=== PATIENT | female | born 1940 | race African-American/Black ===

== ENCOUNTER 2016-11-28 15:19 | Emergency (ER) | payer OTHER ==
--- NOTE | 2016-11-28 16:44 | PROVIDER DOCUMENTATION ---
Addendum entered and electronically signed by Karyn Farah CRNP 19:09: Progress - PLAN OF CARE/RESULTS Progress/Plan/Lab Results: Laboratory Tests 11/28/16 11/28/16 17:13 17:13 WBC 5.87 RBC 4.34 Hgb 12.5 Hct 38.9 MCV 89.6 MCH 28.8 MCHC 32.1 L RDW Std Deviation 15.3 H Plt Count 205 MPV 9.5 Immature Gran % (Auto) 0.0 Neut % (Auto) 60.2 Lymph % (Auto) 27.3 [place] % (Auto) 9.4 H Eos % (Auto) 2.2 Baso % (Auto) 0.9 H Immature Gran # (Auto) 0.00 Neut # (Auto) 3.54 Lymph # (Auto) 1.60 [place] # (Auto) 0.55 Eos # (Auto) 0.13 Baso # (Auto) 0.05 Sodium 134 L Potassium 4.1 Chloride 94 L Carbon Dioxide 25 Anion Gap 15 BUN 33 H Creatinine 4.8 H Estimated GFR/1.73 m2 11 BUN/Creatinine Ratio 7 Glucose 180 H Calculated Osmolality 280 Calcium 11.1 H Total Bilirubin 0.31 AST 14 ALT 5 L Alkaline Phosphatase 71 Total Protein 7.9 Albumin 3.8 Globulin 4.1 Albumin/Globulin Ratio 0.9 Orders Category Date Time Status FLAT/UPRIGHT ABD/1 VIEW CHEST [RAD] Stat Exams 11/28/16 16:37 Completed CBC WITH ELECTRONIC DIFF [HEME] Stat Lab 11/28/16 17:13 Completed COMPREHENSIVE METABOLIC PANEL [CHEM] Stat Lab 11/28/16 17:13 Completed Vital Signs - 24 hr 11/28/16 11/28/16 15:20 18:31 Temperature 97.6 F Pulse Rate 67 67 Respiratory 22 18 Rate Blood Pressure 173/70 197/69 O2 Sat by Pulse 97 98 Oximetry Addendum entered and electronically signed by Karyn Farah CRNP 18:58: Progress - CHANGE OF SHIFT REPORT (ED Provider) Report Given and Care Transferred to:: assumed care of patient from Dr. Soria Time of Transfer: 18:42 Items Pending: Other (dc home) Original Note: HPI-General Adult - General Source: patient - History of Present Illness -Gen Adult Nature of Presenting Problems: 76 yo WM complains of waking up at 2am this morning feeling 'sick.' She had a hard time defining 'sick.' Denied nausea, SOB, cough, wheeze, palpitations, CP. Finally admitted to dizziness and constipation. But overall says she does not feel right. She never misses dialysis and had it yesterday. Location of Pain/Injury: reports: none Pain Radiation: reports: no radiation Quality of Pain: reports: none Severity: reports: moderate Timing: reports: still present Context/Activities at Onset: reports: none Modifying Factors: improves with: nothing Associated Symptoms: reports: constipation, dizziness, weakness. denies: diarrhea, fever/chills, genitourinary problems, loss of appetite, muscle aches, shortness of breath, vomiting Similar Symptoms Previously?: No Recently seen or treated by another doctor?: Yes <Wilmer Soria - Last Filed: 11/28/16 16:38> <Karyn Farah - Last Filed: 11/28/16 18:57> - General Chief Complaint: Weakness Stated Complaint: weakness Time Seen by Provider: 11/28/16 16:01 Allergies/Adverse Reactions: Patient Allergies Allergy/AdvReac Type Severity Reaction Status Date / Time No Known Allergies Allergy Verified 11/28/16 15:41 Home Medications: Home Medication List Medication Instructions Recorded Confirmed Last Taken Type ATORVAstatin [Lipitor] 10 mg PO QHS 05/20/13 11/28/16 11/28/16 History Amlodipine [Norvasc] 5 mg PO DAILY 05/20/13 11/28/16 11/28/16 History Brimonidine 0.15% Ophth Soln 1 drop OP DAILY 05/20/13 11/28/16 08/27/14 05:30 History [Alphagan P 0.15% Ophth Soln] Esomeprazole [Nexium] 40 mg PO DAILY 05/20/13 11/28/16 08/27/14 05:30 History Ferrous Sulfate [Ferrousul] 325 mg PO DAILY 05/20/13 11/28/16 08/27/14 05:30 History Insulin Aspart [Novolog] 15 unit SQ QAM 05/20/13 11/28/16 08/27/14 05:30 History Insulin Glargine [Lantus] 15 unit SUBQ QHS 05/20/13 11/28/16 08/26/14 17:30 History Latanoprost 2.5 ml OP QHS 05/20/13 11/28/16 08/26/14 17:30 History Calcium Acetate 667 mg PO TID 12/25/13 11/28/16 11/27/16 History Folic Acid/Vitamin B Comp W-C 1 each PO DAILY 12/25/13 11/28/16 11/27/16 History [Nephrocaps] Polyethylene Glycol 3350 [Miralax] 255 gm PO DAILY #1 powder 11/28/16 Unknown Rx Review of Systems - Adult - REVIEW OF SYSTEMS - ADULT Constitutional: reports: see HPI. denies: chills, fever Eyes: reports: no symptoms reported Ears, Nose, Mouth & Throat: reports: no symptoms reported Cardiovascular: reports: no symptoms reported Respiratory: reports: no symptoms reported Gastrointestinal: reports: constipation (but had BM this morning) Genitourinary: reports: no symptoms reported Musculoskeletal: reports: no symptoms reported Integumentary: reports: no symptoms reported Neurological: reports: no symptoms reported Psychiatric: reports: no symptoms reported <Wilmer Soria - Last Filed: 11/28/16 16:38> Past History - Adult - PAST MEDICAL HISTORY-ADULT Review of Records: reports: Old Records Reviewed, Nursing Assessment Review, Medications Reviewed, Social history reviewed & non-contributory. 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.) Endocrine/Immune: reports: Diabetes Other Conditions: reports: cataract/glaucoma (glaucoma) - PRIOR SURGERIES/PROCEDURES Surgical/Procedure History: reports: pacemaker, indwelling device (fistula in the left arm), joint replacement (total hip) - IMMUNIZATION STATUS Childhood Immunizations: UTD Flu Vaccine: NUTD - FAMILY HISTORY Family History: reviewed, not pertinent - SOCIAL HISTORY Smoking: denies Substance Use: none/never Alcohol Use Frequency: never Living Situation: family <Wilmer Soria - Last Filed: 11/28/16 16:38> Physical Exam-General - PHYSICAL EXAM-ADULT Initial Vital Signs Reviewed: Yes - CONSTITUTIONAL General Appearance: appears well, alert - EYES Eyes: other (left eye is red, right eyelid doesn't move much) - HEAD, EARS, NOSE, MOUTH & THROAT HENMT: normocephalic/atraumatic - RESPIRATORY Respiratory: lungs clear, normal breath sounds, no pleuratic chest pain, no respiratory distress, no accessory muscle use - CARDIOVASCULAR Cardiovascular: normal peripheral pulses, regular rate, rhythm, no edema - GASTROINTESTINAL (ABDOMEN) Abdominal Exam: normal bowel sounds, non tender, soft. negative: guarding, rigid - MUSCULOSKELETAL Extremity: no pedal edema, no calf tenderness - SKIN Integumentary: normal color - NEUROLOGIC Neurologic: other (Kam's palsy on R side.) - PSYCHIATRIC Psych/Mental Status: normal mood/affect, normal thought content, normal thought process, oriented x 3 <Wimler Soria - Last Filed: 11/28/16 16:38> Departure <Wilmer Soria - Last Filed: 11/28/16 16:38> - Departure Time of Disposition Order: 18:55 Certified Medical Emergency: Emergent <Karyn Farah - Last Filed: 11/28/16 18:57> - Departure DIAGNOSIS: Constipation Qualifiers: Constipation type: other constipation type Qualified Code(s): K59.09 - Other constipation Disposition: HOME 01 Condition: Stable Additional Instructions: Follow up with your primary care doctor. ED Follow Up Instructions: You have been treated by a care provider in the Emergency Department. These instructions are being provided to you so you can have an understanding of how to care for yourself upon discharge. Upon discharge from the Emergency Department, you are responsible for making arrangements for follow-up care by a physician of your choice. Take all prescribed medications as directed. Return to the Emergency Department immediately for any new or worsening symptoms. You may call the Physician Referral phone number at [phone] to obtain a list of Physicians who are taking new patients. Prescriptions: Polyethylene Glycol 3350 [Miralax] 255 gm PO DAILY #1 powder Attestation - Physician/ CHANDRA Attestation Patient care was provided by Advanced Practice Provider:: Yes Advanced Practice Provider:: Karyn Farah Advanced Practice Provider documentation review:: The Mid-level provider documentation, treatment plan and medical decision making was reviewed by the physician who agrees with all treatment and medical decision making by the MLP. <Karyn Farah - Last Filed: 11/28/16 18:57> Physician Attestation
[2016-11-28 17:23] LABS: MANUAL DIFF NEEDED? NO
[2016-11-28 17:33] LABS: BASO% 0.9 % (0.0-0.8); EOS# 0.13 X1000 (0.0-0.7); EOS% 2.2 % (0.0-10.0); HEMATOCRIT 38.9 % (37.0-47.0); HEMOGLOBIN 12.5 g/dL (12.0-16.0); LYMPH% 27.3 % (20.5-51.1); MCH 28.8 PG (27-31); MCHC 32.1 g/dL (33-37); MCV 89.6 FL (81-99); MONO# 0.55 X1000 (0.11-0.59); MONO% 9.4 % (1.7-9.3); MPV 9.5 FL (7.4-10.4); NEUT% 60.2 % (42.2-75.2); PLT 205 X1000 (130-400); RBC 4.34 XMIL (4.2-5.4)
[2016-11-28 17:59] LABS: ALBUMIN 3.8 g/dL (3.5-5.0); CALCIUM 11.1 mg/dL (8.8-10.2); POTASSIUM 4.1 mmol/L (3.5-5.1); TOTAL BILIRUBIN 0.31 mg/dL (0.20-1.00); TOTAL PROTEIN 7.9 g/dL (6.3-8.3)
--- NOTE | 2016-11-28 18:01 | Diag Imaging Result Document ---
PROCEDURE NAME: FLAT/UPRIGHT ABD/1 VIEW CHEST - 11/28/2016 ABDOMINAL SERIES: COMPARISON: 03/25/2015. FINDINGS: The bowel gas pattern appears nonspecific and nonobstructive. There is a moderate amount of retained fecal debris in the colon. There is no free air identified. There are vascular calcifications noted. Upright chest compared with February 2015 shows stable mild cardiomegaly. There is transvenous cardiac pacemaker again seen. There is mild subsegmental atelectasis or scarring at the left base. There are no other acute changes identified. IMPRESSION: 1. Apparent constipation. Nonspecific bowel gas pattern otherwise. 2. Stable mild cardiomegaly. Mild subsegmental atelectasis or scarring at left lung base.
[2016-11-28 18:32] VITALS: BP 197/69
== END 2016-11-28 19:30 | disposition home or self-care (01) ==
LOC: ED 15:19
DX: K59.09 Other constipation (principal); R53.1 Weakness; R42 Dizziness and giddiness; Z95.0 Presence of cardiac pacemaker; I12.0 Hypertensive chronic kidney disease with stage 5 chronic kidney disease or end stage renal disease; N18.6 End stage renal disease; Z99.2 Dependence on renal dialysis; G51.0 Bell's palsy; Z79.899 Other long term (current) drug therapy; E11.9 Type 2 diabetes mellitus without complications; H40.9 Unspecified glaucoma; Z96.649 Presence of unspecified artificial hip joint; Z79.4 Long term (current) use of insulin
CPT/HCPCS: 74022; 80053; 82948; 85025

== ENCOUNTER 2016-12-07 11:57 | Emergency (ER) | payer OTHER ==
--- NOTE | 2016-12-07 12:24 | ED EKG INTERP ---
EKG Interpretation - EKG Time of EKG reading by physician:: 12:02 EKG Read and Signed by:: Abe Juarez EKG Interpretation (*Must complete 3 of following elements*): Abnormal Rate: 61 (left axis deviation; moderate voltage criteria for LVH; ST and T wave abnormality) Rhythm: atrial-paced rhythm with prolonged AV conduction Attestation - Scribe Verification/Attestation Scribe:: Machelle Chatterjee Acting as Scribe for:: Abe Juarez Scribe documention review:: This chart was documented by a scribe and accurately reflects the service the provider performed and the decisions made by the provider.
[2016-12-07] MEDS ORDERED: ASPIRIN PO STA (14:07)
--- NOTE | 2016-12-07 14:20 | PROVIDER DOCUMENTATION ---
HPI-Respiratory General - General Chief Complaint: Shortness of Breath Stated Complaint: SOB Time Seen by Provider: 12/07/16 13:37 Source: patient, family Allergies/Adverse Reactions: Patient Allergies Allergy/AdvReac Type Severity Reaction Status Date / Time No Known Allergies Allergy Verified 12/07/16 12:58 Home Medications: Home Medication List Medication Instructions Recorded Confirmed Last Taken Type ATORVAstatin [Lipitor] 10 mg PO QHS 05/20/13 12/07/16 12/07/16 History Amlodipine [Norvasc] 5 mg PO DAILY 05/20/13 12/07/16 12/07/16 History Brimonidine 0.15% Ophth Soln 1 drop OP DAILY 05/20/13 12/07/16 12/07/16 History [Alphagan P 0.15% Ophth Soln] Esomeprazole [Nexium] 40 mg PO DAILY 05/20/13 12/07/16 12/07/16 History Ferrous Sulfate [Ferrousul] 325 mg PO DAILY 05/20/13 12/07/16 12/07/16 History Insulin Aspart [Novolog] 15 unit SQ QAM 05/20/13 12/07/16 12/07/16 History Insulin Glargine [Lantus] 15 unit SUBQ QHS 05/20/13 12/07/16 12/07/16 History Latanoprost 2.5 ml OP QHS 05/20/13 12/07/16 12/07/16 History Calcium Acetate 667 mg PO TID 12/25/13 12/07/16 12/07/16 History Folic Acid/Vitamin B Comp W-C 1 each PO DAILY 12/25/13 12/07/16 12/07/16 History [Nephrocaps] Polyethylene Glycol 3350 [Miralax] 255 gm PO DAILY #1 powder 11/28/16 12/07/16 12/07/16 Rx - History of Present Illness-Resp Nature of Presenting Problem: 76 y/o F presented to the ER complaining of sudden intermittent and frequent episodes of shortness of breath while she is laying down in bed. She stated that she does not have chest pain, palpitation, dizziness, cough, fever or chills. Daughter at bedside states that the episode usually last for 3-5 minutes and reoccur every 10-15 minutes. She has no hx of viral illness or cancer. Patient walks around with a cane. Quality of Pain: reports: none Severity in ED: reports: moderate Onset/Duration: reports: abrupt, 1 hour ago Timing: reports: intermittent Context: denies: recent URI Cough Quality/Degree: reports: no cough Episode Frequency: frequent episodes Current Respiratory Medication Therapy: Initiated none Modifying Factors: improves with: nothing Associated Symptoms: reports: denies symptoms. denies: chest pain/soreness, flu -like symptoms Similar Symptoms Previously?: Yes Recently seen or treated by another doctor?: No Review of Systems - Adult - REVIEW OF SYSTEMS - ADULT ROS:: limited per condition Constitutional: reports: fatique. denies: chills, fever Eyes: reports: no symptoms reported Ears, Nose, Mouth & Throat: reports: hearing loss Cardiovascular: reports: no symptoms reported Respiratory: reports: shortness of breath. denies: cough, hemoptysis Gastrointestinal: reports: no symptoms reported Genitourinary: reports: no symptoms reported Musculoskeletal: reports: no symptoms reported Integumentary: reports: no symptoms reported Neurological: reports: other (left sided facial palys due to internal ear infection complication) Psychiatric: reports: no symptoms reported Endocrine: reports: no symptoms reported Hematologic/Lymphatic: reports: no symptoms reported Allergic/Immunologic: reports: no symptoms reported All Other Systems: Reviewed and Negative Past History - Adult - PAST MEDICAL HISTORY-ADULT Review of Records: reports: Nursing Assessment Review, Medications Reviewed 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.) Psychiatric: reports: denies history Endocrine/Immune: reports: denies history, Diabetes Other Conditions: reports: cataract/glaucoma (glaucoma) - PRIOR SURGERIES/PROCEDURES Surgical/Procedure History: reports: pacemaker, indwelling device (fistula in the left arm), joint replacement (total hip) - IMMUNIZATION STATUS Childhood Immunizations: UTD Flu Vaccine: NUTD - FAMILY HISTORY Family History: reviewed, not pertinent Physical Exam-General - PHYSICAL EXAM-ADULT Initial Vital Signs Reviewed: Yes - CONSTITUTIONAL General Appearance: mild distress - EYES Eyes: PERRL/EOMI - HEAD, EARS, NOSE, MOUTH & THROAT HENMT: normocephalic/atraumatic, hearing deficit, other (left sided facial palsy secondary to an old ear infex) - NECK Neck: supple - RESPIRATORY Respiratory: lungs clear, normal breath sounds - CARDIOVASCULAR Cardiovascular: regular rate, rhythm, no edema - GASTROINTESTINAL (ABDOMEN) Abdominal Exam: normal bowel sounds, soft - LYMPHATIC Lymphatic: no adenopathy - MUSCULOSKELETAL Extremity: normal range of motion, no pedal edema, other (AV fistula - murmur) - SKIN Integumentary: warm/dry - PSYCHIATRIC Psych/Mental Status: normal mood/affect Progress - PLAN OF CARE/RESULTS Progress/Plan/Lab Results: Vital Signs - 24 hr 12/07/16 11:59 Temperature 98.2 F Pulse Rate 60 Respiratory 20 Rate Blood Pressure 116/43 O2 Sat by Pulse 98 Oximetry Vital Signs - 24 hr 12/07/16 11:59 Temperature 98.2 F Pulse Rate 60 Respiratory 20 Rate Blood Pressure 116/43 O2 Sat by Pulse 98 Oximetry Laboratory Tests 12/07/16 12/07/16 12/07/16 12:48 14:47 14:47 WBC 5.69 RBC 4.18 L Hgb 12.2 Hct 37.3 MCV 89.2 MCH 29.2 MCHC 32.7 L RDW Std Deviation 15.3 H Plt Count 209 MPV 9.7 Immature Gran % (Auto) 0.0 Neut % (Auto) 50.2 Lymph % (Auto) 34.1 [place] % (Auto) 12.5 H Eos % (Auto) 2.5 Baso % (Auto) 0.7 Immature Gran # (Auto) 0.00 Neut # (Auto) 2.86 Lymph # (Auto) 1.94 [place] # (Auto) 0.71 H Eos # (Auto) 0.14 Baso # (Auto) 0.04 PT 10.4 INR 1.02 PTT (Actin FS) 25.6 Troponin T 0.107 H Orders Category Date Time Status Cardiac Monitoring DIRECTED Care 12/07/16 14:10 Active Check glucose DIRECTED Care 12/07/16 16:22 Active Oxygen Therapy- ED Nursing DIRECTED Care 12/07/16 14:11 Active Saline Loc NOW Care 12/07/16 14:10 Active CHEST-2 VIEWS [RAD] Stat Exams 12/07/16 14:10 Completed ABG [RESP] Routine Lab 12/07/16 17:30 Completed BMP [BASIC METABOLIC PANEL] [CHEM] Stat Lab 12/07/16 14:47 Completed CBC WITH ELECTRONIC DIFF [HEME] Stat Lab 12/07/16 12:48 Completed CK PROFILE [SP CHEM] Stat Lab 12/07/16 14:47 Completed D-DIMER [CHEM] Stat Lab 12/07/16 14:47 Completed MAGNESIUM [CHEM] Stat Lab 12/07/16 14:47 Completed PRO B-NATRIURETIC PEPTIDE Stat Lab 12/07/16 14:47 Completed PROTIME WITH INR [COAG] Stat Lab 12/07/16 14:47 Completed PTT [COAG] Stat Lab 12/07/16 14:47 Completed TROPONIN T Stat Lab 12/07/16 14:47 Completed TROPONIN T Stat Lab 12/07/16 16:55 Completed Aspirin Med 12/07/16 14:07 Discontinued 325 mg PO STAT STA Dextrose 50% Syringe [D50w Syringe] Med 12/07/16 16:43 Discontinued 50 ml IV NOW ONE EKG [EKG] Stat Ther 12/07/16 14:10 Ordered Laboratory Tests 12/07/16 12/07/16 12/07/16 12:48 14:47 14:47 WBC 5.69 RBC 4.18 L Hgb 12.2 Hct 37.3 MCV 89.2 MCH 29.2 MCHC 32.7 L RDW Std Deviation 15.3 H Plt Count 209 MPV 9.7 Immature Gran % (Auto) 0.0 Neut % (Auto) 50.2 Lymph % (Auto) 34.1 [place] % (Auto) 12.5 H Eos % (Auto) 2.5 Baso % (Auto) 0.7 Immature Gran # (Auto) 0.00 Neut # (Auto) 2.86 Lymph # (Auto) 1.94 [place] # (Auto) 0.71 H Eos # (Auto) 0.14 Baso # (Auto) 0.04 PT INR PTT (Actin FS) D-Dimer 0.66 H Specimen Type Sample Site pH pCO2 pO2 HCO3 Base Excess Oxyhemoglobin ABG O2 Sat (Calculated) ABG O2 Saturation ABG Carboxyhemoglobin ABG Methemoglobin [place] Test A-a O2 Difference Total Hemoglobin Lactate Blood Gas Modality FiO2 % Sodium 134 L Potassium 3.8 Chloride 91 L Carbon Dioxide 27 Anion Gap 16 BUN 33 H Creatinine 4.5 H Estimated GFR/1.73 m2 11 BUN/Creatinine Ratio 7 Glucose 64 L Calculated Osmolality 274 Calcium 11.1 H Magnesium 2.2 Creatine Kinase 37 Troponin T [id number]-O-Hqstncdtfui Pept 12/07/16 12/07/16 12/07/16 14:47 14:47 14:47 WBC RBC Hgb Hct MCV MCH MCHC RDW Std Deviation Plt Count MPV Immature Gran % (Auto) Neut % (Auto) Lymph % (Auto) [place] % (Auto) Eos % (Auto) Baso % (Auto) Immature Gran # (Auto) Neut # (Auto) Lymph # (Auto) [place] # (Auto) Eos # (Auto) Baso # (Auto) PT 10.4 INR 1.02 PTT (Actin FS) 25.6 D-Dimer Specimen Type Sample Site pH pCO2 pO2 HCO3 Base Excess Oxyhemoglobin ABG O2 Sat (Calculated) ABG O2 Saturation ABG Carboxyhemoglobin ABG Methemoglobin [place] Test A-a O2 Difference Total Hemoglobin Lactate Blood Gas Modality FiO2 % Sodium Potassium Chloride Carbon Dioxide Anion Gap BUN Creatinine Estimated GFR/1.73 m2 BUN/Creatinine Ratio Glucose Calculated Osmolality Calcium Magnesium Creatine Kinase Troponin T 0.107 H Gpj-H-Lnyldhqnzvx Pept 6929 H 12/07/16 12/07/16 16:55 17:30 WBC RBC Hgb Hct MCV MCH MCHC RDW Std Deviation Plt Count MPV Immature Gran % (Auto) Neut % (Auto) Lymph % (Auto) [place] % (Auto) Eos % (Auto) Baso % (Auto) Immature Gran # (Auto) Neut # (Auto) Lymph # (Auto) [place] # (Auto) Eos # (Auto) Baso # (Auto) PT INR PTT (Actin FS) D-Dimer Specimen Type ARTERIAL Sample Site R RADIAL pH 7.44 pCO2 42 pO2 78 HCO3 27.8 H Base Excess 3.9 H Oxyhemoglobin 92.3 L ABG O2 Sat (Calculated) 16.3 ABG O2 Saturation 96.5 ABG Carboxyhemoglobin 2.70 H ABG Methemoglobin 1.7 H [place] Test YES A-a O2 Difference 19.0 Total Hemoglobin 12.5 Lactate 0.60 Blood Gas Modality ROOM AIR FiO2 % 21.0 Sodium Potassium Chloride Carbon Dioxide Anion Gap BUN Creatinine Estimated GFR/1.73 m2 BUN/Creatinine Ratio Glucose Calculated Osmolality Calcium Magnesium Creatine Kinase Troponin T 0.101 H Nzc-J-Dwjnujnsomf Pept - REASSESSMENT Reassessment #1 Time Reassessed: 17:42 Status: improving - XRAY 1 Impression: Normal Departure - Departure Time of Disposition Order: 17:42 DIAGNOSIS: Apneic episode Disposition: HOME 01 Certified Medical Emergency: Emergent Condition: Fair Referrals: Rick Anderson MD [Primary Care Provider] - Ko Mojica MD [STAFF PHYSICIAN] - Call for Appoint. -1 week (Apneic episodes. CTA, EKG, CXR, ABG, CBC and BMP are WNL. Patient might need polysomnography) Instructions: Sleep Apnea, Oxfy-gq-Ostt
[2016-12-07 14:30] LABS: MANUAL DIFF NEEDED? NO
[2016-12-07 14:38] LABS: BASO% 0.7 % (0.0-0.8); EOS# 0.14 X1000 (0.0-0.7); EOS% 2.5 % (0.0-10.0); HEMATOCRIT 37.3 % (37.0-47.0); HEMOGLOBIN 12.2 g/dL (12.0-16.0); LYMPH# 1.94 X1000 (1.2-3.4); LYMPH% 34.1 % (20.5-51.1); MCH 29.2 PG (27-31); MCHC 32.7 g/dL (33-37); MCV 89.2 FL (81-99); MONO# 0.71 X1000 (0.11-0.59); MONO% 12.5 % (1.7-9.3); MPV 9.7 FL (7.4-10.4); NEUT% 50.2 % (42.2-75.2); PLT 209 X1000 (130-400); RBC 4.18 XMIL (4.2-5.4)
[2016-12-07 15:15] LABS: INR 1.02; PROTIME 10.4 Seconds (9.2-11.7); PTT 25.6 Seconds (22.0-36.0)
[2016-12-07 15:29] LABS: CALCIUM 11.1 mg/dL (8.8-10.2); MAGNESIUM 2.2 mg/dL (1.5-2.7); POTASSIUM 3.8 mmol/L (3.5-5.1)
[2016-12-07] MEDS ORDERED: D50W SYRINGE IV ONE (16:43)
[2016-12-07 16:56] VITALS: BP 129/77
--- NOTE | 2016-12-07 17:24 | Diag Imaging Result Document ---
PROCEDURE NAME: CHEST-2 VIEWS - 12/07/2016 FRONTAL AND LATERAL CHEST, 2 VIEWS: FINDINGS: Compared to 11/28/2016. The patient has a left-sided pacemaker. The lungs are well expanded. The heart is mildly prominent. The vessels are not distended. No pneumonia. No pleural effusions. No free air beneath the diaphragm. IMPRESSION: Stable chest.
[2016-12-07 17:38] LABS: ALLEN TEST YES; BE 3.9 mmoll (-3.0-3.0); BLOOD TYPE ARTERIAL; DRAW SITE R RADIAL; METHB 1.7 % (0.0-1.5); O2(CT) 16.3 mL/dL (15.0-23.0); PCO2(98.6) 42 mmHg (35-45); PO2(98.6) 78 mmHg (60-100); SAMPLE BLOOD; SAO2 96.5 % (95.0-100.0); THB 12.5 g/dL (11.5-17.4); pH(98.6) 7.44 (7.35-7.45)
[2016-12-07 17:39] LABS: MODALITY ROOM AIR
[2016-12-07] MEDS ORDERED: DEMEROL IV ONE (18:05)
--- NOTE | 2016-12-08 09:22 | EKG Report ---
Test Performed on : 12/07/2016 12:02:24 PM Test Reason : Chest Pain Blood Pressure : / mmHG Vent. Rate : 061 BPM Atrial Rate : 061 BPM P-R Int : 234 ms QRS Dur : 094 ms QT Int : 400 ms P-R-T Axes : 056 -42 000 degrees QTc Int : 402 ms Atrial-paced rhythm with prolonged AV conduction Left axis deviation Moderate voltage criteria for LVH, may be normal variant ST & T wave abnormality, consider lateral ischemia Abnormal ECG When compared with ECG of 25-MAR-2015 19:58, ST now depressed in Inferior leads Nonspecific T wave abnormality now evident in Inferior leads T wave inversion now evident in Anterolateral leads QT has shortened Unconfirmed Result
== END 2016-12-07 18:26 | disposition home or self-care (01) ==
LOC: ED 11:57
DX: R06.81 Apnea, not elsewhere classified (principal); R06.02 Shortness of breath; R53.83 Other fatigue; G51.0 Bell's palsy; Z95.0 Presence of cardiac pacemaker; I12.0 Hypertensive chronic kidney disease with stage 5 chronic kidney disease or end stage renal disease; N18.6 End stage renal disease; E11.9 Type 2 diabetes mellitus without complications; Z79.899 Other long term (current) drug therapy; Z99.2 Dependence on renal dialysis; H40.9 Unspecified glaucoma; Z96.649 Presence of unspecified artificial hip joint; R94.31 Abnormal electrocardiogram [ECG] [EKG]; Z79.4 Long term (current) use of insulin
CPT/HCPCS: 36415; 71020; 80048; 82550; 82805; 82948; 83735; 83880; 84484; 85025; 85379; 85610; 85730; 93005; 96374; 96375; J2175

== ENCOUNTER 2017-06-12 23:51 | Inpatient (IN) ==
[2017-06-13 00:10] LABS: MANUAL DIFF NEEDED? NO
[2017-06-13 00:16] LABS: BASO% 0.8 % (0.0-0.8); EOS# 0.23 X1000 (0.0-0.7); EOS% 3.9 % (0.0-10.0); HEMATOCRIT 32.1 % (37.0-47.0); HEMOGLOBIN 10.4 g/dL (12.0-16.0); IMM GRAN# 0.02 X1000 (0.0-0.04); IMM GRAN% 0.3 % (0.0-0.5); LYMPH# 1.59 X1000 (1.2-3.4); LYMPH% 26.9 % (20.5-51.1); MCH 28.5 PG (27-31); MCHC 32.4 g/dL (33-37); MCV 87.9 FL (81-99); MONO# 0.49 X1000 (0.11-0.59); MONO% 8.3 % (1.7-9.3); MPV 9.5 FL (7.4-10.4); NEUT% 59.8 % (42.2-75.2); PLT 244 X1000 (130-400); RBC 3.65 XMIL (4.2-5.4)
[2017-06-13 00:27] LABS: INR 1.07; PROTIME 11.3 Seconds (9.2-11.7)
[2017-06-13 00:32] LABS: ALBUMIN 3.9 g/dL (3.5-5.0); CALCIUM 8.3 mg/dL (8.8-10.2); MAGNESIUM 1.8 mg/dL (1.5-2.7); POTASSIUM 3.1 mmol/L (3.5-5.1); TOTAL BILIRUBIN 0.22 mg/dL (0.20-1.00)
[2017-06-13] MEDS ORDERED: TYLENOL PO PRN (04:37)
[2017-06-13] MEDS ORDERED: ZOFRAN IV PRN (04:37)
--- NOTE | 2017-06-13 04:55 | HISTORY AND PHYSICAL ---
PRIMARY CARE PHYSICIAN: Dr. Anderson. CHIEF COMPLAINT: Chest pain, shortness of breath. HISTORY OF PRESENTING ILLNESS: A 76-year-old elderly female with a history of end-stage renal disease, on renal dialysis Thursday, and Thursday, hypertension, diabetes mellitus type 2, had presented to the emergency department due to patient having chest pain and shortness of breath. The patient was seen initially in the emergency department. She was hypotensive and she was given some fluids and her pressure had improved. She was somewhat still symptomatic and due to her presenting symptoms it was thought that she would need admission for further management. At the time of my examination, she had denied any headache, fever, chills, hemoptysis, melena, but complained of chest pain and shortness of breath. PAST MEDICAL HISTORY: Includes end-stage renal disease, on renal dialysis Thursday, and Thursday, hypertension, diabetes mellitus type 2. PAST SURGICAL HISTORY: Pacemaker, bilateral hip replacement. ALLERGIES: No known drug allergies. CURRENT MEDICATIONS: As listed on the medication reconciliation sheet. SOCIAL HISTORY: No history of smoking, alcohol or illicit drug use. FAMILY HISTORY: No history of coronary disease. REVIEW OF SYSTEMS: Twelve point review of systems is as in HPI. Other systems negative. PHYSICAL EXAMINATION: GENERAL: Cooperative, friendly female. She is resting more comfortably now. VITAL SIGNS: Temperature 98.1 degrees, pulse 74, respirations 20, blood pressure 167/71 and she is saturating 95%. HEENT: Atraumatic, normocephalic. Extraocular movements intact. PERRLA. NECK: No masses. CHEST: Bibasilar rales. CARDIOVASCULAR: Regular rate and rhythm. ABDOMEN: Soft. Positive bowel sounds. EXTREMITIES: Trace edema. NEUROLOGIC: She is awake, alert, oriented x2. GENITOURINARY: No bladder distention. SKIN: Warm. LABORATORIES AND STUDIES: Sodium 136, potassium 3.1, chloride 90, CO2 is 25, BUN 35, creatinine is 4.7, glucose is 170. ProBNP is 7156. ASSESSMENT: A 76-year-old elderly female with a history of end-stage renal disease, hypertension, diabetes mellitus type 2 was brought to the emergency department due to patient having chest pain and shortness of breath. She apparently was also having some mental status changes and she was evaluated in the emergency room. Initially, she was hypotensive then her blood pressure resumed back within normal limits. However, due to presenting symptoms she will need admission for further management. 1. Altered mental status. 2. Chest pain. 3. Dyspnea, suspected volume overload. 4. Hypotension, now normotensive. 5. End-stage renal disease. 6. Hypertension. 7. Diabetes mellitus type 2. PLAN: 1. We will admit patient to [facility]. 2. We will continue with neuro checks. 3. We will continue to trend cardiac enzymes. 4. We will consult Nephrology for dialysis. 5. We will also consult Cardiology for chest pain. 6. We will monitor blood pressure closely. 7. Put patient on sliding scale insulin regimen. 8. We will put patient on DVT prophylaxis with SCD. 9. Patient is full code. 10. We will continue to follow and reassess. cc: Manuel Gonzalez MD
--- NOTE | 2017-06-13 07:46 | Diag Imaging Result Doc PS360 ---
EXAM: CHEST-PORTABLE HISTORY: SOB; possible fluid overload TECHNIQUE: Erect AP portable at 0005 COMMENT: The inspiration is slightly less optimal than on 12/07/2016. Otherwise, there has been no significant change in the appearance of the chest. IMPRESSION: Borderline cardiomegaly. Electronically signed by Gage Murguia 06/13/2017 7:44 AM
--- NOTE | 2017-06-13 08:10 | Diag Imaging Result Doc PS360 ---
EXAM: CT THORAX W/O CONTRAST HISTORY: cp TECHNIQUE: CT of the chest without contrast with dose reduction (clarity.) COMMENT: There are some linear opacities present in both lung bases suggesting atelectasis or fibrosis. The esophagus contains fluid and there is a hiatal hernia. There are granulomatous calcifications present in the right lower lobe and middle lobe. The thyroid gland is inhomogeneous and somewhat enlarged with a calcification on the left. There is no evidence of significant adenopathy. There is extensive coronary atherosclerotic calcification. There is arteriosclerosis throughout the abdomen. IMPRESSION: 1. Atelectasis and/or fibrosis in the lung bases. 2. Arteriosclerosis. 3. Multinodular goiter. 4. Hiatal hernia with possible reflux. Electronically signed by Gage Murguia 06/13/2017 8:07 AM
[2017-06-13] MEDS ORDERED: HEPARIN IV PRN (09:41)
[2017-06-13] MEDS ORDERED: NS 2,000 ML MISC PRN (09:41)
[2017-06-13] MEDS ORDERED: TIGHT: 0.2 ML/HR MISC PRN (09:41)
[2017-06-13] MEDS ORDERED: HEPARIN ONE (10:37)
[2017-06-13] MEDS ORDERED: NS 2,000 ML ONE (10:37)
[2017-06-13] MEDS ORDERED: EPOGEN SUBQ ONE (13:57)
[2017-06-13] MEDS: HUMULIN R SUBQ SCH ×2 (15:30→15:35)
--- NOTE | 2017-06-13 16:53 | CONSULTATION ---
DATE OF CONSULTATION: 06/13/2017 INDICATION: Chest pain. HISTORY OF PRESENT ILLNESS: Ms Kline is a 76-year-old black female with a history of end-stage renal disease currently followed by Dr. Vergara, last visit in January 2017. She has a history of sick sinus syndrome with permanent pacemaker implantation in 2011. She presented for evaluation of chest pain that was tight in nature and located in the upper chest area. It lasted for several minutes. It occurred while at rest. There was no other exertional component to this symptom. She reports compliance with all of her dialysis sessions and she would stay for the entire treatment. She has had no recent issues with dialysis and adheres to her Thursday, , Thursday schedule. PAST MEDICAL HISTORY: 1. End-stage renal disease, Thursday, , Thursday dialysis. 2. Hypertension. 3. Diabetes mellitus. 4. History of sick sinus syndrome status post dual chamber Chava permanent pacemaker implantation. SOCIAL HISTORY: No history of tobacco, alcohol or illicit drugs. FAMILY HISTORY: Significant for hypertension. REVIEW OF SYSTEMS: A 10 system review of systems is negative except for those things mentioned in HPI. PHYSICAL EXAMINATION: Vital signs: She is afebrile. Heart rate is 75, her blood pressures have been markedly elevated. The most recent was 188/100. General: She is in no acute distress. HEENT: Oropharynx is moist. Poor dentition. Eye examination shows pink conjunctivae. White sclerae. Neck: Examination shows no obvious thyromegaly or thyroid tenderness. Cardiovascular: She sounds to be in a regular rate and rhythm. She has no murmurs, no S3, no lower extremity edema. Chest: Exam sounds clear to auscultation bilaterally. She has no increased work of breathing. Abdomen: Soft, nontender, nondistended. She has no obvious organomegaly. Skin Exam: Warm and dry throughout without any rashes. 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 Psychiatric: Alert , oriented, pleasant. Normal mood and affect. PERTINENT DATA: Her chest CT without contrast showed atelectasis or fibrosis in bilateral lung bases, evidence for atherosclerosis identified in the coronaries well as throughout the abdominal areas imaged, multinodular goiter, hiatal hernia was visualized as well. Laboratory data shows a white count of 5.9, hematocrit 32, platelet count 244,000, INR 1.07, sodium 136 , potassium 3.1, BUN 35, creatinine 4.7. Her proBNP was 7156. Cardiac enzymes negative times multiple sets. ASSESSMENT: Chest pain in a patient with risk factors for coronary disease, including diabetes, end-stage renal disease and hypertension. PLAN: We will likely check an echocardiogram in the near future. Cardiac enzymes have been negative times multiple sets. We will consider obtaining a myocardial perfusion scan to further evaluate her from an ischemia standpoint. This will likely be performed on Thursday. cc: MD Rick Lowe MD MTDD
[2017-06-13] MEDS: NORVASC PO SCH (18:37)
[2017-06-13] MEDS: CELEXA PO SCH (18:37)
[2017-06-13] MEDS: LIPITOR PO SCH (20:57)
[2017-06-13] MEDS: XANAX PO SCH (20:57)
[2017-06-13] MEDS: XALATAN 0.005% OPH SOLN RIGHT EYE SCH (20:58)
[2017-06-13] MEDS: NEURONTIN PO SCH (20:58)
--- NOTE | 2017-06-13 21:06 | CONSULTATION ---
DATE OF CONSULTATION: 06/13/2017 REASON FOR CONSULTATION: Assistance with management ESRD and volume overload. HISTORY OF PRESENT ILLNESS: Ms Kline is a 76-year-old black female who is well known to me. She is receiving chronic hemodialysis in our clinic in [place]. She normally attends Thursday, and Thursday. She came to the emergency room because she was feeling bad. She is having some trouble characterizing it but she describes being diaphoretic and weak with some increasing shortness of breath. No chills or fevers that she can relate. No nausea or vomiting. No diarrhea. Because her symptoms were worsening, she was brought to the emergency room for evaluation. There is a mention in the note of low blood pressure but all documented blood pressures were within normal limits. She did undergo a CT of the chest which did not demonstrate pulmonary edema. PAST MEDICAL HISTORY: Diabetes, hypertension, end-stage kidney disease, pacemaker, coronary disease. HOME MEDICATIONS: Include Latanoprost drops, amlodipine, atorvastatin, calcium acetate, Simbrinza, alprazolam, hydralazine, citalopram. ALLERGIES: None. SOCIAL HISTORY: She is and lives with her who unfortunately is also quite ill. He has end-stage cardiomyopathy and is on home dobutamine therapy. FAMILY HISTORY: Noncontributory. REVIEW OF SYSTEMS: Otherwise noncontributory. PHYSICAL EXAMINATION: Vital Signs: Blood pressure 179/68, heart rate 70, respirations 13. Afebrile. Generally: She is in no acute distress. Somewhat anxious however. Skin: Somewhat moist and cool. Pupils are equal. Conjunctivae are pink. Oropharynx is dry. Normal dentition. Neck: Supple. Trachea is midline. Neck vein distention is present. Heart: Regular without gallops or murmurs. Lungs: Have equal breath sounds. No crackles or wheezes. Abdomen: Soft, nontender. Bowel sounds present. No organomegaly, masses or bruits. Extremities: Have trace to 1+ edema. No clubbing or cyanosis. Neurologic Exam: Grossly nonfocal except for her hyperacuity. LABORATORY DATA: Are reviewed. IMPRESSION: 1. End-stage kidney disease. She is due for her routine dialysis today. She is actually below her outpatient dry weight so we will remove 2 kg and lower her dry weight. Again her chest CAT scan had no evidence of pulmonary edema. 2. Electrolytes: We will use a 3 potassium bath today because her potassium is below target. 3. Acid base in target. 4. Anemia within target. Will dose with erythropoietin for maintenance. cc: MD Rick Galvan MD
[2017-06-14] MEDS: HUMULIN R SUBQ SCH ×6 (01:46→21:02)
--- NOTE | 2017-06-14 03:53 | PROGRESS NOTE ---
DATE: 06/13/2017 SUBJECTIVE: Patient seen. She is confused. Does appear to be having some chest pain. Denies any fevers or chills. Denies any GI or issues. PHYSICAL EXAMINATION: Vital Signs: Temperature 98, pulse is 68, respiratory rate 18, BP 144/73, saturation 98% on room air. General: Patient is awake and alert. She is in no respiratory distress. She is confused. HEENT: Normocephalic, atraumatic. Neck: Supple. No JVD. CV: Regular rate. Chest: Clear. Abdomen: Soft, nondistended. Extremities: Moves all extremities. ASSESSMENT: 1. Chest pain. 2. End-stage renal disease, on hemodialysis. 3. Hypertension. 4. Diabetes type 2. PLAN: We will continue patient in the hospital. Continue to follow her labs. We will check urine and blood cultures. Further orders as needed. cc: MD Rick Moreau MD
[2017-06-14 05:40] LABS: MANUAL DIFF NEEDED? NO
[2017-06-14 05:51] LABS: BASO% 0.9 % (0.0-0.8); EOS# 0.28 X1000 (0.0-0.7); EOS% 4.3 % (0.0-10.0); LYMPH# 1.38 X1000 (1.2-3.4); LYMPH% 21.4 % (20.5-51.1); MCH 28.7 PG (27-31); MCHC 32.4 g/dL (33-37); MCV 88.8 FL (81-99); MONO# 0.52 X1000 (0.11-0.59); MPV 9.2 FL (7.4-10.4); NEUT% 65.4 % (42.2-75.2); PLT 259 X1000 (130-400); RBC 3.83 XMIL (4.2-5.4)
[2017-06-14 06:07] LABS: CALCIUM 9.4 mg/dL (8.8-10.2); POTASSIUM 3.5 mmol/L (3.5-5.1)
[2017-06-14] MEDS: NORVASC PO SCH (08:29)
[2017-06-14] MEDS: PHOSLO PO SCH ×3 (08:29→17:18)
[2017-06-14] MEDS: PATIENT'S OWN MED OPH SCH (08:29)
[2017-06-14] MEDS: CELEXA PO SCH (08:29)
[2017-06-14] MEDS: APRESOLINE PO SCH ×3 (08:29→17:17)
[2017-06-14] MEDS: XANAX PO SCH (08:29)
--- NOTE | 2017-06-14 13:04 | PROGRESS NOTE ---
DATE: 06/14/2017 SUBJECTIVE: She is not complaining of any chest pain, although she had a somewhat large bowel movement this morning and has had some left upper quadrant discomfort since that time. OBJECTIVE: Vital signs: She is afebrile. Heart rate of 59, blood pressure is 182/59 presently and has been quite elevated in the 170s to 190s for roughly 24 hours. General: She is in mild distress secondary to her abdominal discomfort. Cardiovascular: She is in a regular rate and rhythm. No murmurs. No S3. No lower extremity edema. Chest: Exam is clear bilaterally. She has no increased work of breathing. Abdomen: Soft, nontender. There is no left upper quadrant tenderness. No palpable masses. Skin Exam: Warm and dry throughout without any rashes PERTINENT DATA: White count 6.5, hematocrit 34, platelet count 259,000. Sodium 136, potassium 3.5, BUN 17, creatinine is 3.4. ASSESSMENT: 1. Chest discomfort concerning for possible angina. 2. Abdominal discomfort. 3. Hypertension. PLAN: We will proceed with myocardial perfusion imaging in the morning. She has been made NPO after midnight for the procedure. We will check a flat and upright abdomen x-ray. I believe most likely it is possibly just gas related pains secondary to the large bowel movement this morning. Her blood pressure continues to be quite elevated. We will continue to titrate her medications. I will increase the amlodipine up to a total of 10 mg. cc: MD Rick Lowe MD
--- NOTE | 2017-06-14 13:21 | Diag Imaging Result Doc PS360 ---
EXAM: ABDOMEN FLAT/UPRIGHT HISTORY: abdominal pain TECHNIQUE: Flat and upright abdomen COMMENT: There is radiopaque material throughout the colon. There is some gaseous dilatation of small bowel loops in the midabdomen. The stomach is not distended. 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 Compared to 11/28/2016 the small bowel gas is more notable, otherwise has been no significant change. IMPRESSION: Ileus versus partial small bowel obstruction. Electronically signed by Gage Murguia 06/14/2017 1:19 PM
--- NOTE | 2017-06-14 14:03 | PROGRESS NOTE ---
DATE: 06/14/2017 SUBJECTIVE: Patient without any new complaints this morning. In fact, she states that she just woke up and it is too early for her to have complaints. Denies any diarrhea, constipation, melena. Denies any nausea or vomiting. States her chest pain is better. ASSESSMENT: 1. Acute delirium, improving. 2. Chest pain, stable. 3. Volume overload, improving. 4. End-stage renal disease, on hemodialysis, stable. 5. Type 2 diabetes. PLAN: We will continue to follow and adjust medications as needed. cc: MD Rick Moreau MD
--- NOTE | 2017-06-14 14:39 | ECHO REPORT ---
ORDER DATE: 06/14/2017 INDICATION: 1. Chest pain. 2. History of end-stage renal disease. FINDINGS: 1. The right atrium appears normal size. 2. Mild tricuspid regurgitation. RV systolic pressure is 61. 3. Normal RV size and systolic function. 4. No significant pulmonic insufficiency. 5. Mild left atrial enlargement at 4.8 cm. 6. No mitral prolapse. Mild mitral regurgitation. 7. Normal LV size, end-diastolic dimension of 5.2. Mild left ventricular hypertrophy with a posterior and interventricular septal wall thickness of 1.2 cm each. The LV systolic function does appear somewhat hyperdynamic, with an estimated EF greater than 70%. No obvious segmental wall motion abnormalities. 8. Aortic valve opens well. No evidence of stenosis or insufficiency. 9. Aorta appears normal in visualized segments. 10. No pericardial effusion seen. cc: MD Rick Lowe MD
[2017-06-14] MEDS: NEURONTIN PO SCH (21:00)
[2017-06-14] MEDS: XALATAN 0.005% OPH SOLN RIGHT EYE SCH (21:00)
[2017-06-14] MEDS: LIPITOR PO SCH (21:00)
[2017-06-15] MEDS ORDERED: D50W SYRINGE ONE (05:58)
[2017-06-15] MEDS: HUMULIN R SUBQ SCH ×4 (06:13→21:39)
--- NOTE | 2017-06-15 06:22 | EKG Report ---
Test Performed on : 06/13/2017 4:39:04 PM Test Reason : order Blood Pressure : / mmHG Vent. Rate : 076 BPM Atrial Rate : 076 BPM P-R Int : 204 ms QRS Dur : 090 ms QT Int : 436 ms P-R-T Axes : 045 -43 062 degrees QTc Int : 490 ms Normal sinus rhythm. Left axis deviation Prolonged QT Abnormal ECG When compared with ECG of 12-JUN-2017 23:47, (Unconfirmed) Nonspecific T wave abnormality, improved in Lateral leads Confirmed by Shekhar Crow MD ([id number]) on 06/17/2017 5:50:47 PM
[2017-06-15 06:23] LABS: ALBUMIN 3.8 g/dL (3.5-5.0); CALCIUM 9.6 mg/dL (8.8-10.2); POTASSIUM 4.1 mmol/L (3.5-5.1)
--- NOTE | 2017-06-15 06:44 | EKG Report ---
Test Performed on : 06/12/2017 11:47:32 PM Test Reason : Chest Pain Blood Pressure : / mmHG Vent. Rate : 073 BPM Atrial Rate : 073 BPM P-R Int : 222 ms QRS Dur : 094 ms QT Int : 442 ms P-R-T Axes : 047 -40 038 degrees QTc Int : 486 ms Sinus rhythm. with 1st degree AV block. Possible Left atrial enlargement Left axis deviation Left ventricular hypertrophy Abnormal ECG When compared with ECG of 31-MAY-2017 17:42, No significant change was found Unconfirmed Result
[2017-06-15] MEDS ORDERED: LEXISCAN ONE (07:59)
[2017-06-15] MEDS ORDERED: EPOGEN SUBQ SCH (09:00)
[2017-06-15] MEDS: NORVASC PO SCH (10:59)
[2017-06-15] MEDS: PATIENT'S OWN MED OPH SCH (10:59)
[2017-06-15] MEDS: CELEXA PO SCH (10:59)
[2017-06-15] MEDS: APRESOLINE PO SCH ×3 (10:59→16:15)
[2017-06-15] MEDS: PHOSLO PO SCH ×3 (10:59→16:15)
--- NOTE | 2017-06-15 13:45 | Diag Imaging Result Document ---
PROCEDURE NAME: MYOCARDIAL PERF SCAN, STR/REST - 06/15/2017 MYOCARDIAL PERFUSION SCAN: INDICATION: Chest pain. PROCEDURES PERFORMED: 1. Lexiscan stress. 2. One day stress rest myocardial perfusion imaging. PROCEDURE IN DETAIL: Ms. Kline was brought to the nuclear laboratory and had a resting study with injection of 12.8 mCi of technetium-99m sestamibi with usual imaging protocol utilized. Subsequently she was brought back and had a Lexiscan stress and at peak stress, was injected with 35.9 mCi of technetium-99m sestamibi with usual imaging protocol utilized. FINDINGS: LEXISCAN STRESS RESULTS: 1. Baseline EKG shows an atrial paced rhythm. 2. No clear evidence of ischemic related EKG changes or significant arrhythmias occurred during the course of the Lexiscan stress. She did appear to have ventricular paced beat during the course of the study. PERFUSION IMAGING RESULTS: 1. No evidence of abnormal extracardiac uptake. 2. TID ratio is 1.06. 3. Perfusion imaging shows a small size, mild intensity, fixed defect in the inferior apical and mid inferior segments. This is most likely soft tissue attenuation. Wall motion does appear to be intact in this affected area. 4. Normal ejection fraction of 82%, end-diastolic volume 84. End systolic volume of 18. Normal wall motion. cc: Trev iMreles MD
--- NOTE | 2017-06-15 16:26 | PROGRESS NOTE ---
DATE: 06/15/2017 SUBJECTIVE: Ms. Kline has not had any more complaints of chest pain. She says her abdominal pain is much improved, essentially resolved since yesterday. PHYSICAL EXAMINATION: Vital signs: She is afebrile. Heart rate 64, blood pressure 132/54. General: She is in no acute distress. Cardiovascular: She is in a regular rate and rhythm. She has no obvious murmurs. She has no S3. extremities: She has no lower extremity edema. Chest: Clear bilaterally. She has no increased work of breathing. Abdomen: Soft, nontender, nondistended. No obvious organomegaly. PERTINENT DATA: Sodium is 139, potassium 4.1, BUN 26, creatinine 4.7. ASSESSMENT: 1. Chest pain. 2. Possible ileus, based on abdominal x-ray. PLAN: We will ensure that her primary care physician sees the results of the abdominal x-ray. Currently she is n.p.o. Symptoms seem to be much improved. cc: MD Rick Lowe MD
[2017-06-15] MEDS ORDERED: XANAX PO SCH (21:00)
[2017-06-15] MEDS: LIPITOR PO SCH (21:33)
[2017-06-15] MEDS: NEURONTIN PO SCH (21:33)
[2017-06-15] MEDS: XALATAN 0.005% OPH SOLN RIGHT EYE SCH (21:36)
[2017-06-16 06:23] LABS: ALBUMIN 3.8 g/dL (3.5-5.0); CALCIUM 8.6 mg/dL (8.8-10.2); POTASSIUM 3.9 mmol/L (3.5-5.1)
[2017-06-16] MEDS: HUMULIN R SUBQ SCH ×2 (06:28→15:11)
[2017-06-16] MEDS ORDERED: NS 2,000 ML MISC PRN (07:14)
[2017-06-16] MEDS ORDERED: HEPARIN IV PRN (07:14)
[2017-06-16] MEDS ORDERED: TIGHT: 0.2 ML/HR MISC PRN (07:14)
[2017-06-16] MEDS ORDERED: HEPARIN ONE (08:27)
[2017-06-16] MEDS ORDERED: NS 2,000 ML ONE (08:27)
[2017-06-16] MEDS ORDERED: TOPROL XL PO SCH (09:00)
[2017-06-16 13:18] VITALS: BP 161/48
[2017-06-16] MEDS: PHOSLO PO SCH ×2 (15:11→15:13)
[2017-06-16] MEDS: APRESOLINE PO SCH ×2 (15:11→15:14)
[2017-06-16] MEDS: NORVASC PO SCH (15:13)
[2017-06-16] MEDS: PATIENT'S OWN MED OPH SCH (15:14)
[2017-06-16] MEDS: CELEXA PO SCH (15:14)
--- NOTE | 2017-06-16 15:37 | PROGRESS NOTE ---
DATE: 06/16/2017 TIME SEEN: 0845. SUBJECTIVE: Ms. Kline is resting quietly in bed. The head of the bed is elevated. She denies any chest pain. No increased work of breathing. She states that she had some abdominal discomfort yesterday. It is improved today. She is attempting to sit up to eat her breakfast. OBJECTIVE: Her most recent vital signs: Her temperature is 98.7 degrees, blood pressure 168/51, heart rate 60, respirations 14. She is on 2 L nasal cannula. Last recorded saturation 97%. She has had 300 in. She has had 400 Out in need of dialysis today. LABORATORY DATA: Sodium 139, potassium 3.9, chloride 97, CO2 of 24. BUN 40. Creatinine 6.2, glucose 79, anion gap 18. Calcium 8.6, phosphorus 5.9, albumin 3.8, white count 6.46. Hemoglobin 11, hematocrit 34.0. Platelet count 259,000. PHYSICAL EXAMINATION: This is a 76-year-old -[place] female. She is sitting up in bed. She is attempting to eat her breakfast. She appears in no acute distress. Skin is warm and dry. HEENT: Normocephalic, atraumatic. Conjunctivae pale. She has GLADYS. Mucous membranes are moist. Neck is supple. Trachea in midline. No JVD. Cardiovascular: Regular rate and rhythm. She has a soft systolic murmur. No gallop appreciated. Lungs are clear to auscultation anteriorly. Equal excursion. She is currently on O2. Abdomen is round, soft, nontender to light palpation. Positive bowel sounds. Genitourinary: Not inspected. Minimal void with dialysis assist. Extremities: Have no edema. No clubbing or cyanosis. Neurological: She is alert to person and to place. ASSESSMENT AND PLAN: 1. End-stage renal disease. Patient is due for her routine dialysis treatment today. We will place her on a 3 K bath. She is to dialyze for 3.5 hours. We will pull patient to her dry weight. 2. Electrolytes and acid-base balance. These currently remain stable. 3. Anemia. This is close to target. 4. Altered mental status. This has improved. 5. Fluid volume overload. Again, with assistance with dialysis. 6. Complaints of chest pain. 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 I would like to thank you for allowing us to follow with this patient. Dictated by SHAHIDA Young for David Espinoza MD Data reviewed, discussed with Julio Cesar Swartz on 06/16/17. I agree with the above assessment and plan of care. cc: SHAHIDA Young MD Adnan A. Seljuki, MD [facility]
--- NOTE | 2017-06-17 04:20 | DISCHARGE SUMMARY ---
ADMISSION DATE: 06/13/2017 DISCHARGE DATE: 06/16/2017 DISCHARGE DIAGNOSES: 1. Chest pain and shortness of breath that appear to be multifactorial including advanced age and generalized deconditioning. 2. Ileus that has been nonspecific and has resolved. 3. Hypertension. 4. End-stage renal disease. 5. Anemia secondary to chronic kidney disease. 6. Type 2 diabetes mellitus. HOSPITAL COURSE: Ms. Kline is a 76-year-old female who has a history of end-stage renal disease and has been on hemodialysis 3 times a week. Presented to the emergency department due to patient having chest pain and shortness of breath. She was noted to have hypertension and was given some fluids after which her blood pressure improved. She was admitted to the hospital for further evaluation and care. She did have a CT scan of the chest that showed atelectasis and/or fibrosis in the lung bases but no pneumonia. Consultation with Dr. Trev Mireles was obtained, who did a Lexiscan that has been low risk for myocardial ischemia. Consultation with Dr. Espinoza was also obtained and patient has been having inpatient hemodialysis. Abdominal x-rays were performed on June 14 that showed ileus versus partial small bowel obstruction but patient has clinically improved and she has been having bowel movements. She did have some abdominal discomfort but that has also improved. She is having good bowel movements and has not been having any abdominal issues anymore. She also has been diagnosed with type 2 diabetes mellitus for which we gave her lispro insulin as per sliding scale here at the hospital. Her blood pressure has been stable and we have added metoprolol ER 50 mg daily to her medication regimen. Since patient's condition has improved, we are going to let her go home today. DISCHARGE MEDICATIONS: 1. Amlodipine 5 mg orally once daily. 2. Metoprolol ER 50 mg orally once daily. 3. Atorvastatin 10 mg orally once daily. 4. Gabapentin 100 mg orally once daily at bedtime. 5. Hydralazine 50 mg orally 3 times a day. 6. Alprazolam 0.5 mg orally once daily at bedtime. 7. Citalopram 20 mg orally once daily. 8. Calcium acetate 667 mg 3 times a day with meals as directed. 9. Latanoprost eyedrops as directed. FOLLOWUP: She will follow up with me at the office in approximately 1 week and follow up with Dr. Trev Mireles in approximately 2 weeks. CONDITION: Stable. DISPOSITION: Home. TIME SPENT: A total of more than 40 minutes was spent taking care of this patient during the discharge process today. cc: Rick Anderson MD
--- NOTE | 2017-06-30 02:38 | PROVIDER DOCUMENTATION ---
This chart was entered by Gayb Laws Scribe, acting as scribe for Sea Saini MD. HPI-General Adult - General Chief Complaint: B/P Problems Stated Complaint: PACEMAKER ISSUSES Time Seen by Provider: 06/13/17 00:25 Source: patient Allergies/Adverse Reactions: Patient Allergies Allergy/AdvReac Type Severity Reaction Status Date / Time No Known Allergies Allergy Verified 05/31/17 18:41 Home Medications: Home Medication List Medication Instructions Recorded Confirmed Last Taken Type ATORVAstatin [Lipitor] 10 mg PO QHS 05/20/13 06/13/17 12/07/16 History Amlodipine [Norvasc] 5 mg PO DAILY 05/20/13 06/13/17 12/07/16 History Latanoprost 2.5 ml OP QHS 05/20/13 06/13/17 12/07/16 History Calcium Acetate 667 mg PO TID 12/25/13 06/13/17 12/07/16 History Alprazolam 0.5 mg PO QHS 06/13/17 06/13/17 Unknown History Brinzolamide/Brimonidine Tart 8 ml OP DAILY 06/13/17 06/13/17 Unknown History [Simbrinza 1%-0.2% Eye Drops] Citalopram [Celexa] 20 mg PO DAILY 06/13/17 06/13/17 Unknown History Gabapentin [Neurontin] 100 mg PO QHS 06/13/17 06/13/17 06/12/17 History Hydralazine [Apresoline] 50 mg PO TID 06/13/17 06/13/17 Unknown History Metoprolol Succinate E.r. [Toprol 50 mg PO DAILY #30 tablet 06/16/17 Unknown Rx Xl] - History of Present Illness -Gen Adult Nature of Presenting Problems: 76 year-old female with history of renal failure presents to the ER after having chest pain at her home. She has a pacemaker. She is no longer in chest pain upon arrival, but her heart rate has been very high while in route to the ER. She has dialysis on Thursday, and Saturdays and last dialyzed on . She denies any chest pain upon arrival but indicates she is having shortness of breath. She has a left sided facial droop that is not new. No other symptoms are presented at this time. Patient's daughter lives next door. She had gone over to check on her mother this evening. She found her sitting in a chair and did not appear well. She called 911 for assistance. The patient has complained of chest pain for 2 days and has been short or breath as well. Location of Pain/Injury: reports: none Pain Radiation: reports: no radiation Quality of Pain: reports: none Severity: reports: moderate Onset/Duration: reports: 1-3 hours ago Timing: reports: still present Associated Symptoms: reports: chest pain Similar Symptoms Previously?: No Recently seen or treated by another doctor?: Yes Review of Systems - Adult - REVIEW OF SYSTEMS - ADULT ROS:: ROS per family Constitutional: reports: no symptoms reported, see HPI Eyes: reports: no symptoms reported, see HPI Ears, Nose, Mouth & Throat: reports: no symptoms reported, see HPI Cardiovascular: reports: see HPI, chest pain Respiratory: reports: see HPI, shortness of breath Gastrointestinal: reports: no symptoms reported, see HPI Genitourinary: reports: no symptoms reported, see HPI Musculoskeletal: reports: no symptoms reported, see HPI Integumentary: reports: no symptoms reported, see HPI Neurological: reports: no symptoms reported, see HPI Psychiatric: reports: no symptoms reported, see HPI Endocrine: reports: see HPI All Other Systems: Reviewed and Negative Past History - Adult - PAST MEDICAL HISTORY-ADULT Review of Records: reports: Old Records Reviewed, Nursing Assessment Review, Medications Reviewed, Social history reviewed & non-contributory. 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.) Psychiatric: reports: denies history Endocrine/Immune: reports: denies history, Diabetes Other Conditions: reports: cataract/glaucoma (glaucoma) - PRIOR SURGERIES/PROCEDURES Surgical/Procedure History: reports: EGD, pacemaker, indwelling device (fistula in the left arm), joint replacement (total hip) - IMMUNIZATION STATUS Childhood Immunizations: UTD Flu Vaccine: NUTD - FAMILY HISTORY Family History: reviewed, not pertinent Physical Exam-General - PHYSICAL EXAM-ADULT Initial Vital Signs Reviewed: Yes - CONSTITUTIONAL General Appearance: alert, no apparent distress - EYES Eyes: PERRL/EOMI - HEAD, EARS, NOSE, MOUTH & THROAT HENMT: normocephalic/atraumatic, moist mucous membranes - NECK Neck: non-tender, full range of motion, supple - RESPIRATORY Respiratory: chest non-tender, lungs clear, other (Palpable device left upper chest.) - CARDIOVASCULAR Cardiovascular: normal peripheral pulses, tachycardia, other (Heart todes are distant and muffled.) - GASTROINTESTINAL (ABDOMEN) Abdominal Exam: normal bowel sounds, non tender, soft - LYMPHATIC Lymphatic: no adenopathy - MUSCULOSKELETAL Back Exam: normal inspection, no CVA tenderness Extremity: normal range of motion, non-tender, pedal edema, other (Palpable shunt left upper arm with palpable trill.) - SKIN Integumentary: normal color, normal turgor, warm/dry - NEUROLOGIC Neurologic: tag and label cutter II-XII nml as tested, grossly normal, no motor/sensory deficits - PSYCHIATRIC Psych/Mental Status: normal mood/affect, normal thought content, normal thought process, oriented x 3 Progress - PLAN OF CARE/RESULTS Progress/Plan/Lab Results: Vital Signs - 8 hr 06/12/17 23:45 06/12/17 23:56 Temperature 98.1 F Pulse Rate 74 73 Respiratory Rate 20 16 Blood Pressure 167/71 167/61 O2 Sat by Pulse Oximetry 95 98 Laboratory Results - last 24 hr 06/12/17 00:00 WBC 5.92 RBC 3.65 L Hgb 10.4 L Hct 32.1 L MCV 87.9 MCH 28.5 MCHC 32.4 L RDW Std Deviation 16.0 H Plt Count 244 MPV 9.5 Immature Gran % (Auto) 0.3 Neut % (Auto) 59.8 Lymph % (Auto) 26.9 Boyd % (Auto) 8.3 Eos % (Auto) 3.9 Baso % (Auto) 0.8 Immature Gran # (Auto) 0.02 Neut # (Auto) 3.54 Lymph # (Auto) 1.59 Boyd # (Auto) 0.49 Eos # (Auto) 0.23 Baso # (Auto) 0.05 Orders Category Date Time Status Cardiac Monitoring DIRECTED Care 06/12/17 23:58 Active Saline Loc NOW Care 06/12/17 23:58 Active CHEST-PORTABLE [RAD] Stat Exams 06/13/17 00:00 Taken CBC WITH ELECTRONIC DIFF [HEME] Stat Lab 06/12/17 00:00 Results CK PROFILE [SP CHEM] Stat Lab 06/12/17 00:00 Received COMPREHENSIVE METABOLIC PANEL [CHEM] Stat Lab 06/12/17 00:00 Received LACTATE, PLASMA [CHEM] Stat Lab 06/13/17 00:12 Received MAGNESIUM [CHEM] Stat Lab 06/12/17 00:00 Received PRO B-NATRIURETIC PEPTIDE Stat Lab 06/12/17 00:00 Received PROTIME WITH INR [COAG] Stat Lab 06/12/17 00:00 Received PTT [COAG] Stat Lab 06/12/17 00:00 Received TROPONIN T Stat Lab 06/12/17 00:00 Received EKG [EKG] Stat Ther 06/12/17 23:58 Ordered Result Diagrams: 06/14/17 04:57 06/16/17 04:40 - EKG 1 Time of EKG reading by physician:: 23:47 EKG Read and Signed by:: Sea Saini EKG Interpretation (*Must complete 3 of following elements*): Abnormal Rate: 73 Rhythm: Sinus rhythme with 1st degree AV block. Hildreth: left (prt axis 47 -40 38.) VA Interval: normal (pr interval 222 ms.) Comments: Possible L atrial enlargement. L ventricular hypertrophy. - XRAY 1 XRAY Study: Chest Impression: Abnormal Departure - Departure Date of Disposition Decision: 06/13/17 Time of Disposition Decision: 23:00 DIAGNOSIS: Chest pain Qualifiers: Chest pain type: unspecified Qualified Code(s): R07.9 - Chest pain, unspecified Disposition: ADMITTED INPATIENT 09 Certified Medical Emergency: Emergent Condition: Stable - Critical Care Note This patient required my direct & personal management of CC.: No Attestation - Physician/ CHANDRA Attestation Patient care was provided by Advanced Practice Provider:: No The physician spent face to face time with patient:: Yes Advanced Practice Provider documentation review:: Supervising physician onsite and consulted in the evaluation and care of this patient. The physician did have a face to face encounter with the patient. This chart was documented by the indicated scribe, (Gaby Laws Scribe) and accurately reflects the services I performed and decisions made by me, Sea aSini MD, as attested by the provider's signature.
== END 2017-06-16 16:50 | disposition home or self-care (01) ==
LOC: ED 23:51 → EDIPHOLD 06-13 02:36 → SUATTDRO 06-13 02:36 → 3S 06-13 15:43
PROVIDERS: ADMIT Internal Medicine; ATTEND Internal Medicine

== ENCOUNTER 2018-11-02 06:16 | Inpatient (IN) ==
--- NOTE | 2018-11-01 11:15 | EKG Report ---
Test Performed on : 11/01/2018 10:55:27 AM Test Reason : PAT Blood Pressure : / mmHG Vent. Rate : 060 BPM Atrial Rate : 060 BPM P-R Int : 242 ms QRS Dur : 102 ms QT Int : 452 ms P-R-T Axes : 074 -28 034 degrees QTc Int : 452 ms Atrial-paced rhythm with prolonged AV conduction Moderate voltage criteria for LVH, may be normal variant Abnormal ECG When compared with ECG of 04-FEB-2018 11:24, Nonspecific T wave abnormality no longer evident in Lateral leads QT has shortened Confirmed by Wilmer Soria MD ([id number]) on 11/01/2018 3:57:36 PM
[2018-11-01 12:05] LABS: HEMATOCRIT 30.5 % (37.0-47.0); HEMOGLOBIN 9.4 g/dL (12.0-16.0); MCH 27.2 PG (27-31); MCHC 30.8 g/dL (33-37); MCV 88.4 FL (81-99); RBC 3.45 XMIL (4.2-5.4); RDW 17.3 % (11.5-14.5); WBC 17.59 X1000 (4.8-10.8)
[2018-11-01 12:41] LABS: CALCIUM 10.9 mg/dL (8.8-10.2); CREATININE 3.5 mg/dL (0.5-0.9); POTASSIUM 3.6 mmol/L (3.5-5.1)
[2018-11-02] MEDS ORDERED: KEFZOL 1 GM/D5W 1 GM/50 ML IVPB ONE (06:50)
[2018-11-02] MEDS ORDERED: 1/2 NS 500 ML ONE (06:50)
[2018-11-02] MEDS ORDERED: DIPRIVAN 1% ONE (07:02)
[2018-11-02] MEDS ORDERED: XYLOCAINE-MPF 2% ONE (07:02)
[2018-11-02] MEDS ORDERED: ZOFRAN ONE (08:18)
[2018-11-02] MEDS ORDERED: LABETALOL ONE (08:52)
[2018-11-02] MEDS: APRESOLINE ONE ×2 (08:52→08:56)
--- NOTE | 2018-11-02 09:07 | OPERATIVE NOTE ---
PROCEDURE DATE: 11/02/2018 NAME OF PROCEDURE: Amputation of left 2nd toe with debridement of surrounding tissue. PREOPERATIVE DIAGNOSIS: Gangrene of the left toe. POSTOPERATIVE DIAGNOSIS: Gangrene of the left toe with foot infection. DESCRIPTION OF PROCEDURE: After satisfactory general anesthesia was achieved, the left foot was prepped and draped in a sterile fashion. We made a circular incision around the base of the left second toe. We extended the incision anteriorly past the metatarsophalangeal joint. We then amputated the toe through the metatarsophalangeal joint. The soft tissue was necrotic and purulent. We excised the underlying tendons. We debrided the tissue both anterior and posterior to the metatarsal. We took a rongeur and removed the distal metatarsal. We cultured the wound. Because of the purulent necrotic tissue, we decided to leave it open and pack it with iodoform gauze. We copiously irrigated. Hemostasis was satisfactory. We did pack it with half-inch iodoform gauze and covered it with sterile gauze and a Kerlix. She tolerated it well and was sent to the recovery room in satisfactory condition. cc: Sea Rodas MD
[2018-11-02] MEDS ORDERED: ZOFRAN IV PRN (09:43)
[2018-11-02] MEDS ORDERED: NORCO-7.5 PO PRN (09:43)
[2018-11-02] MEDS ORDERED: HEPARIN IV PRN (10:02)
[2018-11-02] MEDS ORDERED: NS 2,000 ML MISC PRN (10:02)
[2018-11-02] MEDS ORDERED: TIGHT: 0.2 ML/HR FOR DIALYSIS MISC PRN (10:02)
[2018-11-02 11:17] LABS: ALBUMIN 2.3 g/dL (3.5-5.0); CALCIUM 10.6 mg/dL (8.8-10.2); CREATININE 4.3 mg/dL (0.5-0.9); PHOSPHORUS 2.2 mg/dL (2.7-4.5); POTASSIUM 4.2 mmol/L (3.5-5.1)
--- NOTE | 2018-11-02 14:58 | NEPHROLOGY CONSULTATION ---
DATE: 11/02/2018 REASON FOR ADMISSION: Amputation of left second toe on the left foot. REASON FOR CONSULT: End-stage renal disease for dialysis. CONSULTING PHYSICIAN: Dr. Rodas. HISTORY OF PRESENT ILLNESS: Ms. Kline has had ongoing difficulties with her left great toe due to its nonhealing status. It was felt best that it be removed. She came in today for removal. She has been to surgery already this a.m. for amputation of the left second toe on the left. She has been recovered and has been brought to the floor. She remains sedated per earlier anesthesia. There is no family at the bedside. PAST MEDICAL HISTORY: End-stage renal disease, patient is dialyzed on Thursday, , Thursday at the [facility], hypertension, diabetes mellitus type 2, bilateral diabetic upper extremities, cardiac arrhythmias. PAST SURGICAL HISTORY: Pacemaker, bilateral hip replacement, left AV graft, previous tunnel dialysis catheters, amputation of second toe on the left foot today. SOCIAL HISTORY: She lives with her family. No tobacco, alcohol, or illicit drug use. FAMILY HISTORY: Positive for diabetes and hypertension. No end-stage renal disease. ALLERGIES: No known drug allergies noted. HOME MEDICATIONS: Xanax, Lipitor, Simbrinza, calcium acetate, Celexa, Neurontin , Apresoline, latanoprost, and Toprol. REVIEW OF SYSTEMS: Unable to obtain secondary to patient's sedated state. Most information obtained from information from our chart and previous admissions. VITAL SIGNS: Temperature 97.3 degrees, blood pressure 173/81, heart rate 81, respirations 16. She is currently on room air. Last recorded saturation 95%. She has had 150 in. She has only had 3 mL out. LABS: Sodium 135, potassium 4.2, chloride 97, CO2 24, BUN 31, creatinine 4.3, glucose 99, anion gap of 14, calcium 10.6, phosphorus 2.2, albumin 2.3. Previous hemoglobin 9.4 on the 4th. PHYSICAL EXAMINATION: General: This is a 77-year-old female. She appears frail, in no acute distress. Skin: Warm and dry. HEENT: Normocephalic, atraumatic. Conjunctivae pale. Mucous membranes are dry. Neck: Supple. Trachea midline. No evidence of JVD. She does appear to have a slight droop noted to the left side of the face , into the neck region from a previous CVA. Cardiovascular: She is regular rate and rhythm. Systolic murmur is present. Lungs: Clear to auscultation bilaterally. Equal excursion. On O2. Abdomen: Soft, nontender. Positive bowel sounds. Genitourinary: Not inspected. Minimal void with dialysis assist. Extremities: No edema. No clubbing or cyanosis. AV fistula to the left upper extremity with good palpable thrill. Integumentary: Skin is warm and dry. She has a dressing noted to her left foot. Some shadow drainage noted. Neurological: Alert to person. ASSESSMENT AND PLAN: 1. Chronic kidney disease stage 5D. Patient is due for her routine dialysis treatment today. We will plan for dialysis, 2 K bath. She is to dialyze for 3.5 hours. We will hold heparin. Pull patient to her outpatient dry weight. 2. Electrolytes, acid-base balance. To be addressed on dialysis. 3. Anemia. This remains low but stable. 4. 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 Followed by Dr. Rodas. I would like to thank you for allowing us to follow with this patient. Dictated by SHAHIDA Young for David Espinoza MD Face to face encounter, data reviewed, discussed with Julio Cesar Swartz on 11/03/18. I agree with the above assessment and plan of care. cc: SHAHIDA Young MD Robert C. Walker, MD [facility]ITAL[facility]anda
[2018-11-02] MEDS: ASPIRIN PO SCH (20:05)
[2018-11-02] MEDS: APRESOLINE PO SCH ×2 (20:05→20:06)
[2018-11-02] MEDS: ZYLOPRIM PO SCH (20:06)
[2018-11-02] MEDS: CELEXA PO SCH (20:06)
[2018-11-02] MEDS: PATIENT'S OWN MED BOTH EYES SCH (20:07)
[2018-11-02] MEDS: PHOSLO PO SCH (20:07)
[2018-11-02] MEDS: TOPROL XL PO SCH (20:07)
[2018-11-02] MEDS: LIPITOR PO SCH ×2 (22:11→22:13)
[2018-11-02] MEDS: XALATAN 0.005% OPH SOLN RIGHT EYE SCH (22:11)
[2018-11-02] MEDS: XANAX PO SCH (22:14)
[2018-11-03 07:18] LABS: BASO# 0.01 X1000 (0.0-0.2); BASO% 0.1 % (0.0-0.8); EOS# 0.15 X1000 (0.0-0.7); EOS% 1.1 % (0.0-10.0); HEMATOCRIT 27.8 % (37.0-47.0); HEMOGLOBIN 8.7 g/dL (12.0-16.0); LYMPH# 1.22 X1000 (1.2-3.4); LYMPH% 9.1 % (20.5-51.1); MCH 27.5 PG (27-31); MCHC 31.3 g/dL (33-37); MONO# 0.97 X1000 (0.11-0.59); MONO% 7.3 % (1.7-9.3); MPV 9.5 FL (7.4-10.4); NEUT# 10.99 X1000 (1.4-6.5); NEUT% 82.4 % (42.2-75.2); PLT 278 X1000 (130-400); RBC 3.16 XMIL (4.2-5.4); RDW 17.3 % (11.5-14.5); WBC 13.34 X1000 (4.8-10.8)
--- NOTE | 2018-11-03 07:59 | NEPHROLOGY PROGRESS NOTE ---
DATE: 11/03/2018 TIME SEEN: 0635. SUBJECTIVE: Ms. Kline is resting quietly in bed. She has no complaints. OBJECTIVE: Vital Signs: Her most recent vital signs, temperature 97.6 degrees , blood pressure 170/62, heart rate 59, respirations 16. She is currently on room air. Her last recorded saturation was 96%. She has had 372 in. She has had 0 recorded out. Laboratory Data: Her last potassium was 4.2. Previous hemoglobin 9.4. CBC pending this a.m. Physical Examination: General: This is a 77-year-old, female resting quietly in bed. No acute distress. Skin: Warm and dry. HEENT: Normocephalic, atraumatic. Conjunctivae pale. Mucous membranes are dry. Neck: Supple. Trachea midline. No JVD. Cardiovascular: She does have a systolic murmur present. S1, S2, with regular rate. Lungs: Clear to auscultation bilaterally. Equal excursion, on O2. Abdomen: Soft, nontender. Positive bowel sounds. Genitourinary: Not inspected. Minimal void with dialysis assist. Extremities : Patient has a dressing to her left foot. This is dry and intact. Again, some shadow drainage present. AV fistula to the left upper extremity, positive thrill. Dressing was removed. No edema present. Neurological: The patient does continue with a slight droop to her left side of her face and neck, and slight deficit to her left arm. ASSESSMENT AND PLAN: 1. Chronic kidney disease stage 5D. The patient is due for her routine dialysis treatment in the morning. No indications for intervention today. 2. Electrolytes. Her last potassium was 4.2. We will check electrolytes prior to her dialysis treatment in the morning. 3. Acid-base balance. This was stable again with correction on dialysis. 4. Anemia. This has been low but stable. 5. Status postoperative day #1, amputation of second toe on the left, followed by Dr. Rodas and primary care. I would like to thank you for allowing us to follow with this patient. Dictated by SHAHIDA Young for David Espinoza MD Face to face encounter, data reviewed, discussed with Julio Cesar Swartz on 11/03/18. I agree with the above assessment and plan of care. cc: SHAHIDA Young MD Robert C. Walker, MD MTDD
[2018-11-03] MEDS ORDERED: CALMOSEPTINE OINTMENT TOP PRN ×2 (08:22)
[2018-11-03 08:32] LABS: URINE SOURCE CATH
[2018-11-03] MEDS: APRESOLINE PO SCH ×3 (08:43→17:53)
[2018-11-03] MEDS: PHOSLO PO SCH (08:43)
[2018-11-03] MEDS: ZYLOPRIM PO SCH (08:43)
[2018-11-03] MEDS: ASPIRIN PO SCH (08:43)
[2018-11-03] MEDS: TOPROL XL PO SCH (08:44)
[2018-11-03] MEDS: PERIDEX MT SCH ×2 (08:44→22:16)
[2018-11-03] MEDS: CELEXA PO SCH (08:44)
[2018-11-03 09:22] LABS: BILIRUBIN URINE NEGATIVE (NEGATIVE); BLOOD URINE MODERATE (NEGATIVE); COLOR BROWN; GLUCOSE URINE NEGATIVE (NEGATIVE); KETONE URINE NEGATIVE (NEGATIVE); LEUKOCYTES URINE LARGE (NEGATIVE); NITRITE URINE NEGATIVE (NEGATIVE); PH URINE 7.5; PROTEIN URINE 300 mg/dL (NEGATIVE); TURBIDITY URINE TURBID (CLEAR); UROBILINOGEN URINE NORMAL (NORMAL)
[2018-11-03 09:38] LABS: URINE WBC TNTC /HPF (<10)
[2018-11-03] MEDS: CALMOSEPTINE OINTMENT TOP SCH ×3 (11:01→22:16)
[2018-11-03] MEDS ORDERED: VANCOMYCIN 1 GM/NS 1 GM/250 ML IVPB IV ONE (12:47)
[2018-11-03] MEDS: PATIENT'S OWN MED BOTH EYES SCH (15:08)
[2018-11-03] MEDS: XALATAN 0.005% OPH SOLN RIGHT EYE SCH (22:16)
[2018-11-03] MEDS: LIPITOR PO SCH (22:16)
--- NOTE | 2018-11-03 23:45 | GENERAL SURGERY PROGRESS NOTE ---
DATE: 11/03/2018 Her wound is inspected. It looks quite satisfactory. No purulence is noted. Her white count today was down to 13,000. We will give her vancomycin 1 dose after each dialysis. Hopefully, we can discharge her home tomorrow, and then allow them to give her vancomycin after dialysis. I spoke with her family. They understand and agree. cc: Sea Rodas MD
[2018-11-04] MEDS ORDERED: HEPARIN IV PRN (05:37)
[2018-11-04] MEDS ORDERED: NS 2,000 ML MISC PRN (05:37)
[2018-11-04] MEDS ORDERED: TIGHT: 0.2 ML/HR FOR DIALYSIS MISC PRN (05:37)
[2018-11-04] MEDS: XANAX PO SCH (05:55)
[2018-11-04 07:40] LABS: ALBUMIN 2.3 g/dL (3.5-5.0); CALCIUM 9.1 mg/dL (8.8-10.2); CREATININE 3.1 mg/dL (0.5-0.9); PHOSPHORUS 2.4 mg/dL (2.7-4.5); POTASSIUM 3.4 mmol/L (3.5-5.1)
[2018-11-04] MEDS: CALMOSEPTINE OINTMENT TOP SCH (08:50)
--- NOTE | 2018-11-04 08:55 | GENERAL SURGERY PROGRESS NOTE ---
DATE: 11/04/2018 TIME SEEN: 0825 hours in the morning. SUBJECTIVE: Ms. Kline's wound looks about the same. T-max is 99.4 degrees. Hemodynamics are okay. Her culture shows gram-positive cocci. In view of her improvement in white count yesterday and the identification of her having gram-positive cocci, I think we can treat her at home with local wound care by home health and IV vancomycin after each dialysis. I have communicated that with Dr. Espinoza, who will arrange it for the next 2 weeks. I will have her return to the office in 2 weeks. cc: Sea Rodas MD
[2018-11-04] MEDS: CELEXA PO SCH (09:09)
[2018-11-04] MEDS: TOPROL XL PO SCH (09:09)
[2018-11-04] MEDS: ASPIRIN PO SCH (09:09)
[2018-11-04] MEDS: APRESOLINE PO SCH (09:09)
[2018-11-04] MEDS: PHOSLO PO SCH (09:09)
[2018-11-04] MEDS: ZYLOPRIM PO SCH (09:09)
[2018-11-04] MEDS ORDERED: VANCOMYCIN 1 GM/NS 1 GM/250 ML IVPB IV SCH (10:30)
--- NOTE | 2018-11-04 11:24 | NEPHROLOGY PROGRESS NOTE ---
DATE: 11/04/2018 TIME SEEN: 0712. SUBJECTIVE: Ms. Kline is resting quietly in bed. Her head of the bed is elevated. She states that she is hurting today. OBJECTIVE: Her most recent vital signs: Temperature 99.4 degrees, blood pressure 140/49, heart rate 62, respirations 16. She is on room air. Last recorded saturation 100%. She has had 700 in. She has had 25 mL out with need for dialysis. Labs: Sodium 138, potassium 3.4, chloride 97, CO2 27, BUN 22, creatinine 3.1, glucose 96, anion gap of 14, calcium 9.1, phosphorus 2.4, albumin 2.3. Previous hemoglobin 8.7. General: This is a 77-year-old female. She is resting quietly in bed. She appears in modest distress secondary to leg pain. Skin: Warm and dry. HEENT: Normocephalic, atraumatic. Conjunctivae pale. She has GLADYS. Mucous membranes are dry. Neck: Supple. Trachea midline. No JVD. Cardiovascular: She is regular rate and rhythm. S4 is present. Lungs: Clear to auscultation anteriorly equal excursion on room air. Abdomen: Soft, nontender, positive bowel sounds. Genitourinary: Not inspected. Minimal void with dialysis assist. Extremities: Have no edema. No clubbing or cyanosis. She continues with dressing to her left foot. We have inspected her left hip. This does not appear to be any form of calciphylaxis, though it is hardened more than likely secondary to bed decubiti. ASSESSMENT AND PLAN: 1. Chronic kidney disease stage 5D. The patient is due for her routine dialysis treatment today. We will place her on a 3 K bath. She is to dialyze for 3.5 hours. We will attempt to pull her to her outpatient dry weight. 2. Electrolytes and acid-base balance. These are stable. 3. Anemia. This is low but stable. 4. Amputation of left great toe, postoperative day #2, followed by Dr. Rodas. They have identified the wound to be gram-positive cocci. We will plan for vancomycin after dialysis today and to be given for several weeks after that, per Dr. Rodas's orders at the outpatient clinic. I would like to thank you for allowing us to follow with this patient. Dictated by SHAHIDA Young for David Espinoza MD [id number] encounter. They reviewed and discussed with Gurinder Swartz. I agree with the above assessment and plan of care. cc: SHAHIDA Young MD Robert C. Walker, MD [facility]anda
[2018-11-04 14:22] VITALS: BP 148/46
[2018-11-04] MEDS ORDERED: VANCOMYCIN 1 GM/NS 1 GM/250 ML IVPB IV ONE (17:00)
== END 2018-11-04 17:10 | disposition home health service (06) | DRG 255 ==
LOC: OR 06:16 → 4N 06:16 → OBSVTOIN 10:58
PROVIDERS: ADMIT Surgery; ATTEND Surgery
CPT/HCPCS: 80048; 80069; 81001; 82948; 84134; 85025; 85027; 87070; 87075; 87077; 87088; 87186; 87205; 88305; 93005; 93010; 94761; A9270; J0360; J0690; J1644; J2405; J3370; J7030; XXXXX

== ENCOUNTER 2018-12-21 06:05 | Day surgery (SDC) ==
--- NOTE | 2018-12-15 16:39 | EKG Report ---
Test Performed on : 12/15/2018 4:31:39 PM Test Reason : PAT Blood Pressure : / mmHG Vent. Rate : 063 BPM Atrial Rate : 063 BPM P-R Int : 278 ms QRS Dur : 096 ms QT Int : 426 ms P-R-T Axes : 102 -38 018 degrees QTc Int : 435 ms Atrial-paced rhythm with prolonged AV conduction Left axis deviation Pulmonary disease pattern Voltage criteria for left ventricular hypertrophy Abnormal ECG When compared with ECG of 01-NOV-2018 10:55, No significant change was found Unconfirmed Result
[2018-12-21] MEDS ORDERED: XYLOCAINE-MPF 2% ONE (06:35)
[2018-12-21] MEDS ORDERED: KEFZOL 1 GM/D5W 1 GM/50 ML IVPB ONE (06:37)
[2018-12-21] MEDS ORDERED: 1/2 NS 500 ML ONE (06:37)
[2018-12-21] MEDS ORDERED: DIPRIVAN 1% ONE (06:37)
[2018-12-21 06:49] LABS: HEMATOCRIT 37.4 % (37.0-47.0); HEMOGLOBIN 11.4 g/dL (12.0-16.0); MCH 28.3 PG (27-31); MCHC 30.5 g/dL (33-37); MCV 92.8 FL (81-99); MPV 9.1 FL (7.4-10.4); RBC 4.03 XMIL (4.2-5.4); RDW 18.6 % (11.5-14.5); WBC 7.93 X1000 (4.8-10.8)
[2018-12-21 07:14] LABS: CALCIUM 10.7 mg/dL (8.8-10.2); CREATININE 4.6 mg/dL (0.5-0.9); POTASSIUM 4.4 mmol/L (3.5-5.1)
[2018-12-21] MEDS ORDERED: D50W SYRINGE ONE (07:42)
[2018-12-21] MEDS ORDERED: EPHEDRINE ONE (07:46)
[2018-12-21] MEDS ORDERED: D5 1/2 NS 1,000 ML ONE (08:21)
[2018-12-21] MEDS: DEMEROL ONE ×2 (08:25→08:31)
--- NOTE | 2018-12-21 08:31 | OPERATIVE NOTE ---
PROCEDURE DATE: 12/21/2018 PROCEDURE PERFORMED: Left transmetatarsal amputation. SURGEON: Sea Rodas MD. PRINT SUPPORT SPECIALIST: Mary. PREOPERATIVE DIAGNOSIS: Ischemic gangrene toes, left foot. POSTOPERATIVE DIAGNOSIS: Ischemic gangrene toes, left foot. DESCRIPTION OF PROCEDURE: Satisfactory general anesthesia was achieved. The left foot was prepped and draped in a sterile fashion. We made a fishmouth genaro on the dorsum and plantar aspect of the left foot. We incised the skin and carried our incision through the subcutaneous tissue, through the tendinous tissue down to the metatarsal bones. We did this both on the dorsal aspect and the plantar aspect. Some bleeding was present thankfully. We raised the periosteum off the metatarsals and used a bone biter to transect each metatarsal. The distal toes were handed off. We then used a rongeur to rongeur back the metatarsals until we could fold the skin together reasonably without tension. Some of the soft tissue was resected as well, allowing closure of the fishmouth. After we had dissected the bone back and resected the soft tissue, we then copiously irrigated it. We achieved acceptable hemostasis. We then folded the skin edges together and closed them with 2-0 nylon simple stitches. A couple of 4-0 nylons were used laterally for skin approximation. Xeroform, sterile 4x4s, a Kerlix was applied. She tolerated it well, was sent to the recovery room in satisfactory condition. cc: Sea Rodas MD
[2018-12-21] MEDS ORDERED: NS 2,000 ML MISC PRN (10:44)
[2018-12-21] MEDS ORDERED: ZOFRAN IV PRN (14:19)
[2018-12-21] MEDS ORDERED: D5 1/2 NS 1,000 ML IV SCH (14:19)
[2018-12-21] MEDS ORDERED: NORCO-7.5 PO PRN (14:19)
[2018-12-21] MEDS: KEFZOL 500 MG in NS 50 ML IV SCH ×2 (18:30→21:50)
[2018-12-21] MEDS: ASPIRIN PO SCH (18:35)
[2018-12-21] MEDS: COREG PO SCH ×2 (18:35→21:50)
[2018-12-21] MEDS: CELEXA PO SCH (18:36)
[2018-12-21] MEDS: PHOSLO PO SCH (18:36)
[2018-12-21] MEDS: NON-FORMULARY BULK MED BOTH EYES SCH (18:49)
[2018-12-21] MEDS ORDERED: XALATAN 0.005% OPH SOLN BOTH EYES SCH (21:00)
[2018-12-21] MEDS: XANAX PO SCH ×2 (21:51→23:34)
[2018-12-21] MEDS: PERIDEX MT SCH (21:51)
[2018-12-22 06:15] LABS: BASO# 0.02 X1000 (0.0-0.2); BASO% 0.3 % (0.0-0.8); EOS# 1.26 X1000 (0.0-0.7); EOS% 17.5 % (0.0-10.0); HEMATOCRIT 31.9 % (37.0-47.0); HEMOGLOBIN 9.7 g/dL (12.0-16.0); LYMPH# 1.61 X1000 (1.2-3.4); LYMPH% 22.3 % (20.5-51.1); MCHC 30.4 g/dL (33-37); MCV 91.9 FL (81-99); MONO# 0.68 X1000 (0.11-0.59); MONO% 9.4 % (1.7-9.3); MPV 9.3 FL (7.4-10.4); NEUT# 3.65 X1000 (1.4-6.5); NEUT% 50.5 % (42.2-75.2); PLT 171 X1000 (130-400); RBC 3.47 XMIL (4.2-5.4); RDW 18.2 % (11.5-14.5); WBC 7.22 X1000 (4.8-10.8)
[2018-12-22] MEDS: KEFZOL 500 MG in NS 50 ML IV SCH ×2 (06:17→15:33)
[2018-12-22] MEDS: CELEXA PO SCH (08:54)
[2018-12-22] MEDS: COREG PO SCH (08:54)
[2018-12-22] MEDS: ASPIRIN PO SCH (08:54)
[2018-12-22] MEDS: PHOSLO PO SCH (08:54)
[2018-12-22] MEDS: NON-FORMULARY BULK MED BOTH EYES SCH (08:55)
[2018-12-22] MEDS: PERIDEX MT SCH ×2 (08:55→09:06)
[2018-12-22] MEDS ORDERED: SENSIPAR PO SCH (09:00)
--- NOTE | 2018-12-22 13:20 | GENERAL SURGERY PROGRESS NOTE ---
DATE: 12/22/2018 TIME SEEN: 12:35. SUBJECTIVE: Ms. Kline's foot looks wonderful. We redressed her. There is no further bleeding. Her foot is warm. PLAN: Allow her to go home. We will put her on Keflex for a week and she will return to see me in the office in 2 weeks. cc: Sea Rodas MD
[2018-12-22 22:12] VITALS: BP 178/85
== END 2018-12-22 22:14 | disposition home or self-care (01) ==
LOC: 4N 06:05 → OR 06:05
PROVIDERS: ATTEND Surgery
CPT/HCPCS: 80048; 82948; 85025; 85027; 88305; 93005; 93010; A9270; J0690; J2175; J7030; XXXXX

== ENCOUNTER 2019-02-15 13:56 | Inpatient (IN) ==
--- NOTE | 2019-02-15 14:38 | EKG Report ---
Test Performed on : 02/15/2019 2:30:19 PM Test Reason : BLOOD PRESSURE PROBLEMS Blood Pressure : / mmHG Vent. Rate : 061 BPM Atrial Rate : 061 BPM P-R Int : 260 ms QRS Dur : 098 ms QT Int : 426 ms P-R-T Axes : -08 -45 -12 degrees QTc Int : 428 ms Atrial-paced rhythm with prolonged AV conduction Left anterior fascicular block Minimal voltage criteria for LVH, may be normal variant Abnormal ECG When compared with ECG of 15-DEC-2018 17:56, (Unconfirmed) No significant change was found Unconfirmed Result
[2019-02-15 16:49] LABS: BASO# 0.03 X1000 (0.0-0.2); BASO% 0.5 % (0.0-0.8); EOS# 1.15 X1000 (0.0-0.7); EOS% 19.1 % (0.0-10.0); HEMATOCRIT 38.4 % (37.0-47.0); HEMOGLOBIN 12.3 g/dL (12.0-16.0); LYMPH# 1.53 X1000 (1.2-3.4); LYMPH% 25.4 % (20.5-51.1); MCH 27.1 PG (27-31); MCV 84.6 FL (81-99); MONO# 0.23 X1000 (0.11-0.59); MONO% 3.8 % (1.7-9.3); MPV 9.6 FL (7.4-10.4); NEUT# 3.08 X1000 (1.4-6.5); NEUT% 51.2 % (42.2-75.2); PLT 183 X1000 (130-400); RBC 4.54 XMIL (4.2-5.4); RDW 17.1 % (11.5-14.5); WBC 6.02 X1000 (4.8-10.8)
[2019-02-15 16:54] LABS: CALCIUM 8.8 mg/dL (8.8-10.2); CREATININE 3.1 mg/dL (0.5-0.9); POTASSIUM 3.9 mmol/L (3.5-5.1)
[2019-02-15] MEDS ORDERED: NS 2,000 ML MISC PRN (17:02)
--- NOTE | 2019-02-15 19:27 | Diag Imaging Result Doc PS360 ---
EXAM: CHEST-PORTABLE HISTORY: hypertension TECHNIQUE: Chest single view COMPARISON: 11/17/2018 FINDINGS: The lungs are well expanded. The heart is mildly enlarged. There is a left-sided pacemaker. The vessels are not distended. There are no infiltrates. No effusion identified. IMPRESSION: Stable chest Electronically signed by Shaheen Calero 02/15/2019 7:24 PM
[2019-02-15] MEDS: HEPARIN SUBQ SCH (20:25)
--- NOTE | 2019-02-15 20:46 | HISTORY AND PHYSICAL ---
CHIEF COMPLAINT: Elevated blood pressure of greater than 200 mmHg systolic and malfunctioning left AV fistula. HISTORY OF PRESENT ILLNESS: Ms. Kline is an 78-year-old lady with past medical history of end-stage renal disease and essential hypertension who was initially sent to [facility] for malfunctioning left arm AV fistula. However, she was sent back to the emergency room since her systolic blood pressure was greater than 200. In the emergency room, she was found to have a systolic blood pressure initially of 221/87 and then subsequently 250/110. She was immediately taken for dialysis. Dr. Rodas was also already consulted by Dr. Espinoza. She has been receiving dialysis without any complaints at the moment though. I evaluated the patient in the dialysis unit. Currently her blood pressure is 130/80. She is denying any chest pain, shortness of breath, nausea, vomiting, headache. She is denying any abdominal pain. She is denying any arm pain, tingling, numbness, or dizziness. She states at baseline she is able to use her walker and she lives with her daughter. REVIEW OF SYSTEMS: Negative for headache, blurriness of vision. Negative for chest pain, shortness of breath or palpitation. Negative for nausea, vomiting, diarrhea. Negative for tingling or numbness in extremities. PAST MEDICAL HISTORY: 1. End-stage renal disease on Thursday, , Thursday hemodialysis through left arm AV fistula. 2. Bilateral hand diabetic neuropathy. 3. Essential hypertension. 4. Lod-grbzpfo-olnrqpuza type 2 diabetes mellitus. 5. Cardiac arrhythmia status post pacemaker. 6. 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 CVA was affecting left hemisphere. PAST SURGICAL HISTORY: 1. Pacemaker placement. 2. Bilateral hip replacement. 3. Left AV graft. SOCIAL HISTORY: Patient denies any active tobacco, alcohol, or illicit drug use. She lives with her daughter and uses walker at baseline. FAMILY HISTORY: Mother had diabetes, essential hypertension. ALLERGIES: No known drug allergies. HOME MEDICATIONS: She is listed to be taking Xanax 0.5 mg nightly, Lipitor 10 mg nightly, Simbrinza eyedrops daily, calcium acetate 667 mg t.i.d., Celexa 20 mg daily, Neurontin 100 mg t.i.d., hydralazine 50 mg t.i.d., latanoprost 2.5 mL eyedrops nightly, Toprol extended release 50 mg daily. Updated medication list is pending. PHYSICAL EXAMINATION: VITAL SIGNS: Currently vitals in the dialysis unit suggests temperature of 97.7 degrees, pulse 62, respiratory rate 14, blood pressure 136/80, saturating 100% on room air. GENERAL: Patient does not appear in any acute distress. HEENT: Oral cavity is moist. LUNGS: Air entry bilaterally equal. No wheeze, rhonchi, crackles. CARDIOVASCULAR: S1, S2 normal. No murmur or gallop. ABDOMEN: Soft, nontender. EXTREMITIES: No lower extremity edema. NEUROLOGIC: She has a right-sided ptosis, right-sided facial droop. She is able to lift right upper and lower extremity above ground level. Her speech appears normal. She is alert and oriented x3. She is answering all questions appropriately. LABORATORY STUDIES: Suggestive of normal WBC, normal platelet count, normal electrolytes. Microbiology: No data. IMAGING STUDIES: EKG performed today was suggestive of atrially paced rhythm. There was no ST-T elevation. The patient is not complaining of any chest pain. ASSESSMENT AND PLAN: 1. Hypertensive urgency with systolic blood pressure greater than 220 mmHg. The patient's blood pressure has essentially normalized after dialysis. I will continue her home carvedilol and I will add back her hydralazine as tolerated. 2. End-stage renal disease, on hemodialysis. She is currently receiving hemodialysis through left forearm arteriovenous fistula. Dr. Rodas has been consulted to see if this would need further intervention if it starts malfunctioning again. DISPOSITION: It is already late in the day, and though patient's blood pressure is normal, I will just monitor her overnight on the telemetry unit. Plan of care discussed with the patient. All of her questions have been answered. Nephrology and General Surgery is on board. I will start patient on home aspirin for secondary prophylaxis. cc: Michael Aragon MD
[2019-02-15] MEDS ORDERED: COREG PO SCH (21:00)
[2019-02-15] MEDS: ASPIRIN PO SCH (23:14)
[2019-02-15] MEDS: APRESOLINE IV PRN (23:14)
[2019-02-16] MEDS: HEPARIN SUBQ SCH ×3 (05:57→23:00)
[2019-02-16 06:44] LABS: BASO# 0.27 X1000 (0.0-0.2); BASO% 4.1 % (0.0-0.8); EOS# 1.17 X1000 (0.0-0.7); EOS% 17.8 % (0.0-10.0); HEMOGLOBIN 13.9 g/dL (12.0-16.0); LYMPH# 1.56 X1000 (1.2-3.4); LYMPH% 23.8 % (20.5-51.1); MCH 28.2 PG (27-31); MCHC 31.6 g/dL (33-37); MCV 89.2 FL (81-99); MONO# 0.58 X1000 (0.11-0.59); MONO% 8.8 % (1.7-9.3); MPV 9.9 FL (7.4-10.4); NEUT# 2.98 X1000 (1.4-6.5); NEUT% 45.5 % (42.2-75.2); PLT 176 X1000 (130-400); RBC 4.93 XMIL (4.2-5.4); RDW 18.4 % (11.5-14.5); WBC 6.56 X1000 (4.8-10.8)
[2019-02-16] MEDS: LIPITOR PO SCH (08:17)
[2019-02-16] MEDS: PRINIVIL PO SCH (08:42)
[2019-02-16] MEDS: CELEXA PO SCH (08:43)
[2019-02-16] MEDS: BRINZOLAMIDE BOTH EYES SCH ×3 (08:44→18:27)
[2019-02-16] MEDS: ASPIRIN PO SCH (08:44)
[2019-02-16] MEDS: BRIMONIDINE TART BOTH EYES SCH ×3 (08:44→18:27)
[2019-02-16] MEDS: APRESOLINE IV PRN (08:46)
[2019-02-16] MEDS: PHOSLO PO SCH ×3 (08:46→18:23)
[2019-02-16] MEDS ORDERED: ASPIRIN PO SCH (09:00)
[2019-02-16] MEDS ORDERED: APRESOLINE PO SCH (09:00)
[2019-02-16 09:23] LABS: ALB/GLOB RATIO 0.8; ALBUMIN 3.3 g/dL (3.5-5.0); CALCIUM 9.2 mg/dL (8.8-10.2); CREATININE 3.3 mg/dL (0.5-0.9); MAGNESIUM 1.8 mg/dL (1.5-2.7); POTASSIUM 4.1 mmol/L (3.5-5.1); TOTAL BILIRUBIN 0.28 mg/dL (0.20-1.00); TOTAL PROTEIN 7.6 g/dL (6.3-8.3)
--- NOTE | 2019-02-16 10:41 | PROGRESS NOTE ---
DATE: 02/16/2019 INTERVAL HISTORY: Though after dialysis I was informed patient's blood pressure was 130/80. Once she returned to floor, her blood pressure was noted to be again very high in 200s. She only received intravenous hydralazine overnight. SUBJECTIVE: The patient denies any headache, blurring of vision, chest pain, shortness of breath, or abdominal pain. We discussed about her elevated blood pressure and adding home medications. VITAL SIGNS: Currently, temperature 98.9 degrees, pulse 60, respiratory rate 20, blood pressure 192/47 and saturating 100% on room air. PHYSICAL EXAMINATION: General: Does not appear in any acute distress. HEENT: Oral cavity is moist. Lungs: Air entry bilaterally equal. No wheeze, rhonchi, or crackles. Cardiovascular: S1, S2 normal. No murmur, rub, or gallop. Abdomen: Soft, nontender. Extremities: No lower extremity edema. The left upper extremity has AV fistula with adequate good thrill. Neurologic: She has a right-sided ptosis, right-sided facial droop. She is able to lift both upper and lower extremities above ground level against gravity. She does not have slurring of speech. LABORATORY: Her hemoglobin, hematocrit, and platelets have been within acceptable range. Normal electrolytes except elevated creatinine. Microbiology shows no data. IMAGING: Chest x-ray yesterday had stable chest. ASSESSMENT AND PLAN: 1. Hypertensive urgency with systolic blood pressure greater than 220. Continue p.o. hydralazine and p.o. lisinopril. Give IV hydralazine as needed. The goal of blood pressure is around 170 systolic. If she is able to achieve that blood pressure later during the day, my plan is to discharge her on p.o. medication. 2. End-stage renal disease on Thursday, , Thursday hemodialysis. Initially, there were concerns of left arm AV fistula malfunctioning, and so General Surgery was consulted. However, eventually the left arm AV fistula started working just fine. 3. Disposition: Based on her blood pressure, my plan is to discharge her later today. cc: Michael Aragon MD
--- NOTE | 2019-02-16 11:06 | PROVIDER DOCUMENTATION ---
This chart was entered by Francia Mejia Scribe, acting as scribe for Phillip Garcia MD. HPI-General Adult - General Stated Complaint: HIGH BP Time Seen by Provider: 02/15/19 15:05 Source: patient, RN/MD Allergies/Adverse Reactions: Patient Allergies Allergy/AdvReac Type Severity Reaction Status Date / Time No Known Allergies Allergy Verified 01/24/19 08:16 Home Medications: Home Medication List Medication Instructions Recorded Confirmed Last Taken Type Latanoprost 1 drop BOTH EYES QHS 05/20/13 02/15/19 01/25/19 21:00 History Alprazolam 0.5 mg PO QHS 06/13/17 02/15/19 01/25/19 21:00 History Citalopram [Celexa] 20 mg PO DAILY 06/13/17 02/15/19 01/25/19 08:00 History Aspirin 81 mg PO DAILY #120 chewtab 12/01/17 02/15/19 01/20/19 Rx Brinzolamide/Brimonidine Tart 1 drop BOTH EYES TID 11/01/18 02/15/19 01/25/19 21:00 History [Simbrinza 1%-0.2% Eye Drops] Calcium Acetate 667 mg PO DAILY 11/01/18 02/15/19 01/25/19 08:00 History Carvedilol [Coreg] 12.5 mg PO BID 12/21/18 01/26/19 01/25/19 21:00 History Cinacalcet HCl [Sensipar] 30 mg PO DIRECTED 12/21/18 02/15/19 02/14/19 History Atorvastatin Calcium 40 mg PO HS 01/26/19 02/15/19 01/25/19 08:00 History - History of Present Illness -Gen Adult Nature of Presenting Problems: 78 yobf presents to the ed with c/o LUE fistula not working correctly when pt went to dialysis this am. pt came to ed and dr zhang saw pt in ed and has sent upstairs for dialysis. pt c/o generalized itching and denies any pain Location of Pain/Injury: reports: upper extremity (fistula not working), other (fistula not working correctly) Quality of Pain: reports: none Severity: reports: mild Onset/Duration: reports: this morning Timing: reports: still present Context/Activities at Onset: reports: light activity Modifying Factors: improves with: nothing Associated Symptoms: denies: back/neck pain, chest pain, diaphoresis, fever/chills, nausea, shortness of breath, syncope, vomiting Similar Symptoms Previously?: Yes Recently seen or treated by another doctor?: Yes Review of Systems - Adult - REVIEW OF SYSTEMS - ADULT Constitutional: denies: chills, fever Eyes: reports: no symptoms reported Ears, Nose, Mouth & Throat: reports: no symptoms reported Cardiovascular: denies: chest pain, palpitations, syncope Respiratory: denies: cough, shortness of breath, wheezing Gastrointestinal: reports: no symptoms reported Genitourinary: reports: no symptoms reported Musculoskeletal: denies: back pain, neck pain Integumentary: reports: no symptoms reported Neurological: denies: dizziness/vertigo, headache/migraines Psychiatric: reports: no symptoms reported Endocrine: reports: no symptoms reported Hematologic/Lymphatic: reports: no symptoms reported Allergic/Immunologic: reports: no symptoms reported All Other Systems: Reviewed and Negative Past History - Adult - PAST MEDICAL HISTORY-ADULT Review of Records: reports: Nursing Assessment Review, Medications Reviewed Major Childhood Illnesses: reports: denies history Cardiovascular: reports: HTN, pacemaker Respiratory: reports: denies history Gastrointestinal: reports: GERD, other (hx of esophageal dilation) Obstetrical/Gynecological: reports: denies history Genitourinary: reports: dialysis (last dialyzed today; regularly days are Thursday, and Thursday), ESRD, kidney disease Musculoskeletal: reports: denies history Hand Dominance: Right Handed Neurological: reports: CVA, stroke deficits, 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.) Psychiatric: reports: denies history Endocrine/Immune: reports: Diabetes Diabetes Type: Type 2 Other Conditions: reports: cataract/glaucoma (glaucoma), deaf/hard of hearing - PRIOR SURGERIES/PROCEDURES Surgical/Procedure History: reports: recent surgery (had a digit removed from left foot), EGD, pacemaker, indwelling device (fistula in the left arm), joint replacement (total hip) - IMMUNIZATION STATUS Childhood Immunizations: UTD, See Nurse Assessment Flu Vaccine: See Nurse Assessment - FAMILY HISTORY Family History: reviewed, not pertinent - SOCIAL HISTORY Smoking: denies Substance Use: denies Living Situation: family Physical Exam-General - PHYSICAL EXAM-ADULT Initial Vital Signs Reviewed: Yes (HTN 240/120) - CONSTITUTIONAL General Appearance: appears well, alert, no apparent distress, obese - EYES Eyes: PERRL/EOMI, pink conjunctivae - HEAD, EARS, NOSE, MOUTH & THROAT HENMT: moist mucous membranes, dental decay - NECK Neck: non-tender, full range of motion, normal inspection - RESPIRATORY Respiratory: chest non-tender, lungs clear, normal breath sounds - CARDIOVASCULAR Cardiovascular: normal peripheral pulses, regular rate, rhythm - GASTROINTESTINAL (ABDOMEN) Abdominal Exam: normal bowel sounds, non tender, soft, no organomegaly, no pulsatile mass - LYMPHATIC Lymphatic: no adenopathy - MUSCULOSKELETAL Back Exam: normal inspection, no CVA tenderness, no vertebral tenderness Extremity: normal capillary refill, pelvis stable, other (dialysis fistula in E it is not working correctly. dr zhang is in ed) - SKIN Integumentary: normal color, normal turgor, warm/dry - NEUROLOGIC Neurologic: grossly normal - PSYCHIATRIC Psych/Mental Status: normal mood/affect, normal thought content, normal thought process, oriented x 3 Progress - PLAN OF CARE/RESULTS Progress/Plan/Lab Results: Vital Signs - 8 hr 02/15/19 14:24 Temperature 97.7 F Pulse Rate 65 Respiratory Rate 20 Blood Pressure 221/87 O2 Sat by Pulse Oximetry 96 Orders Category Date Time Status EKG [EKG] Stat Ther 02/15/19 14:32 Draft Result Diagrams: 02/16/19 05:53 02/16/19 07:25 - REASSESSMENT Reassessment #1 Time Reassessed: 15:24 (pt went upstairs for dialysis) Status: unchanged - EKG 1 Time of EKG reading by physician:: 14:30 EKG Read and Signed by:: Phillip Garcia EKG Interpretation (*Must complete 3 of following elements*): Abnormal Rate: 61 Rhythm: atrial paced rhythm w/ prolonged AV conduction Jackson: normal QRS: LVH, other (LAFB) OR Interval: normal ST Wave: normal - CONSULTS/PCP/HOSPITALIST Notification #1 *Consult/PCP/Hospitalist*: hospitalist Time Discussed: 15:16 Consult Disposition: Admit #2 Consult: dr contreras sx Time Discussed: 15:24 Reason/Comments: phone consult Departure - Departure Date of Disposition Decision: 02/15/19 Time of Disposition Decision: 18:50 DIAGNOSIS: End stage chronic kidney disease, Dialysis AV fistula malfunction Disposition: ADMITTED INPATIENT 09 Certified Medical Emergency: Emergent Condition: Serious - Critical Care Note This patient required my direct & personal management of CC.: Yes Total Time (mins): 32 Critical Care Statement: This patient required my direct personal management to treat or rule out processes, the absence of which, could potentiallly result in sudden, clinically significant life or limb threatening deterioration. Attestation - Physician/ CHANDRA Attestation Patient care was provided by Advanced Practice Provider:: No The physician spent face to face time with patient:: Yes Advanced Practice Provider documentation review:: Supervising physician onsite and consulted in the evaluation and care of this patient. The physician did have a face to face encounter with the patient. This chart was documented by the indicated scribe, (Francia Mejia Scribe) and accurately reflects the services I performed and decisions made by me, Phillip Garcia MD, as attested by the provider's signature.
--- NOTE | 2019-02-16 11:44 | NEPHROLOGY PROGRESS NOTE ---
DATE: 02/16/2019 SUBJECTIVE: No complaints. OBJECTIVE: Vital signs: Blood pressure 200/60, heart rate 60, respirations 20, afebrile. Generally: No acute distress. Skin: Warm and dry. Neck: Neck veins are not distended. Cardiovascular: Heart is regular with S4. Lungs: Equal, shallow, no crackles. Abdomen: Soft, nontender. Bowel sounds present. Extremities: No edema, clubbing, or cyanosis. Left upper arm fistula with normal pulse and thrill. IMPRESSION: 1. Access complication. No difficulty with dialysis last evening. Exam is normal this morning and Dr. Rodas's exam did as well. We agree that no intervention is required at this time. From that perspective, she can certainly be discharged and we can study her access as an outpatient. 2. Hypertension. Blood pressure remains elevated. I will add an angiotensin receptor kendall. Her beta-kendall has been withheld because of bradycardia. Titrate her hydralazine to 100 mg t.i.d. cc: David Espinoza MD
[2019-02-16] MEDS: APRESOLINE PO SCH ×3 (15:30→23:00)
[2019-02-16] MEDS ORDERED: HALDOL IM ONE (16:43)
[2019-02-16] MEDS ORDERED: HALDOL IV ONE (16:43)
[2019-02-16] MEDS: COREG PO SCH (18:26)
[2019-02-16] MEDS: XANAX PO SCH (19:55)
[2019-02-16] MEDS: XALATAN 0.005% OPH SOLN BOTH EYES SCH (19:56)
[2019-02-16] MEDS: MELATONIN PO SCH (20:16)
[2019-02-17] MEDS: COREG PO SCH ×3 (05:04→22:17)
[2019-02-17] MEDS: XALATAN 0.005% OPH SOLN BOTH EYES SCH ×2 (05:04→22:02)
[2019-02-17] MEDS: XANAX PO SCH ×2 (05:05→22:03)
[2019-02-17] MEDS ORDERED: NS 2,000 ML MISC PRN (05:50)
[2019-02-17] MEDS ORDERED: HEPARIN IV PRN (05:50)
[2019-02-17] MEDS ORDERED: TIGHT: 0.2 ML/HR FOR DIALYSIS MISC PRN (05:50)
[2019-02-17] MEDS: HEPARIN SUBQ SCH ×3 (07:03→22:03)
[2019-02-17] MEDS: PHOSLO PO SCH ×3 (07:04→17:30)
--- NOTE | 2019-02-17 09:37 | NEPHROLOGY PROGRESS NOTE ---
DATE: 02/17/2019 SUBJECTIVE: Patient resting in bed. She is confused as to where she is and what day it is. She reorients quickly. She is calm and cooperative. OBJECTIVE: Vital Signs: Temperature 97.5 degrees, pulse 71, respiratory rate 18, blood pressure 159/66. Intake 460 mL, output not measured. General: This is an elderly female, resting in bed. She does not appear in any distress. HEENT: Normocephalic, atraumatic. Her oral mucosa is moist. Neck: Supple. No JVD. Cardiovascular: Regular rate and rhythm. No murmur or gallop appreciated. Pulmonary: She is clear bilaterally with equal excursion. Abdomen: Soft with positive bowel sounds. : Not inspected. Minimal void with hemodialysis assist. Extremities: Left upper extremity with AV fistula and positive thrill. Integumentary: Skin appears warm and dry otherwise. LABORATORY DATA: None available yet. ASSESSMENT AND PLAN: 1. Chronic kidney disease 5D. Today is her routine dialysis day. Based on her previous labs, will dialyze on a 2-potassium bath/ultrafiltrate to dry weight, 3.5-hour treatment. 2. Hypertensive urgency. Blood pressure under much better control. Again, will try to ultrafiltrate to dry weight with assistance to that. She does continue on Coreg, Apresoline, Prinivil. Dictated by SHAHIDA Meek for David Espinoza MD Face to face encounter, data reviewed, discussed with Beverly Ponce on 02/17/19. I agree with the above assessment and plan of care. cc: David Espinoza MD [facility]
[2019-02-17] MEDS: LIPITOR PO SCH (10:46)
[2019-02-17] MEDS: APRESOLINE PO SCH ×3 (10:46→22:17)
[2019-02-17] MEDS: PRINIVIL PO SCH (10:46)
[2019-02-17] MEDS: BRIMONIDINE TART BOTH EYES SCH ×3 (10:47→17:31)
[2019-02-17] MEDS: CELEXA PO SCH (10:47)
[2019-02-17] MEDS: BRINZOLAMIDE BOTH EYES SCH ×3 (10:47→17:31)
[2019-02-17] MEDS: ASPIRIN PO SCH (10:47)
--- NOTE | 2019-02-17 14:41 | PROGRESS NOTE ---
DATE: 02/17/2019 SUBJECTIVE: Today Ms. Kline refers to be feeling fairly okay. Denies any new complaints. OBJECTIVE: Vital signs: Blood pressure is 157/60, pulse of 59, respirations 22, temperature 97.6 degrees. General: Ms Kline is an 78-year-old female. She is in bed in no distress. HEENT: Mucosa is pink and moist. Anicteric. Acyanotic. Neck: Supple. Chest: Clear to auscultation. Cardiovascular: Regular rate and rhythm. Abdomen: Soft. Extremities: No pedal edema. 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 There is also an AV fistula on the right. LABORATORY DATA: None for today. ASSESSMENT: 1. Hypertensive urgency on presentation with initial blood pressure reading of 221. The patient's blood pressure has significantly improved with medication and ultrafiltration. 2. Endstage renal disease on hemodialysis Thursday, , and Saturdays. It appears that the patient had a normal dialysis through the fistula today. 3. Disposition. I understand the patient lives at home with home health. We will most likely get her discharged her 1st thing in the morning. cc: Dawson Denise MD
[2019-02-17] MEDS: MELATONIN PO SCH (22:03)
[2019-02-18] MEDS: HEPARIN SUBQ SCH ×2 (06:28→14:17)
[2019-02-18] MEDS: PHOSLO PO SCH ×4 (06:28→12:26)
[2019-02-18] MEDS: LIPITOR PO SCH (08:10)
[2019-02-18] MEDS: CELEXA PO SCH (08:10)
[2019-02-18] MEDS: ASPIRIN PO SCH (08:11)
[2019-02-18] MEDS: PRINIVIL PO SCH (08:11)
[2019-02-18] MEDS ORDERED: SENSIPAR PO SCH (09:00)
[2019-02-18] MEDS: COREG PO SCH (10:54)
[2019-02-18] MEDS: APRESOLINE PO SCH ×2 (10:54→14:51)
[2019-02-18] MEDS: BRINZOLAMIDE BOTH EYES SCH ×2 (10:55→14:17)
[2019-02-18] MEDS: BRIMONIDINE TART BOTH EYES SCH ×2 (10:55→14:17)
[2019-02-18 14:35] VITALS: BP 156/72
--- NOTE | 2019-02-18 16:46 | NEPHROLOGY PROGRESS NOTE ---
DATE: 02/18/2019 SUBJECTIVE: Patient resting in bed. No complaints. OBJECTIVE: Vital Signs: Temperature 97 degrees, pulse 61, respiratory rate 20, blood pressure 132/50. Intake 450 mL. Output 1.1 L on dialysis. General: This is an elderly female, resting in bed. She is in no acute distress HEENT: Normocephalic, atraumatic. Oral mucosa moist. Neck: Supple. No neck veins. Cardiovascular: Regular. Pulmonary: Clear bilaterally. Abdomen: Soft. Genitourinary: Not inspected. Hemodialysis. Extremities: No clubbing, cyanosis, edema. Left upper extremity AV fistula noted. Integumentary: Warm and dry. LABORATORY DATA: None. ASSESSMENT AND PLAN: 1. Chronic kidney disease 5 D. She dialyzed yesterday, 1.1 L removed. Have no treatment scheduled for today. If she does remain tomorrow, plan to dialyzer her at that time. 2. Hypertensive urgency. Blood pressure currently controlled. 3. Disposition. Anticipate discharge today. Continue dialysis as an outpatient. Dictated by SHAHIDA Meek for David Espinoza MD Face to face encounter, data reviewed, discussed with Beverly Ponce on 02/18/19. I agree with the above assessment and plan of care. cc: David Espinoza MD [facility]
--- NOTE | 2019-02-19 12:36 | DISCHARGE SUMMARY ---
ADMISSION DATE: 02/17/2019 DISCHARGE DATE: 02/18/2019 ADMITTING DIAGNOSES: 1. Hypertensive urgency with systolic blood pressure greater than 220. 2. End stage renal disease on hemodialysis. DISCHARGE DIAGNOSES: 1. Hypertensive urgency with initial blood pressure of 221. It significantly improved with medication and ultrafiltration. 2. End stage renal disease on hemodialysis on Thursday, and Thursday. Fistula was used. CONSULTATIONS: Dr. Espinoza SURGERIES OR PROCEDURES: She had hemodialysis. HOSPITAL COURSE: Ms. Reva Kline is an 78-year-old female who was directly admitted by Dr. Espinoza due to AV fistula malfunctioning and needing hemodialysis. She was sent to the emergency department due to her blood pressure being greater than 200, was found to have systolic 221 over 87. A repeat was 250/110. She was immediately taken to dialysis. Dr. Rodas was also consulted by Dr. Espinoza. Once evaluated in the Dialysis Unit, her blood pressure is down to 130/80. Denied any chest pain or any fever. No other complaints. There was no intervention needed for the fistula, as everything was working appropriately. She was started on angiotensin receptor kendall. Beta kendall was held because of bradycardia, and they titrated her hydralazine up to 100 three times a day. She received hemodialysis yesterday and today is stable and is going to go home with home health. DISCHARGE VITAL SIGNS: Temperature 97.5, heart rate 75, respiratory rate 20, blood pressure 164/50, O2 saturation is 92% on room air. DISCHARGE LAB DATA: White blood cells 6000, hemoglobin 13, hematocrit 44, platelet count 176. Sodium 140, potassium 4.1, BUN is 20, creatinine 3.3, glucose 63. Magnesium 1.8. Bilirubin is 0.28, AST is 14, ALT is 6. IMAGING: She had a chest x-ray which was stable. She had EKG that showed atrial paced rhythm with prolonged AV conduction, rate was 61. DISCHARGE MEDICATIONS: 1. Xanax 0.5 mg p.o. nightly. 2. Latanoprost 1 drop in both eyes nightly. 3. Atorvastatin calcium 40 mg p.o. nightly. 4. Calcium acetate 667 mg p.o. daily. 5. Celexa 20 mg p.o. daily. 6. Sensipar 30 mg take 1 tablet 4 times a week. 7. Simbrinza eyedrops in both eyes 3 times daily. 8. Melatonin 3 mg p.o. nightly. 9. Coreg 6.25 mg p.o. every 12 hours. 10.Apresoline 100 mg p.o. t.i.d. 11.Aspirin 81 mg p.o. daily. 12.Lisinopril 40 mg p.o. daily. DISCHARGE DIET: Renal diet. DISCHARGE ACTIVITY: As tolerated. DISCHARGE INSTRUCTIONS: Continue dialysis as scheduled. Follow up with Dr. Espinoza and Dr. Anderson. DISCHARGE DISPOSITION: Discharge home with home health. Dictated by SHAHIDA Saeed for Dawson Denise MD cc: SHAHIDA Saeed MD I have seen and examined Ms Kline today. Ms Kline is stable for discharge home with home health. I have reviewed and reconciled her home medications. I agree with the above discharge summary. [facility]
== END 2019-02-18 16:15 | disposition home health service (06) | DRG 304 ==
LOC: SUPCPDRO → ED 13:56 → EDIPHOLD 13:56 → SUATTDRO 19:45 → 4N 21:39
PROVIDERS: ATTEND Internal Medicine
CPT/HCPCS: 71010; 71045; 80048; 80053; 83735; 84132; 85025; 93005; 96372; 99285; A9270; J0360; J1630; J1644; J7030

== ENCOUNTER 2019-05-28 22:03 | Inpatient (IN) ==
[2019-05-28 23:09] LABS: BASO# 0.07 X1000 (0.0-0.2); EOS# 0.49 X1000 (0.0-0.7); HEMATOCRIT 42.5 % (37.0-47.0); HEMOGLOBIN 13.9 g/dL (12.0-16.0); LYMPH# 1.47 X1000 (1.2-3.4); LYMPH% 21.1 % (20.5-51.1); MCH 26.7 PG (27-31); MCHC 32.7 g/dL (33-37); MCV 81.7 FL (81-99); MONO# 0.41 X1000 (0.11-0.59); MONO% 5.9 % (1.7-9.3); MPV 9.5 FL (7.4-10.4); NEUT# 4.52 X1000 (1.4-6.5); PLT 208 X1000 (130-400); RDW 18.7 % (11.5-14.5); WBC 6.96 X1000 (4.8-10.8)
[2019-05-28 23:25] LABS: INR 1.16; PTT 31.3 Seconds (22.3-41.8)
[2019-05-28] MEDS ORDERED: APRESOLINE IV ONE (23:32)
[2019-05-28 23:33] LABS: ALB/GLOB RATIO 0.7; ALBUMIN 4.1 g/dL (3.5-5.0); CALCIUM 10.6 mg/dL (8.8-10.2); CREATININE 3.1 mg/dL (0.5-0.9); POTASSIUM 3.8 mmol/L (3.5-5.1); TOTAL BILIRUBIN 0.43 mg/dL (0.20-1.00); TOTAL PROTEIN 9.8 g/dL (6.3-8.3)
--- NOTE | 2019-05-28 23:33 | PROVIDER DOCUMENTATION ---
HPI-General Adult - General Chief Complaint: General Adult Stated Complaint: HEARTBURN Time Seen by Provider: 05/28/19 22:21 Source: patient, family Allergies/Adverse Reactions: Patient Allergies Allergy/AdvReac Type Severity Reaction Status Date / Time No Known Allergies Allergy Verified 01/24/19 08:16 Home Medications: Home Medication List Medication Instructions Recorded Confirmed Last Taken Type Latanoprost 1 drop BOTH EYES QHS 05/20/13 02/15/19 01/25/19 21:00 History Alprazolam 0.5 mg PO QHS 06/13/17 02/15/19 01/25/19 21:00 History Citalopram [Celexa] 20 mg PO DAILY 06/13/17 02/15/19 01/25/19 08:00 History Aspirin 81 mg PO DAILY #120 chewtab 12/01/17 02/15/19 01/20/19 Rx Brinzolamide/Brimonidine Tart 1 drop BOTH EYES TID 11/01/18 02/15/19 01/25/19 21:00 History [Simbrinza 1%-0.2% Eye Drops] Calcium Acetate 667 mg PO DAILY 11/01/18 02/15/19 01/25/19 08:00 History Carvedilol [Coreg] 12.5 mg PO BID 12/21/18 01/26/19 01/25/19 21:00 History Cinacalcet HCl [Sensipar] 30 mg PO DIRECTED 12/21/18 02/15/19 02/14/19 History Atorvastatin Calcium 40 mg PO HS 01/26/19 02/15/19 01/25/19 08:00 History Aspirin 81 mg PO DAILY chewtab 02/18/19 Unknown Rx Carvedilol [Coreg] 6.25 mg PO Q12HR #120 tab 02/18/19 Unknown Rx Hydralazine [Apresoline] 100 mg PO 0900,1500,2100 #180 tab 02/18/19 Unknown Rx LISINOpril [Prinivil] 40 mg PO DAILY #120 tab 02/18/19 Unknown Rx Melatonin 3 mg PO QHS #120 tab 02/18/19 Unknown Rx - History of Present Illness -Gen Adult Nature of Presenting Problems: 78 YO F pmh for ESRD on HD T,, Sat presents with c/o abdominal pain, n/v/ and diarrhea worsening today after dialysis. She was able to complete her dialysis today. Location of Pain/Injury: reports: abdomen Pain Radiation: reports: no radiation Severity: reports: mild Onset/Duration: reports: this afternoon Timing: reports: still present Context/Activities at Onset: reports: recent physical stress Associated Symptoms: reports: nausea, vomiting, weakness. 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.) Psychiatric: reports: denies history Endocrine/Immune: reports: Diabetes Other Conditions: reports: cataract/glaucoma (glaucoma) - PRIOR SURGERIES/PROCEDURES Surgical/Procedure History: reports: recent surgery (had a digit removed from left foot), EGD, pacemaker, indwelling device (fistula in the left arm), joint replacement (total hip) - IMMUNIZATION STATUS Childhood Immunizations: UTD, See Nurse Assessment Flu Vaccine: See Nurse Assessment - FAMILY HISTORY Family History: reviewed, not pertinent Physical Exam-General - PHYSICAL EXAM-ADULT Initial Vital Signs Reviewed: Yes - CONSTITUTIONAL General Appearance: alert, mild distress (from pain) - HEAD, EARS, NOSE, MOUTH & THROAT HENMT: normocephalic/atraumatic - RESPIRATORY Respiratory: lungs clear, normal breath sounds - CARDIOVASCULAR Cardiovascular: normal peripheral pulses, no edema, irregularly irregular - GASTROINTESTINAL (ABDOMEN) Abdominal Exam: normal bowel sounds, non tender, soft. negative: distended, guarding, rigid, rebound - MUSCULOSKELETAL Extremity: other (left foot partial amputation from metatarsal, 0.5cm ulcer to medial left ankle) - SKIN Integumentary: normal color, normal turgor - NEUROLOGIC Neurologic: facial droop, other (residual right sided weakness) - PSYCHIATRIC Psych/Mental Status: normal mood/affect Progress - PLAN OF CARE/RESULTS Progress/Plan/Lab Results: Vital Signs - 8 hr 05/28/19 22:32 Temperature 98.3 F Pulse Rate 60 Respiratory Rate 18 Blood Pressure 245/81 O2 Sat by Pulse Oximetry 99 Laboratory Results - last 24 hr 05/28/19 05/28/19 22:52 22:52 WBC 6.96 RBC 5.20 Hgb 13.9 Hct 42.5 MCV 81.7 MCH 26.7 L MCHC 32.7 L RDW Std Deviation 18.7 H Plt Count 208 MPV 9.5 Immature Gran % (Auto) 0.0 Neut % (Auto) 65.0 Lymph % (Auto) 21.1 [place] % (Auto) 5.9 Eos % (Auto) 7.0 Baso % (Auto) 1.0 H Immature Gran # (Auto) 0.00 Neut # (Auto) 4.52 Lymph # (Auto) 1.47 [place]ett # (Auto) 0.41 Eos # (Auto) 0.49 Baso # (Auto) 0.07 PT 15.0 INR 1.16 PTT (Actin FS) 31.3 Orders Category Date Time Status CHEST-1 VIEW [RAD] Stat Exams 05/28/19 22:25 Taken CBC WITH ELECTRONIC DIFF [HEME] Stat Lab 05/28/19 22:52 Completed CK PROFILE [SP CHEM] Stat Lab 05/28/19 22:52 Received CMP [COMPREHENSIVE METABOLIC PANEL] [CHEM] Stat Lab 05/28/19 22:52 Received PROTIME WITH INR [COAG] Stat Lab 05/28/19 22:52 Completed PTT [COAG] Stat Lab 05/28/19 22:52 Completed TROPONIN T Stat Lab 05/28/19 22:52 Received EKG [EKG] Stat Ther 05/28/19 22:22 Ordered hospitalist paged at 0200. admission for HTN Emergency, n/v. Stable CXR, trop at 0.06 (baseline compared to previous) and CT abd showing cholelithiasis, with mildly elevated Lipase at 120. Result Diagrams: 05/28/19 22:52 05/28/19 22:52 - REASSESSMENT Reassessment #1 Time Reassessed: 12:40 Status: improving (pt BP now at 215/100s, will try for labetalol next as HR has increased to 80bpm. active vomiting. zofran administered. will reevaluate) Reassessment #2 Time Reassessed: 01:53 Status: improving (BP now at 190s/80s with HR in 70s. pt states her abdominal pain is improving.) - EKG 1 Time of EKG reading by physician:: 22:40 EKG Read and Signed by:: Nivia Mcallister EKG Interpretation (*Must complete 3 of following elements*): Abnormal (atrial paced rhythm, left axis deviation, PVCs, prolonged QT interval) [place]: left Prior EKG Comparison: unchanged from prior (January 2019) - XRAY 1 XRAY Study: Chest Comparison with other Films: no changes (stable CXR when compared to previous CXR in January 2019) - CT/MRI 1 CT Study: Head (No acute intracranial process, signed by Dr. Rucker.) 2 CT Study: Abdomen (Mild Cholelithiasis, no bowel obstruction. small hiatal hernia and 2.5 and 2.4 cm dimension splenic artery aneurysms unchanged from 06/13/17. Signed By Dr. Rucker.) - CONSULTS/PCP/HOSPITALIST Notification #1 *Consult/PCP/Hospitalist*: Dr. Gonzalez Time Discussed: 02:44 Consult Disposition: Will see in ED Departure - Departure Date of Disposition Decision: 05/29/19 Time of Disposition Decision: 02:38 DIAGNOSIS: Hypertensive emergency, ESRD (end stage renal disease) on dialysis, Nontraumatic amputation of left foot Disposition: ADMITTED INPATIENT 09 Certified Medical Emergency: Emergent Condition: Serious Referrals and Follow-Ups: Rick Anderson MD [Primary Care Provider] - - Critical Care Note This patient required my direct & personal management of CC.: Yes Total Time (mins): 35 Critical Care Statement: This patient required my direct personal management to treat or rule out processes, the absence of which, could potentiallly result in sudden, clinically significant life or limb threatening deterioration. Attestation - Physician/ CHANDRA Attestation The physician spent face to face time with patient:: Yes Advanced Practice Provider documentation review:: Supervising physician onsite and consulted in the evaluation and care of this patient. The physician did have a face to face encounter with the patient.
--- NOTE | 2019-05-28 23:36 | EKG Report ---
Test Performed on : 05/28/2019 10:36:38 PM Test Reason : CP Blood Pressure : / mmHG Vent. Rate : 068 BPM Atrial Rate : 060 BPM P-R Int : 212 ms QRS Dur : 096 ms QT Int : 484 ms P-R-T Axes : 011 -36 049 degrees QTc Int : 514 ms Atrial-paced rhythm with prolonged AV conduction with occasional supraventricular complexes and with occasional premature ventricular complexes. Left axis deviation Moderate voltage criteria for LVH, may be normal variant Prolonged QT Abnormal ECG When compared with ECG of 15-FEB-2019 14:30, premature ventricular complexes. are now present Non-specific change in ST segment in Inferior leads T wave inversion no longer evident in Inferior leads QT has lengthened Unconfirmed Result
[2019-05-28] MEDS ORDERED: ASPIRIN PO ONE (23:37)
[2019-05-29] MEDS ORDERED: ZOFRAN IV ONE (00:10)
[2019-05-29] MEDS ORDERED: LABETALOL IV ONE (00:36)
--- NOTE | 2019-05-29 05:38 | HISTORY AND PHYSICAL ---
PRIMARY CARE PHYSICIAN: Dr. Anderson. CHIEF COMPLAINT: Nausea, vomiting. HISTORY OF PRESENTING ILLNESS: An 78-year-old female with a history of end- stage renal disease on renal dialysis Thursday, and Thursday, hypertension, diabetes mellitus type 2, who presented to emergency department with a 1-day history of having worsening nausea, vomiting. Patient states that she could not keep anything down and was not feeling well. The patient is a poor historian. Most of the history is obtained from family members. At time of my examination, patient denied any headache, fever, chills, chest pain, shortness of breath, or any weight changes, but complained of nausea, vomiting, and not feeling well. PAST MEDICAL HISTORY: Includes end-stage renal disease on renal dialysis Thursday, , Thursday, hypertension, diabetes mellitus type 2. PAST SURGICAL HISTORY: ICD, forefoot amputation, bilateral hip surgery. ALLERGIES: No known drug allergies. CURRENT MEDICATIONS: Include alprazolam 0.5 mg p.o. at bedtime, aspirin 81 mg p.o. daily, atorvastatin 40 mg p.o. at bedtime, carvedilol 6.25 mg p.o. daily, citalopram 20 mg p.o. daily, hydralazine 100 mg p.o. t.i.d., lisinopril 40 mg p.o. daily, latanoprost 1 drop to both eyes at bedtime. SOCIAL HISTORY: No history of smoking, alcohol, or illicit drug use. FAMILY HISTORY: Positive for coronary disease in Mother. REVIEW OF SYSTEMS: Fourteen point review of systems is as in HPI. Other systems negative. PHYSICAL EXAMINATION: GENERAL: Cooperative, friendly female. She is resting comfortably now. VITAL SIGNS: Temperature 98.3 degrees, pulse 60, respirations 18, blood pressure 181/81. HEENT: Atraumatic, normocephalic. Extraocular movements intact. PERRLA. NECK: No masses. CHEST: Clear to auscultation. CARDIOVASCULAR: Regular rate and rhythm. ABDOMEN: Soft. Positive bowel sounds. EXTREMITIES: No edema. NEUROLOGIC: She is awake, alert, oriented x1. GENITOURINARY: No bladder distention. SKIN: Warm. LABORATORIES AND STUDIES: WBC 6.96, hemoglobin 13.9, hematocrit 42.5, platelets 208,000. Sodium 139, potassium 3.8, chloride 92, CO2 is 31, BUN is 30, creatinine is 3.1. Glucose is 195. ASSESSMENT: This is an 78-year-old elderly female with a history of end-stage renal disease, hypertension, diabetes mellitus type 2, who had presented to emergency department with 1-day history of having worsening nausea, vomiting. She was evaluate in the emergency department, and due to her presenting symptoms, we will place in for observation for further evaluation and management. 1. Intractable nausea and vomiting. 2. Hypertensive urgency. 3. End-stage renal disease. 4. Diabetes mellitus type 2, diet controlled. PLAN: 1. We will admit patient to medical floor with telemetry. 2. Continue with supportive treatment with antiemetics as needed. 3. We will monitor blood pressure closely. Resume antihypertensive agents. 4. If the patient remains in hospital the patient will need dialysis. We will consult Nephrology. 5. Monitor blood glucose closely. 6. We will put patient on DVT prophylaxis with heparin. 7. We will continue to follow and reassess, make further recommendation based on patient's clinical course. cc: Manuel Gonzalez MD MTDD
[2019-05-29] MEDS ORDERED: APRESOLINE IV PRN (05:46)
[2019-05-29] MEDS: ZOFRAN IV PRN (06:12)
--- NOTE | 2019-05-29 08:38 | Diag Imaging Result Doc PS360 ---
EXAM: CHEST-1 VIEW INDICATION: chest pain TECHNIQUE: One view COMPARISON: 02/15/2019 FINDINGS: The lungs are grossly clear. There is no discrete pleural fluid collection or pneumothorax. The cardiac silhouette is mildly prominent but stable. The pacemaker is in stable position. Central vasculature is unremarkable. IMPRESSION: Stable mild cardiomegaly. No definite acute pathology by plain radiograph. Electronically signed by Cosmo Miramontes 05/29/2019 8:35 AM
--- NOTE | 2019-05-29 09:29 | Diag Imaging Result Doc PS360 ---
EXAM: CT ABDOMEN/PELVIS W/O CONTRAST INDICATION: abdominal pain TECHNIQUE: This exam was performed using automated exposure control, adjustment of mA or kV according to patient size, and/or use of iterative reconstruction technique. COMPARISON: 03/25/2015 FINDINGS: There is stable cardiomegaly. There is subsegmental atelectasis and/or scarring at the lung bases. There are a few small calcified stones layering in the gallbladder lumen. There is no evidence of pericholecystic inflammatory change. There is extensive aortoiliac atherosclerotic calcification and extensive calcification of the aortic branches. There are two calcified splenic artery aneurysms with the largest measuring up to 2.4 cm. These are stable. The liver, spleen, pancreas, and adrenal glands are unremarkable. There are several small renal cysts bilaterally and both kidneys are atrophic suggesting chronic renal insufficiency. The kidneys are unremarkable, otherwise. There is extensive metallic beam hardening artifact from bilateral hip arthroplasty. This obscures part of the pelvis. It largely obscures the urinary bladder. There is extensive calcification involving the wall of the uterus. There may be mild endometrial thickening. However, it is stable. The reproductive tract is unremarkable as imaged, otherwise. The appendix is normal. There is no evidence of bowel wall thickening and no bowel obstruction. The distal esophageal wall is thickened suggesting possible esophagitis. There is a fair amount of stool in the colon and rectum suggesting possible constipation. The remainder of the GI tract is essentially unremarkable. There is no evidence of acute osseous abnormality. IMPRESSION: 1.Possible mild constipation. 2.Thickening of the distal esophageal wall suggesting possible esophagitis. 3.Mild cholelithiasis. 4.Other incidental/nonacute findings detailed above. Electronically signed by Cosmo Miramontes 05/29/2019 9:27 AM
[2019-05-29] MEDS: HEPARIN SUBQ SCH ×2 (09:32→22:06)
--- NOTE | 2019-05-29 09:35 | Diag Imaging Result Doc PS360 ---
EXAM: CT HEAD W/O CONTRAST INDICATION: stroke TECHNIQUE: This exam was performed using automated exposure control, adjustment of mA or kV according to patient size, and/or use of iterative reconstruction technique. COMPARISON: 02/19/2019 FINDINGS: There is suggestion of mild periventricular and subcortical white matter microangiopathy. There is no definite acute infarct given the limited sensitivity of CT versus MRI. There is a stable bony excrescence at the inner table of the skull on the left at the sylvian fissure. This could represent a densely calcified meningioma or, more likely, focal hyperostosis. No discrete intracranial mass, mass effect, or intracranial hemorrhage is identified, otherwise. There has been a prior right mastoidectomy. 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 Surrounding soft tissues and bony structures are essentially unremarkable, otherwise. IMPRESSION: Stable chronic changes. No evidence of acute intracranial pathology. Electronically signed by Cosmo Miramontes 05/29/2019 9:33 AM
[2019-05-29] MEDS ORDERED: PRILOSEC PO ONE (16:17)
--- NOTE | 2019-05-29 16:39 | PROGRESS NOTE ---
DATE: 05/29/2019 SUBJECTIVE: Patient has no major complaints. OBJECTIVE: Vital signs: Blood pressure 213/81, heart rate of 63, respiratory rate of 16, temperature 97.2 degrees, 90% on room air. Cardiovascular: Regular rate and rhythm. Pulmonary: Bilateral breath sounds. Clear to auscultation. GI: Soft, nontender. Neurologic: She was pretty lethargic. I could not get her arouse too much. Yesterday she seemed like she was at least answering some questions. I cannot appreciate that right now. PROBLEM LIST: 1. Intractable nausea and vomiting. That seems to have resolved, but I do not know how much she has been challenged. We will give her clear liquids if she can tolerate. 2. Hypertensive emergency. She has been put on no medications for that. I guess she was n.p.o., I am not sure. In any case, we will get an MRI just to make sure she has not had a subtle stroke, although I do not know if that is going to be available tomorrow, but we will try. We can do diffusion-weighted imaging without contrast since she is a dialysis patient. 3. Hypertension, stable currently. We will continue her regular medications and follow. Ensure this is not posterior reversibility syndrome and we will continue to monitor closely. cc: Deric Buchanan MD
[2019-05-29 17:11] LABS: ALLEN TEST NO; BE 12.3 mmoll (-3.0-3.0); BLOOD TYPE ARTERIAL; METHB 0.7 % (0.0-1.5); SAMPLE BLOOD; SAO2 79.1 % (95.0-100.0); THB 13.9 g/dL (11.5-17.4); pH(98.6) 7.46 (7.35-7.45)
[2019-05-29 17:13] LABS: PCO2(98.6) 54 mmHg (35-45)
[2019-05-29 17:14] LABS: MODALITY ROOM AIR; O2HB 77.1 % (95.0-99.0); PO2(98.6) 39 mmHg (60-100)
[2019-05-29] MEDS: NON-FORMULARY BULK MED BOTH EYES SCH ×2 (17:14→22:07)
[2019-05-29] MEDS: APRESOLINE PO SCH (17:16)
[2019-05-29] MEDS: NITROGLYCERIN TOP SCH (17:17)
--- NOTE | 2019-05-29 18:19 | NEPHROLOGY CONSULTATION ---
DATE: 05/29/2019 CONTINUATION: OBJECTIVE: Vital Signs: Blood pressure 172/105, heart rate 60, respirations 23, afebrile. Generally: Again, actively hallucinating but no acute distress. Skin: Warm and dry. Conjunctivae are pink. Corneal arcus is present. Oropharynx is dry. Neck: Neck veins are not appreciated. Trachea is midline. Heart: Regular but distant. She is difficult to examine because of motion. Lungs: Have equal breath sounds. Shallow. No crackles. Abdomen: Soft, nontender. Bowel sounds present. Extremities: No edema, clubbing, or cyanosis. IMPRESSIONS: 1. Chronic kidney disease 5D. She had her routine dialysis yesterday. Electrolytes/acid base/anemia/volume status all in target. 2. Hypertension. Poorly controlled. She is receiving Apresoline 100 mg 3 times a day, Nitrol paste. Heart rate is somewhat suppressed at 16 beats per minute so I am reluctant to add a beta kendall. I will add lisinopril and calcium channel kendall. cc: David Espinoza MD
--- NOTE | 2019-05-29 18:25 | NEPHROLOGY CONSULTATION ---
DATE: 05/29/2019 REASON FOR CONSULTATION: Assistance with ESRD and dialysis. HISTORY OF PRESENT ILLNESS: Ms. Kline is an 78-year-old woman who is well known to us. She has severe peripheral vascular disease, coronary disease, diabetes, hypertension. She is on hemodialysis. She has had a lower extremity amputation in the past. She was brought into the hospital for nausea and vomiting. At the time of my exam, she is actively hallucinating, stating she is eating some candy. She does admit that she had nausea and vomiting and "a cold." She is not able to elaborate any further. PAST MEDICAL HISTORY: As above. HOME MEDICATIONS: Include latanoprost, alprazolam, citalopram, calcium acetate, Simbrinza eye drops, cinacalcet, atorvastatin, carvedilol, hydralazine, aspirin, lisinopril. ALLERGIES: None. SOCIAL HISTORY: She lives with her who has end-stage cardiomyopathy. She has dialysis every Thursday, and Thursday. FAMILY HISTORY: Otherwise noncontributory. REVIEW OF SYSTEMS: Otherwise noncontributory. INCOMPLETE REPORT -- DICTATION ENDS HERE. cc: David Espinoza MD
[2019-05-29] MEDS: LIPITOR PO SCH (22:07)
[2019-05-29] MEDS: XALATAN 0.005% OPH SOLN BOTH EYES SCH (22:07)
[2019-05-30] MEDS: NORVASC PO SCH ×2 (04:04→10:57)
[2019-05-30] MEDS: PRINIVIL PO SCH ×2 (04:05→10:56)
[2019-05-30] MEDS: NITROGLYCERIN TOP SCH ×4 (04:06→15:51)
[2019-05-30] MEDS: XANAX PO SCH ×2 (04:06→20:48)
[2019-05-30] MEDS: APRESOLINE PO SCH ×4 (04:07→20:52)
[2019-05-30 05:47] LABS: ALLEN TEST YES; BE 9.6 mmoll (-3.0-3.0); BLOOD TYPE ARTERIAL; METHB 0.5 % (0.0-1.5); O2(CT) 19.6 mL/dL (15.0-23.0); PO2(98.6) 50 mmHg (60-100); SAMPLE BLOOD; SAO2 87.8 % (95.0-100.0); THB 16.3 g/dL (11.5-17.4); pH(98.6) 7.44 (7.35-7.45)
[2019-05-30 05:48] LABS: MODALITY ROOM AIR
[2019-05-30 05:49] LABS: PCO2(98.6) 53 mmHg (35-45)
[2019-05-30] MEDS: PRILOSEC PO SCH ×3 (05:58→20:52)
[2019-05-30 06:23] LABS: BASO# 0.06 X1000 (0.0-0.2); BASO% 0.9 % (0.0-0.8); EOS# 0.28 X1000 (0.0-0.7); EOS% 4.3 % (0.0-10.0); HEMATOCRIT 41.7 % (37.0-47.0); HEMOGLOBIN 13.1 g/dL (12.0-16.0); LYMPH# 1.19 X1000 (1.2-3.4); LYMPH% 18.1 % (20.5-51.1); MCH 26.6 PG (27-31); MCHC 31.4 g/dL (33-37); MCV 84.8 FL (81-99); MONO# 0.55 X1000 (0.11-0.59); MONO% 8.4 % (1.7-9.3); MPV 10.3 FL (7.4-10.4); NEUT# 4.49 X1000 (1.4-6.5); NEUT% 68.3 % (42.2-75.2); PLT 184 X1000 (130-400); RBC 4.92 XMIL (4.2-5.4); RDW 19.3 % (11.5-14.5); WBC 6.57 X1000 (4.8-10.8)
[2019-05-30 06:46] LABS: CALCIUM 10.2 mg/dL (8.8-10.2); CREATININE 4.3 mg/dL (0.5-0.9); POTASSIUM 4.8 mmol/L (3.5-5.1)
[2019-05-30 07:35] LABS: HEMOGLOBIN A1C 5.6 % (4.8-6.0)
[2019-05-30] MEDS: CELEXA PO SCH (10:56)
[2019-05-30] MEDS: ASPIRIN PO SCH (10:56)
[2019-05-30] MEDS: NON-FORMULARY BULK MED BOTH EYES SCH ×3 (10:57→16:38)
[2019-05-30] MEDS: HEPARIN SUBQ SCH ×2 (10:57→20:48)
[2019-05-30] MEDS: PHOSLO PO SCH ×2 (11:06→15:20)
--- NOTE | 2019-05-30 13:16 | NEPHROLOGY PROGRESS NOTE ---
DATE: 05/30/2019 SUBJECTIVE: She is more alert today. She is not hallucinating. She did not eat her breakfast. Answers my questions appropriately, but she does not know how she got to the hospital. OBJECTIVE: Blood pressure 168/66, heart rate 64, respiration 18, afebrile. Generally in no acute distress. Skin is warm and dry. Neck veins are not visible. Oropharynx is dry. Heart is regular. Lungs are equal, no crackles, shallow.Abdomen: Soft. Bowel sounds present. Extremities: No edema, clubbing or cyanosis. IMPRESSION: 1. Chronic kidney disease, 5D. Her routine dialysis treatment day is tomorrow. Electrolytes/acid base/anemia all in target. 2. Hypertension. Blood pressure is improving with current therapy. cc: David Espinoza MD
--- NOTE | 2019-05-30 15:03 | Diag Imaging Result Doc PS360 ---
EXAM: CT ANGIOGRM PULMONARY ARTERIES INDICATION: chest pain TECHNIQUE: This exam was performed using automated exposure control, adjustment of mA or kV according to patient size, and/or use of iterative reconstruction technique. Thin section axial images and 3-D MIPS were obtained. COMPARISON: 06/13/2017 FINDINGS: There is no evidence of pulmonary embolism. There is patchy aortic atherosclerotic calcification. There is no evidence of aortic aneurysm or dissection. There is cardiomegaly that is stable. There are a few calcified hilar lymph nodes indicating prior granulomatous disease. There is no significant lymphadenopathy appreciated, otherwise. There is air and fluid in the esophagus suggesting possible gastroesophageal reflux. The esophageal wall appears to be less thickened than on the previous CT of the abdomen and pelvis performed yesterday. This is probably because of this more distended. Limited views of the upper abdomen are essentially stable, otherwise. There are bilateral infiltrates that are predominantly interstitial indicating edema. There are a few scattered calcified granulomata. There is a very small right pleural effusion and there is trace fluid on the left. There is bibasilar atelectasis that is more prominent on the right. IMPRESSION: 1.Pulmonary edema as described with a small right effusion and a trace left effusion with associated atelectasis. 2.Gas and fluid in the esophagus suggesting gastroesophageal reflux. However, the esophageal wall appears to be less thickened than yesterday's abdominal CT. 3.No evidence of pulmonary embolism. Electronically signed by Cosmo Miramontes 05/30/2019 3:01 PM
--- NOTE | 2019-05-30 17:42 | PROGRESS NOTE ---
DATE: 05/30/2019 SUBJECTIVE: The patient has no major complaints. She awakens and opens her eyes and looks around, but that is about it. No complaints of shortness of breath, chest pain, anything to that effect, but I am not sure what her baseline level of cognitive function is. OBJECTIVE: Vital Signs: Blood pressure is 155/59, heart rate 70s , temperature 98.7 degrees. Cardiovascular: Regular rate and rhythm. Pulmonary: Bilateral breath sounds, clear to auscultation. Gastrointestinal: Soft, nontender, nondistended. Bowel sounds are positive. DIAGNOSTIC DATA: White count 6.5, hemoglobin and hematocrit of 13 and 41, platelets 184,000. A pH of 7.44, pCO2 of 53, PaO2 of 50, creatinine of 4.3. CTA showed pulmonary edema and some right effusion and GERD. No PE. So, she has some volume overload. PROBLEM LIST: 1. Intractable nausea and vomiting. Well, that seems better. She looks like she has gotten really severe GERD. I am going to bump up her Prilosec to twice a day and make sure she has got aspiration precautions and reflux precautions. 2. Volume overload state. We will need to work on dialysis at a negative level if possible based on her CT findings. 3. Uncontrolled hypertension. She is on a fairly decent amount of medications. We will adjust those accordingly. I am going to switch her nitroglycerin paste to Imdur. She is on Norvasc. She is on lisinopril. She is on hydralazine. All these are at max dose. I have added the Imdur. We may need to add further antihypertensives. 4. Encephalopathy. I am not quite sure what her baseline is. With her hypertension, I am going to evaluate for stroke in the morning. 5. End-stage renal disease. We will continue dialysis and follow closely. cc: Deric Buchanan MD [facility]
[2019-05-30] MEDS: IMDUR PO SCH (19:28)
[2019-05-30] MEDS: XALATAN 0.005% OPH SOLN BOTH EYES SCH (20:48)
[2019-05-30] MEDS: LIPITOR PO SCH (20:48)
[2019-05-31] MEDS: PHOSLO PO SCH ×2 (06:10→13:28)
[2019-05-31] MEDS ORDERED: NS 2,000 ML MISC PRN (06:17)
[2019-05-31] MEDS ORDERED: TIGHT: 0.2 ML/HR FOR DIALYSIS MISC PRN (06:17)
[2019-05-31] MEDS ORDERED: HEPARIN IV PRN (06:17)
[2019-05-31 07:34] LABS: BASO# 0.04 X1000 (0.0-0.2); BASO% 0.6 % (0.0-0.8); EOS# 0.32 X1000 (0.0-0.7); EOS% 4.8 % (0.0-10.0); HEMATOCRIT 39.6 % (37.0-47.0); HEMOGLOBIN 12.6 g/dL (12.0-16.0); LYMPH# 1.33 X1000 (1.2-3.4); LYMPH% 20.1 % (20.5-51.1); MCH 26.8 PG (27-31); MCHC 31.8 g/dL (33-37); MCV 84.1 FL (81-99); MONO# 0.53 X1000 (0.11-0.59); NEUT# 4.41 X1000 (1.4-6.5); NEUT% 66.5 % (42.2-75.2); PLT 176 X1000 (130-400); RBC 4.71 XMIL (4.2-5.4); RDW 18.9 % (11.5-14.5); WBC 6.63 X1000 (4.8-10.8)
[2019-05-31 07:56] LABS: CREATININE 5.6 mg/dL (0.5-0.9); POTASSIUM 4.4 mmol/L (3.5-5.1)
--- NOTE | 2019-05-31 11:15 | PROGRESS NOTE ---
DATE: 05/31/2019 SUBJECTIVE: Patient has no major complaints. OBJECTIVE: Vital Signs: Blood pressure 169/56, heart rate of 64, respiratory rate of 14, temperature 97.6 degrees, satting 98% on 2 L. Cardiovascular: Regular rate and rhythm. Pulmonary: Bilateral breath sounds. Clear to auscultation. GI: Soft, nontender, nondistended. Bowel sounds are positive. Neurologic: She is much more awake today. No more complaints, but she is still somewhat lethargic. LABORATORY DATA: White count is 6.6, hemoglobin and hematocrit 12 and 39, platelets 176. BUN and creatinine 61 and 5.6. PROBLEM LIST: 1. Intractable nausea, vomiting. She seems to be doing better. Continue proton pump inhibitor and follow volume overload. We will do dialysis today per Renal recommendations. Hopefully, get some extra volume off. 2. Hypertension is still not completely controlled, but is definitely better controlled than when she first arrived. We added Imdur to the rest of her medications. 3. Encephalopathy. She is I think improving slowly over time. 4. Acute and hypoxic respiratory failure likely due to volume. There is no pulmonary embolus. There is no pneumonia. Continue dialysis and follow. Repeat her chest x-ray tomorrow. 5. Disposition: Pending her clinical status. Work on trying to get her up and about. cc: Deric Buchanan MD
[2019-05-31] MEDS: ZOFRAN IV PRN (11:20)
[2019-05-31] MEDS: PRINIVIL PO SCH (13:25)
[2019-05-31] MEDS: NORVASC PO SCH (13:25)
[2019-05-31] MEDS: CELEXA PO SCH (13:25)
[2019-05-31] MEDS: IMDUR PO SCH (13:25)
[2019-05-31] MEDS: ASPIRIN PO SCH (13:25)
[2019-05-31] MEDS: HEPARIN SUBQ SCH ×2 (13:26→22:27)
[2019-05-31] MEDS: NON-FORMULARY BULK MED BOTH EYES SCH ×3 (13:27→19:45)
[2019-05-31] MEDS: APRESOLINE PO SCH ×4 (13:27→22:28)
[2019-05-31] MEDS: PRILOSEC PO SCH ×2 (13:28→22:25)
--- NOTE | 2019-05-31 14:23 | Diag Imaging Result Doc PS360 ---
CT HEAD W/O CONTRAST - 05/31/2019 INDICATION: CVA COMPARISON: 05/29/2019 FINDINGS: There is stable mild cerebral white matter chronic microvascular disease. The ventricles and sulci are normal in size and contour. No intracranial mass or hemorrhage. The skull is intact. Stable right mastoidectomy changes. Otherwise the sinuses are clear. IMPRESSION: No acute disease or change from prior. This exam was performed using automated exposure control, adjustment of mA or kV according to patient size, and/or use of iterative reconstruction technique Electronically signed by Matthew Dong 05/31/2019 2:21 PM
--- NOTE | 2019-05-31 17:52 | NEPHROLOGY PROGRESS NOTE ---
DATE: 05/31/2019 TIME SEEN: 0725. SUBJECTIVE: Miss Kline is resting quietly in bed. She is more awake and alert. She does recognize myself. She states that she is just not sure why she is not feeling well, but feels better than yesterday. OBJECTIVE: Her most recent vital signs: Temperature 98.1 degrees ,blood pressure 137/26, heart rate 62, respirations 14. She is on 2 L nasal cannula. Last recorded saturation 100%. She has had 380 in. She has had 0 out. LABORATORIES: Sodium 139, potassium 4.4, chloride 94, CO2 of 29, BUN 61, creatinine 5.6, glucose is 107. Her anion gap is 16. Her calcium is 10. White count 6.63, hemoglobin 12.6, hematocrit 39.6 with a platelet count of 176,000. STUDIES: Head CT is currently pending. PHYSICAL EXAMINATION: General: This is an 78-year-old female. She is resting quietly in bed. She is more awake and alert today. She does recognize people around her. Skin: Warm and dry. HEENT: Normocephalic, atraumatic. Conjunctivae are is pale pink. She has GLADYS. Mucous membranes are dry. Neck: Supple. Trachea midline. No evidence of JVD. Cardiovascular: She is regular rate and rhythm. No gallop appreciated. Lungs: Clear to auscultation bilaterally. Equal excursion. She is on 2 L nasal cannula. Abdomen: Soft, nontender. Positive bowel sounds. Genitourinary: Not inspected. Minimal void with dialysis assist. Extremities: The patient has a left upper arm fistula. This is dry and intact with good thrill. No edema present. No clubbing or cyanosis. Neurological: As above. ASSESSMENT AND PLAN: 1. Chronic kidney disease stage 5D. The patient is due for her routine dialysis treatment today. We will place her on a 2 K bath. She is to dialyze for 3.5 hours. We will attempt to pull her to her outpatient dry weight. 2. Electrolytes and acid-base balance with correction on dialysis. 3. Anemia. This is in target. 4. Altered mental status. Improved. 5. Dysphagia. Consult GI. rg I would to thank you for allowing us to follow with this patient. Dictated by SHAHIDA Young for David Espinoza MD Face to face encounter, data reviewed, discussed with Julio Cesar Swartz on 05/31/19. I agree with the above assessment and plan of care. cc: SHAHIDA Young MD [facility]
[2019-05-31] MEDS: XANAX PO SCH (22:25)
[2019-05-31] MEDS: LIPITOR PO SCH (22:27)
[2019-05-31] MEDS: XALATAN 0.005% OPH SOLN BOTH EYES SCH (22:27)
[2019-06-01] MEDS: PHOSLO PO SCH ×4 (06:27→16:45)
--- NOTE | 2019-06-01 06:38 | Diag Imaging Result Doc PS360 ---
CHEST-PORTABLE - 06/01/2019 INDICATION: dyspnea COMPARISON: 05/28/2019 FINDINGS: Stable pacemaker. Stable cardiomegaly and pulmonary vascular congestion. There is mild interstitial pulmonary edema. No large pleural effusion. IMPRESSION: Cardiomegaly and pulmonary edema. No significant change from prior. Electronically signed by Matthew Dong 06/01/2019 6:36 AM
[2019-06-01 07:22] LABS: BASO# 0.06 X1000 (0.0-0.2); BASO% 0.9 % (0.0-0.8); EOS% 4.5 % (0.0-10.0); HEMATOCRIT 41.1 % (37.0-47.0); LYMPH# 1.75 X1000 (1.2-3.4); LYMPH% 26.2 % (20.5-51.1); MCH 26.7 PG (27-31); MCHC 31.6 g/dL (33-37); MCV 84.6 FL (81-99); MONO# 0.62 X1000 (0.11-0.59); MONO% 9.3 % (1.7-9.3); MPV 9.8 FL (7.4-10.4); NEUT# 3.95 X1000 (1.4-6.5); NEUT% 59.1 % (42.2-75.2); PLT 189 X1000 (130-400); RBC 4.86 XMIL (4.2-5.4); RDW 18.9 % (11.5-14.5); WBC 6.68 X1000 (4.8-10.8)
[2019-06-01 07:51] LABS: CREATININE 3.8 mg/dL (0.5-0.9); POTASSIUM 4.1 mmol/L (3.5-5.1)
[2019-06-01 07:52] LABS: ALBUMIN 3.3 g/dL (3.5-5.0); CALCIUM 9.7 mg/dL (8.8-10.2); PHOSPHORUS 3.8 mg/dL (2.7-4.5)
--- NOTE | 2019-06-01 09:14 | NEPHROLOGY PROGRESS NOTE ---
DATE: 06/01/2019 TIME SEEN: 0720. SUBJECTIVE: Ms. Kline is resting quietly in bed. She is currently getting ready to have an echocardiogram performed. She states that she is feeling better without complaints. OBJECTIVE: Vital Signs: Temperature 98.5 degrees, blood pressure 135/58, heart rate 70, respirations 16. She is on 2 L nasal cannula. Last recorded saturation 99%. She has had 0 recorded in. She had 3.2 L removed on dialysis yesterday. LABS: Sodium 139, potassium 4.1, chloride 96, CO2 28, BUN 35, creatinine 3.8, glucose 64, anion gap of 15, calcium 9.7, phosphorus 3.8, albumin is 3.3. White count 6.68, hemoglobin 13, hematocrit is 41.1, with a platelet count of 189,000. PHYSICAL EXAMINATION: General: This is an 78-year-old female who is resting quietly in bed, awake and alert. Continues to improve every day. Skin: Warm and dry. HEENT: Normocephalic, atraumatic. Conjunctivae pale pink. She has GLADYS. Mucous membranes are dry. Neck: Supple. Trachea midline. No evidence of JVD. Cardiovascular: She has a regular rate and rhythm. She does have a systolic murmur today. Lungs: Clear to auscultation bilaterally. Equal excursion on O2. Abdomen: Soft, nontender. Positive bowel sounds. Genitourinary: Not inspected. Hemodialysis assist. Extremities: Have no edema. No clubbing or cyanosis. The patient has a fistula to the left upper arm with palpable thrill. Neurological: As mentioned above. ASSESSMENT AND PLAN: 1. Chronic kidney disease stage 5D. She tolerated her dialysis treatment yesterday. No indications for intervention today. We will plan for dialysis in the a.m. 2. Electrolytes, acid-base balance and anemia. These are all acceptable. 3. Dysphagia with a history of esophageal stricture. GI consult on board. 4. Altered mental status. This continues to improve. I would like to thank you for allowing us to follow with this patient. Dictated by SHAHIDA Young for David Espinoza MD Face to face encounter, data reviewed, discussed with Julio Cesar Swartz on 06/01/19. I agree with the above assessment and plan of care. cc: SHAHIDA Young MD [facility]
[2019-06-01] MEDS ORDERED: CALMOSEPTINE OINTMENT TOP PRN (10:11)
[2019-06-01] MEDS ORDERED: DIPRIVAN 1% ONE (10:11)
[2019-06-01] MEDS ORDERED: XYLOCAINE-MPF 2% ONE (10:11)
--- NOTE | 2019-06-01 10:32 | GASTROENTEROLOGY CONSULTATION ---
DATE: 06/01/2019 REASON FOR CONSULTATION: Nausea, vomiting. History of dysphagia requiring esophageal dilation. HISTORY OF PRESENT ILLNESS: Ms Reva Kline is an 78-year-old woman with past medical history of hypertension, hyperlipidemia, diabetes type 2, end-stage renal disease, on hemodialysis Tuesdays, , and Saturdays, who presented with 1 day of intractable nausea and vomiting. History is obtained from the chart given patient's underlying dementia. She has been having intermittent nausea, vomiting that was persistent until yesterday which improved significantly. However, patient continues to take poor oral intake. On presentation, she was noted to have hypertensive urgency and has been dialyzed. Her last EGD was in 06/04/2017 which showed a widely patent esophageal stricture which was dilated with a 60-Kinyarwanda Rey dilator. There was also some mild duodenitis. EGD and colonoscopy in July 2016 showed a hiatal hernia as well as esophageal stricture. The colon appeared normal. PAST MEDICAL HISTORY: As per HPI. PAST SURGICAL HISTORY: She has had a ICD placed for foot amputation, bilateral hip surgery. ALLERGIES: No known drug allergies. FAMILY HISTORY: Positive for coronary artery disease in mother. SOCIAL HISTORY: No smoking alcohol or drug use. MEDICATIONS: Include Xanax, aspirin, atorvastatin, carvedilol, citalopram, hydralazine, lisinopril, latanoprost eyedrops. PHYSICAL EXAMINATION: Vital Signs: Temperature 98 degrees, heart rate of 59, respiratory rate 18, blood pressure 148/52, O2 saturation 95% on 2 L nasal cannula. General: The patient is awake, in no acute distress. HEENT: Sclerae anicteric. Extraocular motor intact. Neck: Supple. No JVD or lymphadenopathy. Cardiac: Regular rate and rhythm. No murmurs, rubs, or gallops. Lungs: Clear auscultation bilaterally. Abdomen: Soft, nontender, nondistended. Normoactive bowel sounds. Extremities: No clubbing, cyanosis, or edema. Neurologic: Moving all extremities symmetrically, bilaterally. She is confused. She does have a left upper extremity AV fistula. LABS: White count of 6.6, hemoglobin 3.0, platelets of 189,000. Sodium 139, potassium 4.1, chloride of 96, bicarb 28, BUN of 35, creatinine of 3.8 from 5.6 yesterday, glucose is 64, albumin of 3.3. LFTs are within normal limits. Lipase of 120. IMAGING: CT of the abdomen and pelvis without contrast showed constipation, thickening of the distal esophageal wall suggesting possible esophagitis, mild cholelithiasis. Head CT shows stable chronic changes. No evidence of acute intracranial pathology. Chest x-ray on 05/28, stable cardiomegaly. No definite acute pathology by plain radiograph. ASSESSMENT AND PLAN: Ms. Reva Kline is an 79-year-old woman with history of hypertension, end- stage renal disease on hemodialysis, status post ICD and diabetes who presented with intractable nausea, vomiting in the setting of hypertensive urgency. Her blood pressure is improved. However, she has not been taking in much orally. She does have a remote history of esophageal stricture as well as duodenitis. She has been dilated in the past, last was in 2017. She is currently on a proton pump inhibitor 40 mg b.i.d. and Zofran IV as needed for her nausea, vomiting. We will plan for a diagnostic EGD today. She is currently NPO. Further recommendations postprocedure. # Nausea and vomiting # HTN # ESRD on HD # History of esophageal stricture Thank you for this consult. We will follow with you. Please call with any questions or concerns. [facility]
--- NOTE | 2019-06-01 10:39 | ENDOSCOPY OPERATIVE NOTE ---
[facility] ENDOSCOPY OPERATIVE NOTE , PATIENT: Reva Kline ADMISSION DATE: 06/01/2019 MR#: [id number] : 1940 EGD PROCEDURE REPORT PROCEDURE DATE: 06/01/2019 SURGEON: Eric Gallegos MD STATUS: inpatient [facility] ADMINISTRATOR: PREOPERATIVE DIAGNOSIS: The patient is a 78 yr old female here for an EGD due to dysphagia, pharynge al-esophageal , nausea, and vomiting. PROCEDURE PERFORMED: EGD w/ biopsy MEDICATIONS: Per Anesthesia TOPICAL ANESTHETIC: none CONSENT: The patient understands the risks and benefits of the procedure and understands that these r isks include, but are not limited to: sedation, allergic reaction, infection, perforation and/or bleeding. Alternative means of evaluation and treatment include, among others: physical exam, x-rays, and/or surgical intervention. The patient elects to proceed with this endoscopic procedure. HISORY AND PHYSICAL: 06/01/2019 function. Hand hygiene and appropriate measures for infection prevention was taken. After the risks, benefits and alternatives of the procedure were thoroughly explained, Informed consent was verified, confirmed and timeout was successfully executed by the treatment team. The patient was anesthetized with topical anesthesia and the BG28-y60 ([id number]) endoscope was introduced through the mouth and advanced to the second portion of the duoden um. Retroflexion was performed in the stomach and revealed no abnormalities. The gastroscope was then slowly withdraw n and removed. ESOPHAGUS: Four columns non-bleeding, linear ulcerated mucosa was found in the mid to distal esophagu s with white plaques. Biopsies were taken at the center of the ulcers to evaluate for infectious etiology. STOMACH: Mild gastritis (inflammation) was found in the gastric antrum. A biopsy was performed using a cold biopsy forceps. Sample sent for histology. DUODENUM: The duodenum was normal. SPECIMENS REMOVED: Specimen Removed ADVERSE EVENTS: There were no complications. POSTOPERATIVE DIAGNOSIS: 1. Four colums of ulcerated esophageal mucosa was found from the mid to distal esophagus with whit plaques; biopsies were taken 2. Gastritis (inflammation) was found in the gastric antrum; biopsy was performed 3. The duodenum was normal RECOMMENDATIONS: 1. Await biopsy results 2. Renal diet REPEAT EXAM: Eric Gallegos MD eSigned: Eric Gallegos MD 06/01/2019 10:38 AM cc: PATIENT NAME: Reva Kline MR#: [id number]
[2019-06-01] MEDS: IMDUR PO SCH (11:14)
[2019-06-01] MEDS: CELEXA PO SCH (11:15)
[2019-06-01] MEDS: APRESOLINE PO SCH ×3 (11:19→20:45)
[2019-06-01] MEDS: HEPARIN SUBQ SCH ×2 (11:19→20:44)
[2019-06-01] MEDS: ASPIRIN PO SCH (11:20)
[2019-06-01] MEDS: NORVASC PO SCH (11:20)
[2019-06-01] MEDS: NON-FORMULARY BULK MED BOTH EYES SCH ×3 (11:21→16:46)
[2019-06-01] MEDS: PRILOSEC PO SCH ×2 (11:21→20:44)
[2019-06-01] MEDS: PRINIVIL PO SCH (11:21)
--- NOTE | 2019-06-01 14:00 | ECHO REPORT ---
ORDER DATE: 06/01/2019 INDICATION: Volume shifts during hemodialysis. FINDINGS: 1. The right atrium appears normal in size at 3.8 cm. 2. Mild tricuspid regurgitation, RV systolic pressure of 37. 3. Normal RV size and systolic function. 4. No significant pulmonic insufficiency. 5. Left atrium may be mildly enlarged. It is difficult to visualize. 6. No mitral valve prolapse. Mild mitral regurgitation. No mitral stenosis. Mitral annular calcification is noted. 7. Normal LV size, end-diastolic dimension of 4.5 cm. Moderate left ventricular hypertrophy with posterior and interventricular septal wall thicknesses of 1.5 cm each. Normal LV systolic function. Estimated EF 60% to 65% with normal wall motion. 8. The aortic valve opens well. No evidence of stenosis or insufficiency. 9. The aorta appears normal in visualized segments. 10. No pericardial effusion seen. cc: MD Shoshana Lowe CRNP
--- NOTE | 2019-06-01 14:45 | PROGRESS NOTE ---
DATE: 06/01/2019 SUBJECTIVE: Patient has no major complaints. OBJECTIVE: Blood pressure is 152/73, heart rate of 62, respiratory rate is 16, temperature 98.2 degrees, 100% on 2 L.Cardiovascular: Regular rate and rhythm. Pulmonary: Bilateral breath sounds clear to auscultation. Gastrointestinal: Soft, nontender, nondistended. Neurological: She is a bit confused, though. She says she was talking to her grandchild who was in the room; there was nobody in the room, and she was clearly having a conversation with him. LABORATORY DATA: White count 6.6, hemoglobin 13, hematocrit 41, platelets 189,000. Creatinine 3.8. PROBLEM LIST: 1. Intractable nausea/vomiting, which I think that has actually resolved. She is on a PPI. She had esophageal thickening, so Gastroenterology has been consulted per Dr. Espinoza, which is very reasonable. Has a history of stricture, so she underwent endoscopy today, showing ulcerated esophagus which was kind of whitish. She had white plaques so am not sure if this was Aria; maybe it did not look like Aria. I think it is reasonable maybe to start treatment for that. We will discuss with dr conde but in any case, awaiting biopsy results. Her diet has been advanced. She has been doing okay. 2. Volume overload. She seems stable. We will continue diuresis per Nephrology recommendations. 3. Hypertension which is still elevated, but overall improved. DISPOSITION: I am not sure what her baseline level of functioning is. Apparently I think she lives at home and has caretakers, but she is pretty weak from all this. We will work on trying to start getting her up and see how she does and then can decide about being able to go home. PT has not seen her at this point. cc: Deric Buchanan MD [facility]
[2019-06-01] MEDS: MYCOSTATIN SUSP PO SCH ×2 (16:45→20:44)
[2019-06-01] MEDS: LIPITOR PO SCH (20:44)
[2019-06-01] MEDS: XALATAN 0.005% OPH SOLN BOTH EYES SCH (20:44)
[2019-06-01] MEDS: XANAX PO SCH (20:45)
[2019-06-02] MEDS: PHOSLO PO SCH ×3 (06:09→17:00)
[2019-06-02] MEDS ORDERED: NS 2,000 ML MISC PRN (06:11)
[2019-06-02] MEDS ORDERED: TIGHT: 0.2 ML/HR FOR DIALYSIS MISC PRN (06:11)
[2019-06-02] MEDS ORDERED: HEPARIN IV PRN (06:11)
[2019-06-02] MEDS: NORVASC PO SCH (10:15)
[2019-06-02] MEDS: PRILOSEC PO SCH ×2 (10:15→21:38)
[2019-06-02] MEDS: PRINIVIL PO SCH (10:15)
[2019-06-02] MEDS: NON-FORMULARY BULK MED BOTH EYES SCH ×3 (10:15→18:50)
[2019-06-02] MEDS: MYCOSTATIN SUSP PO SCH ×4 (10:15→21:38)
--- NOTE | 2019-06-02 14:20 | PROGRESS NOTE ---
DATE: 06/02/2019 SUBJECTIVE: Ms Kline was put in on 05/29/2019. She is a patient of Dr. Rick Anderson. An 78- year-old with history of end-stage renal disease, on dialysis Tuesdays, , and Saturdays. Has a history of hypertension, diabetes mellitus type 2, presented to the emergency department with a 1-day history of having worsening nausea and vomiting. Patient states that she cannot keep anything down, was not feeling well. Most of the history is obtained from family members. At the time of examination, patient denied headache, fever, chills, chest pain, shortness of breath, or any weight changes. PAST MEDICAL HISTORY: 1. End-stage renal disease on dialysis Tuesdays, , and Saturdays. 2. Hypertension. 3. Diabetes mellitus type 2. PAST SURGICAL HISTORY: ICD, forefoot amputation, bilateral hip surgery. Admitted with intractable nausea and vomiting, hypertensive urgency, end-stage renal disease, diabetes mellitus type 2. She reports she feels a little better. She does not report any nausea at the present time. She got a little bit of her lunch down. Her daughter was at the bedside. PHYSICAL EXAMINATION: Vital signs: Temperature 97.7 degrees, pulse 63, respirations 15, blood pressure 133/42. HEENT: Pupils were equal. Neck: No distended neck veins. Lungs: Are clear anterolateral. Cardiovascular: Regular rhythm and rate without murmur or S3. Abdomen: Soft, nondistended, nontender. No pedal edema. Urine output, I think this was from dialysis, she had 2000 mL removed. DIAGNOSTIC DATA: Echocardiogram done yesterday. Left ventricular size and end-diastolic dimension was 4.5 cm. Moderate left ventricular hypertrophy. Posterior and intraventricular septal wall thickness of 1.5 cm each. Normal left ventricular function. Ejection fraction 60% to 65%. Aortic valve opens well. Did not see any significant valvular dysfunction. Normal RV size and systolic function. ASSESSMENT AND PLAN: 1. Chronic kidney disease stage 5D. Tolerating her dialysis treatment. No indications for intervention today. Dr. Espinoza is following her. Plan for dialysis tomorrow morning. 2. Electrolytes, acid base and anemia, all acceptable. 3. Dysphagia and history of esophageal stricture. GI consult on board. 4. Altered mental status by report, it seems to be better. 5. Nausea, which appears to have improved as well. She said she had a bowel movement yesterday. REVIEW OF HER ORDERS: She is on Norvasc 10 mg a day, aspirin 81 mg a day, Lipitor 40 mg at bedtime, calcium acetate 1334 mg p.o. daily, Celexa 20 mg daily, hydralazine 100 mg I think 3 times a day, isosorbide mononitrate 30 mg a day, Prinivil 40 mg a day, Prilosec 40 mg b.i.d. REVIEW OF LABORATORY DATA: Review of her blood pressures, they look good, 104/53, 135/58, 90/56, 127/59, 133/42. Her lab was reviewed and hematocrit 41, hemoglobin 13. Blood sugars 61, 90, 104, 82. Electrolytes: Sodium 139, potassium 4.1, chloride 96, BUN 35, creatinine 3.8, and albumin was 3.3, calcium 9.7. cc: Carlton Oquendo MD
[2019-06-02] MEDS: HEPARIN SUBQ SCH ×2 (15:08→21:38)
[2019-06-02] MEDS: APRESOLINE PO SCH ×3 (15:12→21:39)
[2019-06-02] MEDS: ASPIRIN PO SCH (15:13)
[2019-06-02] MEDS: IMDUR PO SCH (15:14)
[2019-06-02] MEDS: CELEXA PO SCH (15:14)
--- NOTE | 2019-06-02 19:52 | GASTROENTEROLOGY PROGRESS NOTE ---
DATE: 06/02/2019 SUBJECTIVE: Patient resting in bed. She is currently sleepy as per the patient's nurse at bedside. No documented nausea or vomiting. She had her breakfast this morning. She moved her bowels yesterday. OBJECTIVE: Vitals: Temperature of 97.7, pulse rate of 63, respiratory rate 15, blood pressure 132/42, saturating 98% on room air. Body weight of 151 pounds 7 ounces. BMI 30.6 kg/m2. General Appearance: Moderately-built, lying in bed, currently sleepy. HEENT: No pallor. No icterus. Neck: Supple. Abdomen: Soft, nondistended. No guarding. Extremities: No cyanosis or clubbing. Neurological: She was sleeping. LABORATORY DATA: Her labs Hb and Hct yesterday was 13 and 41.1. PROCEDURES: Her EGD done yesterday showed evidence of ulcerated esophageal mucosa in the mid to distal esophagus with whitish plaques. Biopsies were taken which are currently pending. Gastritis was found on the gastric antrum, biopsied, which are currently pending. The duodenal bulb was normal. IMPRESSION AND PLAN: 1. Nausea and vomiting, which is improved. The patient will continue on PPIs. 2. Esophagitis, could be reflux and fungal. We will follow up on the biopsies. 3. Gastritis, which was biopsied yesterday. We will follow up the biopsy. She will continue PPIs for now. Avoid any NSAIDs. 4. Volume overload. This is being managed by the Nephrology team and the primary team. 5. Hypertension. This is being managed by the primary team. 6. The patient will continue on nystatin 4 times daily and Prilosec twice daily for now. She is on heparin for deep venous thrombosis prophylaxis with 5000 units subcutaneous q.12 hours. The patient is currently continuing on renal diet. 7. The above plans were discussed with the patient's nursing staff at bedside. All questions were answered. Please call with any further questions. cc: MD Rick Bingham MD [facility]
--- NOTE | 2019-06-02 20:29 | NEPHROLOGY PROGRESS NOTE ---
DATE: 06/02/2019 TIME SEEN: 0625. SUBJECTIVE: Ms. Kline is resting quietly in bed. Head of the bed is slightly elevated. She states that she is fine, though she is a little bit more lethargic today. OBJECTIVE/PHYSICAL EXAMINATION: Most recent vital signs: Temperature 98.3, blood pressure 127/59, heart rate 73, respirations 16. She is on room air. Last recorded saturation 98%. Intake and Output: She has had 340 in. She has had 0 recorded out, with need for dialysis. General: This is an 78-year-old female, resting quietly in bed. Her head of the bed is elevated. She appears in no acute distress. Skin: Warm and dry. HEENT: Normocephalic, atraumatic. Conjunctivae are pale. GLADYS. Mucous membranes are dry. Neck: Supple. Trachea midline. No JVD. Cardiovascular: Regular rate and rhythm. Soft systolic murmur present. Lungs: Clear to auscultation bilaterally. Equal excursion on room air. Abdomen: Soft, nontender. Positive bowel sounds. Genitourinary: Not inspected. Minimal void with dialysis assist. Extremities: With no edema. No clubbing or cyanosis. Fistula to the left upper arm, palpable thrill. Neurological: As mentioned above. LABORATORY DATA: No new labs reported. Her last potassium was 4.1 with a previous hemoglobin of 13. ASSESSMENT AND PLAN: 1. Chronic kidney disease stage 5D. The patient is due for her routine dialysis treatment today. We will place her on a 2K bath. She is to dialyze for 3-1/2 hours. We will attempt to pull her to her outpatient dry weight. 2. Electrolytes and acid-base balance: These have been acceptable with correction on dialysis. 3. Dysphagia with a history of esophageal stricture. The patient had an endoscopic procedure per Dr. Gallegos yesterday with findings of nonbleeding linear ulcerated mucosa and mild gastritis. Biopsies were taken, to be followed by primary care and GI. I would like to thank you for allowing us to follow with this patient. Dictated by SHAHIDA Young for David Espinoza MD Face to face encounter, data reviewed, discussed with Julio Cesar Swartz on 06/03/19. I agree with the above assessment and plan of care. cc: SHAHIDA Young MD [facility]
[2019-06-02] MEDS: XALATAN 0.005% OPH SOLN BOTH EYES SCH (21:38)
[2019-06-02] MEDS: LIPITOR PO SCH (21:38)
[2019-06-02] MEDS: XANAX PO SCH (21:39)
[2019-06-03] MEDS: PHOSLO PO SCH ×3 (06:24→17:14)
[2019-06-03] MEDS: HEPARIN SUBQ SCH ×2 (10:12→20:56)
[2019-06-03] MEDS: NON-FORMULARY BULK MED BOTH EYES SCH ×3 (10:14→17:14)
[2019-06-03] MEDS: MYCOSTATIN SUSP PO SCH ×4 (10:15→20:56)
[2019-06-03] MEDS: NORVASC PO SCH (10:17)
[2019-06-03] MEDS: PRINIVIL PO SCH (10:17)
[2019-06-03] MEDS: PRILOSEC PO SCH ×2 (10:18→20:55)
[2019-06-03] MEDS: CELEXA PO SCH (10:18)
[2019-06-03] MEDS: ASPIRIN PO SCH (10:18)
[2019-06-03] MEDS: APRESOLINE PO SCH ×4 (10:18→20:56)
[2019-06-03] MEDS: IMDUR PO SCH (10:19)
--- NOTE | 2019-06-03 18:26 | PROGRESS NOTE ---
DATE: 06/03/2019 SUBJECTIVE: The patient has been admitted since 05/29/2019, with intractable nausea and vomiting, and altered mental status. Since then, she feels much better. She is still having generalized weakness. OBJECTIVE: Vital Signs: Temperature 97.6 degrees, pulse 65 per minute, respiratory rate 18 per minute, blood pressure 92/32, pulse oximetry 100% on 2 L of oxygen via nasal cannula. General: Patient is alert and oriented x3. She does not appear to be in any acute distress. Cardiovascular System: First and second heart sounds are audible without any murmurs or gallops. Respiratory System: Bilateral lung air entry is moderately decreased, but there are no rales or rhonchi present on auscultation. Gastrointestinal system: Abdomen is soft and nondistended. Normal bowel sounds are present. Musculoskeletal System: No deformities are present. Range of motion in most of the joints is somewhat limited secondary to osteoarthritis. DIAGNOSTIC DATA: No new diagnostic data has been performed during the previous 24 hours. IMPRESSION: 1. Altered mental status with intractable nausea and vomiting, both of which have now improved. 2. Mild gastritis along with linear ulcerated mucosa on the esophagus found on esophagogastroduodenoscopy. 3. End-stage renal disease. 4. Hypertension. PLAN: The patient's condition has significantly improved. She has been getting proton pump inhibitors, along with nystatin suspension for her esophageal condition. Her overall condition, including blood pressure, has improved. She is having hemodialysis as per Nephrology inpatient. The patient's overall condition has improved, but she has significant deconditioning for which she was evaluated by Physical Therapy today. I believe she needs some physical therapy and possibly transfer to rehab facility sometime next week. cc: Rick Anderson MD
--- NOTE | 2019-06-03 19:11 | NEPHROLOGY PROGRESS NOTE ---
DATE: 06/03/2019 SUBJECTIVE: She is asleep but easily arousable. She states her dysphagia is improved and she has been able to eat. No vomiting. OBJECTIVE: Blood pressure 92/32, heart rate 65, respiration 18, afebrile. Generally in no acute distress. Skin is warm and dry. Oropharynx is dry. Neck veins are not visible. Heart is regular. No gallops. Lungs are equal. No crackles. Abdomen is soft, nontender. Bowel sounds present. Extremities: No edema, clubbing or cyanosis. IMPRESSION AND PLAN: Chronic kidney disease 5D. She had her routine hemodialysis done yesterday. She appears at baseline and probably at maximum hospital benefit, so I would certainly support her discharge at any time. She can resume her outpatient dialysis prescription. cc: David Espinoza MD
[2019-06-03] MEDS: LIPITOR PO SCH (20:56)
[2019-06-03] MEDS: XANAX PO SCH (20:56)
[2019-06-03] MEDS: XALATAN 0.005% OPH SOLN BOTH EYES SCH (20:56)
[2019-06-04] MEDS: PHOSLO PO SCH ×3 (06:14→16:46)
[2019-06-04 07:15] LABS: BASO# 0.06 X1000 (0.0-0.2); EOS# 0.47 X1000 (0.0-0.7); EOS% 7.5 % (0.0-10.0); HEMATOCRIT 36.9 % (37.0-47.0); HEMOGLOBIN 11.7 g/dL (12.0-16.0); LYMPH# 1.59 X1000 (1.2-3.4); LYMPH% 25.5 % (20.5-51.1); MCH 27.3 PG (27-31); MCHC 31.7 g/dL (33-37); MONO# 0.65 X1000 (0.11-0.59); MONO% 10.4 % (1.7-9.3); MPV 9.9 FL (7.4-10.4); NEUT# 3.46 X1000 (1.4-6.5); NEUT% 55.6 % (42.2-75.2); PLT 145 X1000 (130-400); RBC 4.29 XMIL (4.2-5.4); RDW 18.7 % (11.5-14.5); WBC 6.23 X1000 (4.8-10.8)
[2019-06-04 07:36] LABS: CALCIUM 10.1 mg/dL (8.8-10.2); CREATININE 4.3 mg/dL (0.5-0.9); POTASSIUM 3.8 mmol/L (3.5-5.1)
[2019-06-04] MEDS ORDERED: NS 2,000 ML MISC PRN (07:46)
[2019-06-04] MEDS ORDERED: HEPARIN IV PRN (07:46)
[2019-06-04] MEDS ORDERED: TIGHT: 0.2 ML/HR FOR DIALYSIS MISC PRN (07:46)
[2019-06-04] MEDS: APRESOLINE PO SCH (13:58)
[2019-06-04] MEDS: PRINIVIL PO SCH (13:59)
[2019-06-04] MEDS: MYCOSTATIN SUSP PO SCH ×5 (14:00→20:40)
[2019-06-04] MEDS: NORVASC PO SCH (14:00)
[2019-06-04] MEDS: CELEXA PO SCH (14:00)
[2019-06-04] MEDS: ASPIRIN PO SCH (14:00)
[2019-06-04] MEDS: HEPARIN SUBQ SCH ×2 (14:01→20:40)
[2019-06-04] MEDS: NON-FORMULARY BULK MED BOTH EYES SCH ×3 (14:02→16:46)
[2019-06-04] MEDS: IMDUR PO SCH (15:08)
[2019-06-04] MEDS: PRILOSEC PO SCH ×3 (15:10→20:40)
--- NOTE | 2019-06-04 19:58 | PROGRESS NOTE ---
DATE: 06/04/2019 SUBJECTIVE: The patient is resting in bed. She has been hallucinating as per the nursing staff and the patient's daughter. OBJECTIVE: Vital Signs: Temperature 97.6 degrees, blood pressure 130/62, heart rate 60, respirations 14, O2 saturation is 100% on 2 L nasal cannula. General: This is a chronically ill- appearing, elderly female, lying in bed in no acute distress. Heart: S1, S2 normal. Regular rate and rhythm. Lungs: Equal air entry bilaterally. No wheezing. No rales. No rhonchi. Abdomen: Positive bowel sounds. Soft, nontender, nondistended. Extremities: Trace pedal edema. Neurologic: The patient is awake, but hallucinating. She is able to move all 4 extremities. LABORATORY: White blood cell count 6.2, hemoglobin 11, hematocrit 36, platelets 145,000. Sodium 135, potassium 3.8, chloride 93, CO2 of 24, BUN 56, creatinine 4.3, glucose 108, calcium 10. ASSESSMENT AND PLAN: 1. Encephalopathy vs Dementia. The patient has been hallucinating. However, according to the nursing staff and the patient's daughter, this occurs frequently. We will monitor the patient's mental status closely. A head CT done on admission was noted to be unremarkable. 2. Gastritis. Continue on proton pump inhibitor therapy. 3. End stage renal disease. Management as per the multi purpose machine operator. 4. Labile hypertension. The patient's blood pressures have been labile. We will adjust the antihypertensive regimen. 5. Situational depression. Continue on Celexa. 6. Anxiety disorder. Continue on Xanax. 7. Deep vein thrombosis prophylaxis. Continue on heparin. 8. Disposition. Continue with physical therapy. Once the patient is medically stable, she will be discharged home with home health. cc: Maryellen Flores MD [facility]
[2019-06-04] MEDS: LIPITOR PO SCH (20:40)
[2019-06-04] MEDS: XANAX PO SCH (20:40)
[2019-06-04] MEDS: XALATAN 0.005% OPH SOLN BOTH EYES SCH (20:40)
--- NOTE | 2019-06-04 21:43 | NEPHROLOGY PROGRESS NOTE ---
DATE: 06/04/2019 SUBJECTIVE: She is still having episodes of hallucinating and picking, and talking to people. The family states that this is a typical behavior pattern that happens at home as well when she does not sleep well. She has been able to eat better and has not been suffering with nausea, vomiting, or dysphagia. OBJECTIVE: Vital Signs: Blood pressure 130/62, heart rate 60, respirations 14, afebrile. General: No acute distress. Skin: Warm and dry. Conjunctivae are pink. Neck: Neck veins are distended. Heart: Regular with a gallop. Lungs: Equal. No crackles. Abdomen: Soft, nontender. Bowel sounds present. Extremities: No edema, clubbing, or cyanosis. IMPRESSION/PLAN: 1. Hypotension. I will stop her hydralazine and observe her blood pressure overnight. She remains on amlodipine, isosorbide, lisinopril. 2. Altered sensorium. Again, family states this is not unusual. 3. Chronic kidney disease 5B. She will have her next routine dialysis treatment on Thursday. Electrolytes/acid base in target. cc: David Espinoza MD
[2019-06-05] MEDS: PHOSLO PO SCH ×5 (06:11→18:42)
[2019-06-05 06:51] LABS: HEMATOCRIT 36.6 % (37.0-47.0); HEMOGLOBIN 11.7 g/dL (12.0-16.0); MCV 84.3 FL (81-99); MPV 10.9 FL (7.4-10.4); RBC 4.34 XMIL (4.2-5.4); RDW 18.2 % (11.5-14.5); WBC 5.44 X1000 (4.8-10.8)
[2019-06-05 07:31] LABS: ALBUMIN 3.2 g/dL (3.5-5.0); CALCIUM 10.2 mg/dL (8.8-10.2); CREATININE 3.4 mg/dL (0.5-0.9); PHOSPHORUS 2.9 mg/dL (2.7-4.5); POTASSIUM 3.6 mmol/L (3.5-5.1)
[2019-06-05] MEDS: CELEXA PO SCH (09:47)
[2019-06-05] MEDS: PRILOSEC PO SCH ×2 (09:47→20:10)
[2019-06-05] MEDS: HEPARIN SUBQ SCH ×2 (09:48→20:09)
[2019-06-05] MEDS: MYCOSTATIN SUSP PO SCH ×4 (09:48→20:09)
[2019-06-05] MEDS: NON-FORMULARY BULK MED BOTH EYES SCH ×3 (09:48→16:00)
[2019-06-05] MEDS: ASPIRIN PO SCH (09:49)
[2019-06-05] MEDS: IMDUR PO SCH (10:04)
[2019-06-05] MEDS: PRINIVIL PO SCH (10:04)
[2019-06-05] MEDS: NORVASC PO SCH (10:04)
[2019-06-05] MEDS ORDERED: NS 250 ML IV ONE (14:57)
[2019-06-05 17:50] LABS: ALLEN TEST YES; BE 6.1 mmoll (-3.0-3.0); BLOOD TYPE ARTERIAL; HCO3-(ACT) 29.7 mmoll (20.0-26.0); METHB 0.7 % (0.0-1.5); O2(CT) 14.1 mL/dL (15.0-23.0); O2HB 96.2 % (95.0-99.0); PCO2(98.6) 43 mmHg (35-45); PO2(98.6) 101 mmHg (60-100); SAMPLE BLOOD; SAO2 97.9 % (95.0-100.0); THB 10.3 g/dL (11.5-17.4); pH(98.6) 7.46 (7.35-7.45)
[2019-06-05 17:51] LABS: MODALITY CANNULA
--- NOTE | 2019-06-05 18:07 | PROGRESS NOTE ---
DATE: 06/05/2019 SUBJECTIVE: The patient was noted to be lethargic this afternoon and hypotensive with systolic running in the 80s. The patient did not eat as per the nursing staff. She is also very difficult to arouse. OBJECTIVE: Vital Signs: Temperature 97 degrees, blood pressure 80/41, heart rate 66, respirations 11, O2 saturations 100% on 2 L nasal cannula. General: This is a chronically ill- appearing elderly female lying in bed in no acute distress. Skin: The patient has multiple healing excoriations on her arms and legs. Head: Normocephalic, atraumatic. Heart: S1, S2 normal. Regular rate and rhythm. Lungs: Equal air entry bilaterally. No wheezing, no rales, no rhonchi. Abdomen: Positive bowel sounds. Soft, nontender, nondistended. Extremities: Trace pedal edema. 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 Neurologic: The patient is lethargic. LABS: White blood cell count 5.4, hemoglobin 11, hematocrit 36, platelets 177,000. Sodium 136, potassium 3.6, chloride 96, CO2 28, BUN 29, creatinine 3.4, glucose 127. ASSESSMENT AND PLAN: 1. Encephalopathy. The patient is lethargic and difficult to arouse. She still remains hypotensive despite all of her antihypertensive medications being held today. Will order a head CT and ammonia level. 2. Hypotension. The patient had an echocardiogram done during this hospitalization that was unremarkable. Will check cardiac enzymes and start the patient on Balaji- Synephrine. The patient did not respond to a fluid bolus. 3. Chronic kidney disease stage 5. Management as per Dr. Espinoza. 4. Gastritis. Continue on Protonix. 5. Situational depression. Aware. 6. Deep vein thrombosis prophylaxis. Continue on heparin. 7. Disposition. The patient's clinical status has declined in the last 12 hours. The patient will be transferred to the ICU and will be started on a Balaji-Synephrine drip. We will monitor her mental status and blood pressures closely. The patient is currently a full code at the request of the family. cc: Maryellen Flores MD [facility]
--- NOTE | 2019-06-05 18:33 | Diag Imaging Result Doc PS360 ---
CT HEAD W/O CONTRAST - 06/05/2019 INDICATION: encephalopathy COMPARISON: 05/31/2019 FINDINGS: There is stable mild cerebral white matter chronic microvascular disease. No intracranial mass or hemorrhage. There is no acute disease or change from prior. IMPRESSION: No acute disease or change from prior. This exam was performed using automated exposure control, adjustment of mA or kV according to patient size, and/or use of iterative reconstruction technique Electronically signed by Matthew Dong 06/05/2019 6:30 PM
--- NOTE | 2019-06-05 18:58 | Diag Imaging Result Doc PS360 ---
CHEST-PORTABLE - 06/05/2019 INDICATION: dyspnea COMPARISON: 06/01/2019 FINDINGS: Stable pacemaker. Stable significant cardiomegaly and pulmonary vascular congestion. Stable hazy interstitial pulmonary edema. No large pleural effusion. IMPRESSION: No change from prior. Electronically signed by Matthew Dong 06/05/2019 6:56 PM
--- NOTE | 2019-06-05 19:49 | EKG Report ---
Test Performed on : 06/05/2019 7:40:04 PM Test Reason : hypotension Blood Pressure : / mmHG Vent. Rate : 060 BPM Atrial Rate : 060 BPM P-R Int : 244 ms QRS Dur : 108 ms QT Int : 492 ms P-R-T Axes : -20 -45 -86 degrees QTc Int : 492 ms Atrial-paced rhythm with prolonged AV conduction Left anterior fascicular block Minimal voltage criteria for LVH, may be normal variant T wave abnormality, consider inferior ischemia T wave abnormality, consider anterolateral ischemia Prolonged QT Abnormal ECG When compared with ECG of 28-MAY-2019 22:36, (Unconfirmed) premature ventricular complexes. are no longer present T wave inversion now evident in Inferior leads T wave inversion now evident in Anterolateral leads Suspect recent non-[place] Confirmed by Roger GRIDER, Raúl Fuentes ([id number]) on 06/06/2019 8:21:21 AM
[2019-06-05] MEDS: LIPITOR PO SCH (20:10)
[2019-06-05] MEDS: XALATAN 0.005% OPH SOLN BOTH EYES SCH (20:15)
[2019-06-06 05:19] LABS: HEMATOCRIT 32.1 % (37.0-47.0); HEMOGLOBIN 10.2 g/dL (12.0-16.0); MCH 26.8 PG (27-31); MCHC 31.8 g/dL (33-37); MCV 84.5 FL (81-99); MPV 10.4 FL (7.4-10.4); RBC 3.8 XMIL (4.2-5.4); WBC 7.29 X1000 (4.8-10.8)
[2019-06-06 05:56] LABS: ALBUMIN 2.7 g/dL (3.5-5.0); CALCIUM 9.9 mg/dL (8.8-10.2); CREATININE 4.1 mg/dL (0.5-0.9); PHOSPHORUS 3.5 mg/dL (2.7-4.5); POTASSIUM 3.8 mmol/L (3.5-5.1)
[2019-06-06] MEDS: PHOSLO PO SCH ×3 (06:13→15:59)
[2019-06-06] MEDS: PRILOSEC PO SCH ×2 (08:29→20:06)
[2019-06-06] MEDS: HEPARIN SUBQ SCH ×2 (08:29→20:07)
[2019-06-06] MEDS: ASPIRIN PO SCH (08:29)
[2019-06-06] MEDS: MYCOSTATIN SUSP PO SCH ×4 (08:29→20:06)
--- NOTE | 2019-06-06 09:36 | PROGRESS NOTE ---
DATE: 06/06/2019 SUBJECTIVE: The patient is sleepy this morning. She will awaken when her name is called. OBJECTIVE: Vital Signs: Temperature 97 degrees, blood pressure 101/50, heart rate 77, respirations 19, O2 saturation us 100% on 3 L nasal cannula. General: This is a chronically ill- appearing, elderly female lying in bed, in no acute distress. Heart: S1, S2 normal. Regular rate and rhythm. Lungs: Equal air entry bilaterally. No wheezing. No rales. No rhonchi. Abdomen: Positive bowel sounds. Soft, nontender, nondistended. Extremities: There is 1+ edema. No cyanosis. No calf tenderness. Neurologic: The patient is lethargic but will awaken when her name is called. She is able to move all 4 extremities. Labs: Sodium 137, potassium 3.8, chloride 97, CO2 of 24, BUN 79, creatinine 4.1, glucose 133, albumin 2.7. ASSESSMENT AND PLAN: 1. Hypotension. We will check a cortisol level this morning. The patient remains hypotensive. We will continue to hold the patient's antihypertensive medications. 2. Encephalopathy with dementia. Aware. We will continue to monitor the patient's mental status closely. Repeat imaging is negative at this time. 3. Chronic kidney disease stage 5. Management as per the market analysis director. 4. Gastritis. Continue on Protonix. 5. Deep venous thrombosis prophylaxis. Continue on heparin. cc: Maryellen Flores MD
[2019-06-06] MEDS: NON-FORMULARY BULK MED BOTH EYES SCH ×3 (10:07→15:59)
[2019-06-06] MEDS ORDERED: NS 500 ML IV ONE ×2 (15:39→23:04)
--- NOTE | 2019-06-06 16:33 | NEPHROLOGY PROGRESS NOTE ---
DATE: 06/06/2019 SUBJECTIVE: The patient is resting in bed. She will arouse and say hello and yes to pretty much anything that is asked of her. OBJECTIVE: Vital Signs: Temperature 97 degrees, pulse 60, respiratory rate 19, blood pressure 115/50. Intake 610 mL. Output not measured. General: Chronically ill- appearing, elderly female, resting in bed. She does not appear in distress but she is quite obtunded. HEENT: Normocephalic, atraumatic. Oral mucosa is dry. Neck: Supple with trace JVD in a reclined position. Cardiovascular: Regular rate and rhythm with a gallop. Pulmonary: Equal excursion. Decreased breath sounds. Abdomen: Soft, positive bowel sounds. Genitourinary: Minimal void. Extremities: No clubbing, cyanosis, no edema at this time. Integumentary: Skin is warm and dry. She has significant excoriation to her buttocks. Neurologic: Again obtundation will respond. LABORATORY DATA: WBC of 7.2, hemoglobin 10.2, sodium 137, potassium 3.8, CO2 24, creatinine 4.1. ASSESSMENT AND PLAN: 1. Chronic kidney disease 5D. Thursday, , Thursday are her routine dialysis days. We will plan to dialyze her then. 2. Hypotension. Has modest improvement. Her hydralazine remains held. Discussed with Dr. Flores. Normal LVEF, cortisol. No evidence of sepsis. CXR with pulmonary edema. Will give 500 ml NS. rg 3. Altered sensorium. Waxes and wanes. Her imaging has been negative. Dictated by SHAHIDA Meek for David Espinoza MD Face to face encounter, data reviewed, discussed with Beverly Ponce on 06/06/19. I agree with the above assessment and plan of care. rg cc: David Espinoza MD [facility]
[2019-06-06] MEDS: LIPITOR PO SCH (20:05)
[2019-06-06] MEDS: XALATAN 0.005% OPH SOLN BOTH EYES SCH (20:06)
[2019-06-06] MEDS: NEO-SYNEPHRINE 50 MG in NS 250 ML IV SCH (23:35)
[2019-06-07] MEDS: NEO-SYNEPHRINE 50 MG in NS 250 ML IV SCH (04:55)
[2019-06-07] MEDS: PHOSLO PO SCH ×3 (06:00→16:12)
[2019-06-07] MEDS ORDERED: TIGHT: 0.2 ML/HR FOR DIALYSIS MISC PRN (06:29)
[2019-06-07] MEDS ORDERED: NS 2,000 ML MISC PRN (06:29)
[2019-06-07] MEDS ORDERED: HEPARIN IV PRN (06:29)
[2019-06-07] MEDS: MYCOSTATIN SUSP PO SCH ×4 (08:10→21:17)
[2019-06-07] MEDS: ASPIRIN PO SCH (08:10)
[2019-06-07] MEDS: PRILOSEC PO SCH ×2 (08:11→21:17)
[2019-06-07] MEDS: HEPARIN SUBQ SCH ×2 (08:11→21:16)
[2019-06-07] MEDS: NON-FORMULARY BULK MED BOTH EYES SCH ×3 (08:13→16:12)
[2019-06-07] MEDS: CELEXA PO SCH (09:17)
--- NOTE | 2019-06-07 09:41 | PROGRESS NOTE ---
DATE: 06/07/2019 SUBJECTIVE: Ms. Kline presented on 05/29/2019 with nausea and vomiting. She is a patient of Dr. Anderson. She was admitted with intractable nausea, vomiting, hypertensive urgency, end-stage renal disease, diabetes mellitus type 2. Blood pressure has been low. Echocardiogram done on 06/01/2019 normal left ventricular size, ejection fraction 60% to 65%. Mild tricuspid regurgitation. EXAM: She is awake and alert. She is on Balaji-Synephrine. Still running in the 90s and continues to dip down. Temp 98.0 degrees, pulse 60, respirations 13, blood pressure 117/50. HEENT: Pupils are equal and round. Lungs: Clear in all lung valdez. Cardiovascular: Regular rhythm and rate without murmur or S3. LABORATORY: Urine output is 3300 mL. ASSESSMENT AND PLAN: 1. Hypotension. Cortisol level being checked. Continue to hold patient's antihypertensive medication. 2. Encephalopathy and dementia. Continue present management. Try and hold any neurotoxic medications. 3. Chronic kidney disease stage 5. Volume status and electrolytes, continue to manage. 4. Gastritis on Protonix. 5. Review of orders this morning. I do not see any electrolytes from today. Nephrology is following. MEDICATIONS: 1. I will order aspirin. He is on aspirin 81 mg daily. 2. Lipitor 40 mg at bedtime. 3. Calcium acetate 1334 mg p.o. daily. 4. Celexa 20 mg a day. 5. Xanax 0.5 mg at bedtime. 6. Prilosec 40 mg b.i.d. 7. Balaji-Synephrine drip. cc: Carlton Oquendo MD
[2019-06-07 09:49] LABS: ALBUMIN 2.8 g/dL (3.5-5.0); CALCIUM 10.3 mg/dL (8.8-10.2); CREATININE 5.1 mg/dL (0.5-0.9); PHOSPHORUS 3.2 mg/dL (2.7-4.5)
[2019-06-07] MEDS ORDERED: NS 500 ML IV ONE (10:21)
[2019-06-07 10:42] LABS: HEMATOCRIT 28.1 % (37.0-47.0); MCH 26.8 PG (27-31); MCV 83.6 FL (81-99); MPV 10.9 FL (7.4-10.4); RBC 3.36 XMIL (4.2-5.4); RDW 17.6 % (11.5-14.5); WBC 7.99 X1000 (4.8-10.8)
--- NOTE | 2019-06-07 12:00 | NEPHROLOGY PROGRESS NOTE ---
DATE: 06/07/2019 SUBJECTIVE: The patient is resting in bed. She awakens easily and is alert and oriented this morning. OBJECTIVE: Vital Signs: Temperature 98.1 degrees, pulse 63, respiratory rate 15, blood pressure has been quite labile overnight with systolic in the 70s and currently 104/73. She had Balaji- Synephrine restarted. Intake 1.7 L, output none. General: Chronically ill- appearing, elderly female, resting in bed but no acute distress. HEENT: Normocephalic, atraumatic. Arcus senilis. Oral mucosa moist. Neck: Supple with trace JVD. Cardiovascular: Regular rate and rhythm with a gallop. Pulmonary: Equal excursion. Abdomen: Soft. Positive bowel sounds. : Minimal void. Hemodialysis assist. Extremities: No clubbing, cyanosis. No edema. Integumentary: Skin is warm and dry. LAB DATA: No new labs today. Her last potassium was 3.8, and last creatinine 4.1, CO2 24. ASSESSMENT/PLAN: 1. Chronic kidney disease 5D. Today is her routine dialysis day. She will be on a 3 K bath/UF to dry weight, 4-hour treatment. 2. Hypotension. She required fluid bolus yesterday. She has no evidence of sepsis. Overnight, her systolic blood pressures got down into the 60s to 70s. She is Balaji- Synephrine infusing. This may restrict our ability to pull fluid off during dialysis. Dictated by SHAHIDA Meek for David Espinoza MD Face to face encounter, data reviewed, discussed with Beverly Ponce on 06/07/19. I agree with the above assessment and plan of care. cc: David Espinoza MD [facility]
[2019-06-07] MEDS: LIPITOR PO SCH (21:17)
[2019-06-07] MEDS: XANAX PO SCH (21:18)
[2019-06-07] MEDS: XALATAN 0.005% OPH SOLN BOTH EYES SCH ×2 (21:22→21:50)
[2019-06-07] MEDS: HUMULIN R SUBQ SCH (23:06)
[2019-06-08] MEDS: PHOSLO PO SCH ×3 (06:19→16:36)
[2019-06-08] MEDS: HUMULIN R SUBQ SCH ×4 (07:08→20:20)
[2019-06-08] MEDS: HEPARIN SUBQ SCH ×2 (08:13→20:33)
[2019-06-08] MEDS: MYCOSTATIN SUSP PO SCH ×4 (08:14→20:33)
[2019-06-08] MEDS: CELEXA PO SCH (08:14)
[2019-06-08] MEDS: PRILOSEC PO SCH ×2 (08:14→20:32)
[2019-06-08] MEDS: ASPIRIN PO SCH (08:14)
[2019-06-08] MEDS: NON-FORMULARY BULK MED BOTH EYES SCH ×3 (08:15→16:30)
--- NOTE | 2019-06-08 10:01 | PROGRESS NOTE ---
DATE: 06/08/2019 SUBJECTIVE: Ms. Kline feels much better, awake and pleasant. OBJECTIVE: Vital Signs: She remains afebrile, temperature 97.5 degrees, pulse 67, respirations 12, blood pressure 131/52. HEENT: Pupils are equal and round. Lungs: Clear in all lung valdez. Cardiovascular: Regular rhythm and rate without murmur or S3. Abdomen: Soft. Skin: Warm and dry. ASSESSMENT AND PLAN: 1. Chronic kidney disease stage 5D, on routine dialysis today. Volume status and electrolytes look good. 2. Hypotension. She is off of her Balaji-Synephrine. Blood pressure is doing better. There is no evidence of sepsis, so that is improving. Will see how much they can pull off from dialysis. 3. Encephalopathy, underlying dementia. This is improved. 4. Gastritis, aware, on Protonix. REVIEW OF ORDERS: Patient getting latanoprost eyedrops 0.005% to both eyes, aspirin 81 mg a day, Lipitor 40 mg at bedtime, calcium acetate 1334 mg before meals, Celexa 20 mg a day, omeprazole 40 mg twice a day. cc: Carlton Oquendo MD
[2019-06-08] MEDS: LIPITOR PO SCH (20:31)
[2019-06-08] MEDS: XANAX PO SCH (20:31)
[2019-06-08] MEDS: XALATAN 0.005% OPH SOLN BOTH EYES SCH (20:37)
[2019-06-09] MEDS ORDERED: TIGHT: 0.2 ML/HR FOR DIALYSIS MISC PRN (06:28)
[2019-06-09] MEDS ORDERED: NS 2,000 ML MISC PRN (06:28)
[2019-06-09] MEDS ORDERED: HEPARIN IV PRN (06:28)
[2019-06-09] MEDS: HUMULIN R SUBQ SCH ×4 (06:39→20:21)
[2019-06-09] MEDS ORDERED: D50W SYRINGE IV ONE (06:41)
[2019-06-09] MEDS: PHOSLO PO SCH ×4 (06:43→17:15)
[2019-06-09 08:14] LABS: HEMATOCRIT 26.6 % (37.0-47.0); HEMOGLOBIN 8.5 g/dL (12.0-16.0); MCH 27.3 PG (27-31); MCV 85.5 FL (81-99); MPV 9.9 FL (7.4-10.4); RBC 3.11 XMIL (4.2-5.4); WBC 5.77 X1000 (4.8-10.8)
[2019-06-09] MEDS: MYCOSTATIN SUSP PO SCH ×4 (08:16→20:21)
[2019-06-09] MEDS: PRILOSEC PO SCH ×2 (08:16→20:21)
[2019-06-09] MEDS: ASPIRIN PO SCH (08:17)
[2019-06-09] MEDS: NON-FORMULARY BULK MED BOTH EYES SCH ×3 (08:17→17:16)
[2019-06-09] MEDS: CELEXA PO SCH (08:17)
[2019-06-09] MEDS: HEPARIN SUBQ SCH ×2 (08:17→20:21)
[2019-06-09 08:43] LABS: CALCIUM 10.2 mg/dL (8.8-10.2); CREATININE 3.8 mg/dL (0.5-0.9); PHOSPHORUS 2.3 mg/dL (2.7-4.5); POTASSIUM 3.3 mmol/L (3.5-5.1)
--- NOTE | 2019-06-09 14:18 | GASTROENTEROLOGY PROGRESS NOTE ---
Dictation Error. Patient not seen today. cc: Dain Gates MD [facility]
--- NOTE | 2019-06-09 17:22 | NEPHROLOGY PROGRESS NOTE ---
DATE: 06/09/2019 SUBJECTIVE: Patient resting in bed. She is awake and alert. She is confused about time. OBJECTIVE: Temperature 98.4, pulse 52, respiratory rate 11, blood pressure 121/45. Intake 900 mL, output not measured. General: Elderly female resting in bed. Awake and alert. She is in no acute distress. HEENT: Normocephalic, atraumatic. GLADYS. Neck is supple with JVD. Cardiovascular: Regular rate and rhythm. Pulmonary: Clear bilaterally. Equal excursion. Abdomen soft, positive bowel sounds. : Not inspected. Minimal void. Extremities: No cyanosis, clubbing, or edema. At the left lower extremity, she has a partial foot amputation that is old. Integumentary: Skin warm and dry. LAB DATA: WBC 5.7, hemoglobin 8.5. Sodium 133, potassium 3.3, CO2 of 28, creatinine 3.8, albumin 3.0. ASSESSMENT AND PLAN: 1. Chronic kidney disease, 5D. Today is her routine dialysis day. She dialyzes on a Thursday, , Thursday schedule. 2. Hypotension, resolved. Dictated by SHAHIDA Meek for David Espinoza MD Face to face encounter, data reviewed, discussed with Beverly Ponce on 06/09/19. I agree with the above assessment and plan of care. cc: David Espinoza MD [facility]
--- NOTE | 2019-06-09 17:49 | PROGRESS NOTE ---
DATE: 06/09/2019 SUBJECTIVE: Ms. Kline says she feels good. She appears comfortable. Breathing comfortably. OBJECTIVE: Vital signs: Temperature 98.1 degrees, pulse 60, respirations 20, blood pressure 107/47. HEENT: Pupils are equal and round. Lungs: Clear in all lung valdez. Cardiovascular: Regular rhythm and rate without murmur or S3. Abdomen: Soft. Urine output was 1300 mL. ASSESSMENT AND PLAN: 1. Chronic kidney disease stage 5D. Routine dialysis today. She will have dialysis Tuesdays, , and Sundays and Dr. Espinoza said she can go home. 2. Hypotension, which has resolved. Plan is to eventually go back to peritoneal dialysis. No nausea or vomiting. 3. Encephalopathy has improved. 4. History of gastritis. We will see if we can get her ready to go home. cc: Carlton Oquendo MD
[2019-06-09] MEDS: XALATAN 0.005% OPH SOLN BOTH EYES SCH (20:21)
[2019-06-09] MEDS: LIPITOR PO SCH (20:21)
[2019-06-09] MEDS: XANAX PO SCH (20:21)
[2019-06-10] MEDS: HUMULIN R SUBQ SCH ×4 (06:00→23:49)
[2019-06-10] MEDS: PHOSLO PO SCH ×4 (06:11→18:16)
[2019-06-10] MEDS: NON-FORMULARY BULK MED BOTH EYES SCH ×3 (08:48→18:16)
[2019-06-10] MEDS: PRILOSEC PO SCH ×2 (08:49→23:50)
[2019-06-10] MEDS: ASPIRIN PO SCH (08:49)
[2019-06-10] MEDS: HEPARIN SUBQ SCH ×2 (08:49→20:00)
[2019-06-10] MEDS: MYCOSTATIN SUSP PO SCH ×4 (08:49→23:51)
[2019-06-10] MEDS: CELEXA PO SCH (08:49)
--- NOTE | 2019-06-10 13:40 | PROGRESS NOTE ---
DATE: 06/10/2019 SUBJECTIVE: Ms. Kline was lethargic. You can arouse her but yesterday she did talk to me. Today she was sleepy. She appears comfortable. She is breathing comfortably. OBJECTIVE: Temp 98.3 degrees, blood pressures have been running 120 over 30s. She has had some lower pressures though today. Looking over med list she takes Xanax at night. Pulse 60, respirations 14, blood pressure 120/30. Pupils are equal round. Lungs are clear in all lung valdez. Cardiovascular regular rate without murmur or S3. Abdomen is soft. Skin is warm and dry. Blood sugars 114, 74, 134. ASSESSMENT AND PLAN: 1. Chronic kidney disease stage 5D, getting hemodialysis Tuesdays, , and Sundays. From Dr. Espinoza standpoint, she can go home. 2. Hypotension, which appears to have improved. She is pretty sleepy. 3. Encephalopathy I thought has improved as well. I think she has some underlying dementia. 4. History of gastritis. 5. Looking at her medications, she has been sleepy all day. I am going to stop the Xanax at night and I am going to stop her Celexa and see if can wake up a little bit. 6. History of hypercholesterolemia. Aware. cc: Carlton Oquendo MD
[2019-06-10] MEDS: XALATAN 0.005% OPH SOLN BOTH EYES SCH (20:00)
[2019-06-10] MEDS ORDERED: XANAX PO SCH (21:00)
--- NOTE | 2019-06-10 22:37 | NEPHROLOGY PROGRESS NOTE ---
DATE: 06/10/2019 SUBJECTIVE: She remains lethargic today. Unable answer questions. OBJECTIVE: Vital Signs: Blood pressure 120/30, heart rate 60, respirations 14, afebrile. General: No acute distress. Skin: Warm and dry. HEENT: Conjunctivae are pale. Oropharynx is dry. Neck: Veins appear distended with hepatojugular reflux. Heart: Regular with no gallops. Lungs: Have equal breath sounds. No crackles or wheezes. Abdomen: Benign. Extremities: No edema, clubbing or cyanosis. Transmetatarsal amputation, left foot. IMPRESSION: 1. Chronic kidney disease 5D. Her next routine dialysis treatment will be tomorrow. 2. Hypotension, resolved. 3. Electrolytes/acid base/anemia. Hemoglobin is trending downward. We will monitor and transfuse if needed. cc: David Espinoza MD
[2019-06-10] MEDS: LIPITOR PO SCH (23:51)
[2019-06-11] MEDS: HUMULIN R SUBQ SCH ×2 (06:33→14:36)
[2019-06-11] MEDS: PHOSLO PO SCH ×2 (06:35→14:18)
[2019-06-11 07:09] LABS: HEMATOCRIT 25.2 % (37.0-47.0); HEMOGLOBIN 7.8 g/dL (12.0-16.0); MCH 26.6 PG (27-31); RBC 2.93 XMIL (4.2-5.4); RDW 18.2 % (11.5-14.5); WBC 5.93 X1000 (4.8-10.8)
[2019-06-11 07:10] LABS: MPV 10.5 FL (7.4-10.4)
[2019-06-11 08:07] LABS: ALBUMIN 2.8 g/dL (3.5-5.0); CALCIUM 9.6 mg/dL (8.8-10.2); CREATININE 3.7 mg/dL (0.5-0.9); PHOSPHORUS 2.6 mg/dL (2.7-4.5); POTASSIUM 4.7 mmol/L (3.5-5.1)
[2019-06-11] MEDS ORDERED: TIGHT: 0.2 ML/HR FOR DIALYSIS MISC PRN (08:19)
[2019-06-11] MEDS ORDERED: HEPARIN IV PRN (08:19)
[2019-06-11] MEDS ORDERED: NS 2,000 ML MISC PRN (08:19)
[2019-06-11] MEDS ORDERED: CELEXA PO SCH (09:00)
[2019-06-11] MEDS: HEPARIN SUBQ SCH (09:29)
[2019-06-11] MEDS: ASPIRIN PO SCH (09:30)
[2019-06-11] MEDS: PRILOSEC PO SCH (09:30)
[2019-06-11] MEDS: MYCOSTATIN SUSP PO SCH ×2 (09:30→14:18)
--- NOTE | 2019-06-11 12:29 | DISCHARGE SUMMARY ---
ADMISSION DATE: 05/29/2019 DISCHARGE DATE: 06/11/2019 HISTORY OF PRESENT ILLNESS: This is an 78-year-old who presented on 05/29/2019, patient of Dr. Anderson and followed by Dr. Espinoza, with end-stage renal disease on renal dialysis Tuesdays, , and Saturdays, history of hypertension, diabetes mellitus type 2, who presented to the emergency department after 1-day history of having worsening nausea and vomiting. Patient states she could not keep anything down, not feeling well. She is a poor historian. Most of the history came from the family at the time of examination. Patient denied headache, fever, chills, chest pain, shortness of breath, or any weight changes. PAST MEDICAL HISTORY: 1. Includes end-stage renal disease on hemodialysis Tuesdays, , and Saturdays. 2. History of hypertension. 3. Diabetes mellitus type 2. PAST SURGICAL HISTORY: 1. She has had a forefoot amputation. 2. Bilateral hip surgery. 3. An ICD. ALLERGIES: No known allergies. ADMISSION DIAGNOSES: 1. Intractable nausea and vomiting. 2. Hypertensive urgency in the face of end-stage renal disease and diabetes. HOSPITAL COURSE: The blood pressure improved. The nausea resolved as well, and Nephrology was following. She was continued on her routine hemodialysis. She has had lower extremity amputation in the past for peripheral vascular disease. Head CT done on 05/31 without contrast showed no acute disease or intracranial pathology. She seemed to show steady improvement. We did get Gastroenterology involved because of the nausea and vomiting, felt she had esophagitis which could be reflux or could be fungal. She does have some gastritis. Echocardiogram done on 06/01: Normal left ventricular size. Estimated ejection fraction of 60% to 65%. Mild tricuspid regurgitation. Normal right ventricular size. Aortic valve opened well and normal. Patient showed improvement. No further nausea, and felt she is ready go home on 06/11/2019. Volume status and electrolytes look good. DISCHARGE ORDERS: She will be on her Xanax 0.5 mg at bedtime, aspirin 81 mg a day, Lipitor 40 mg at bedtime, Simbrinza eye drops, PhosLo 1334 mg p.o. q.a.c., Celexa 20 mg a day, heparin 5000 units subcutaneous q. 12 hours, Xalatan 0.005% I think she gets in both eyes every night, Prilosec 40 mg twice a day. cc: Carlton Oquendo MD
[2019-06-11] MEDS: NON-FORMULARY BULK MED BOTH EYES SCH ×2 (14:15→14:18)
[2019-06-11 14:49] VITALS: BP 106/43
--- NOTE | 2019-06-11 15:32 | NEPHROLOGY PROGRESS NOTE ---
DATE: 06/11/2019 SUBJECTIVE: She is currently on dialysis. She is spontaneously awake and answers my questions. Much more alert. Denies pain. She states she has not been eating. OBJECTIVE: Vital Signs: Blood pressure 105/40, heart rate 66, respiration 18, afebrile. Generally: No acute distress. Skin: Warm and dry. Neck: Neck veins are not distended. Heart: Regular with a gallop. Lungs: Equal. No crackles. Extremities: Have no edema, clubbing or cyanosis. IMPRESSION: 1. Chronic kidney disease 5D. Continue her routine dialysis today. Minimal ultrafiltration. 2. Electrolytes/acid base acceptable. 3. Anemia. Hemoglobin continues to trend downward. May require transfusion first of the week. cc: David Espinoza MD
== END 2019-06-11 16:16 | disposition home health service (06) | DRG 380 ==
LOC: ED 22:03 → OBSVTOIN 05-29 05:23 → 1N 05-29 05:23 → SUATTDRO 05-29 05:23 → INTOOBSV 05-29 05:23 → ICU 06-05 18:15 → 1N 06-09 10:02
PROVIDERS: ATTEND Emergency Medicine